=== PATIENT | female | born 1940 | race Caucasian/White ===

== ENCOUNTER 2023-05-18 11:00 | Inpatient (IN) | payer OTHER, MEDICARE ==
--- OUTSIDE RECORDS SUMMARY | 2023-05-18 11:04 | XMS REPORT | Continuity of Care Document ---
:1940 Author Organization [facility] t Address [address] [place] [address] [place] [id number] Care Team Providers Name Role Phone LINDSEYAbhishekSHERRILLBRIELLEMARIA CEdson Primary Care Physician Unavailable EMIL DUTTON Attending Clinician Unavailable SHANNAN BUI Attending Clinician Unavailable TYRONE PEACE Attending Clinician Unavailable Doctor Unassigned, [place] Attending Clinician Unavailable Yasir CARABALLO, Erick Negrete Attending Clinician Unavailable Mike Car DO Attending Clinician JOSE ALFREDO PREES Attending Clinician Ewa breanna Kendrick MD, Kwabena Guzman Attending Clinician [phone] Pasquale SERVIN, Mounika Phelps Attending Clinician [phone] [place] ODONNELL, Jose Alfredo [facility] Attending Clinician Pob, Adc Lab Main Attending Clinician Unavailable Mattie ODONNELL, Cheryl Attending Clinician CHERYL RICHARDSON Attending Clinician Unavailable Gurinder Rebolledo MD Attending Clinician GURINDER REBOLLEDO Attending Clinician Unavailable EMIL SCHUSTER Attending Clinician Unavailable Obi Attending Clinician Unavailable EMIL DUTTON Admitting Clinician Unavailable SHANNAN BUI Admitting Clinician Unavailable PASQUALE, MOUNIKA PHELPS Admitting Clinician Unavailable Pasquale SERVIN, Mounika Phelps Admitting Clinician [phone] Obi Admitting Clinician Unavailable Payers Payer Name Policy Type Policy Number Effective Date Expiration Date S steven MEDICARE B-[place]: [id number] 2003 [employer] 00:00:00 [employer] [id number] INSURANCE COMPANY - PLAN G (MEDICARE SUPPLEMENT) Problems Condition Condition Condition Status Onset Resolution Last Treating Co mments Source Name Details Category Date Date Treatment Clinician Date Atrial Atrial Disease Active Univers fibrillati fibrillati 6-11 it y of on, on, 00:00: [place] unspecifie unspecifie 00 Me dical d type d type Branch Chest Chest Disease Active Univers pain, pain, 6-10 ity of unspecifie [place]specifie 00:[place] d type d type 00 Medical Branch Allergies, Adverse Reactions, Alerts Allergy Allergy Status Severity Reaction(s) Onset Inactive Treating Comm ents Source Name Type Date Date Clinician Levoflox Propensi Active Other - See U nivers acin ty to comments 05-04 ity of adverse 00:00: [place] reaction 00 Medical s Branch LEVOFLOX DRUG Active Other-Cmnt Univ ers ACIN INGREDI 6 ity of 00:00: [place] 00 Medical Branch levoflox DA Active SV leg swelling HC A acin 4-27 Clear 00:00: [place] 00 [facility] levoflox DA Active [facility] acin 9 [place] 00:00: [facility]ope 00 dic [facility] Sulfa DA Active [place] [facility] (Sulfona 3-19 [place] mide 00:00: Orthope Antibiot 00 dic ics) Hospita [facility] iodine DA Active [place] [facility] 3-19 [place] 00:00: Orthope 00 dic Hospita l NO KNOWN Drug Active Univers ALLERGIE Class ity of S [facility] [place] [facility] Social History Social Habit Start Date Stop Date Quantity Comments Source Exposure to 2022-04-25 2022-05-05 Unable to assess Univers ity of SARS-CoV-2 00:00:00 02:23:00 [facility] (event) [place] Tobacco use and 2020-07-19 2020-07-19 Smokeless tobacco Un iversity of exposure 00:00:00 00:00:00 non-user [facility] [place] [facility] Sex Assigned At [birth year] Universit y of 00:00:00 00:00:00 [facility] [place] [facility] Smoking Status Start Date Stop Date Source Unknown if ever smoked [facility] Never smoked tobacco [facility] Medications Ordered Filled Start Stop Current Ordering Indication Dosage Frequency Signature Comments Components Source Medication Medication Date Date Medication? Clinician (SIG) Name Name clonazePAM Yes 1mg 1 mg, Univer s (KLONOPIN) 6-11 Oral, TID, ity of tablet 1 mg 19:00: First dose [place] 00 on [facility] 05/06/22 at Branch 1400, Until Discontinu ed, Routine apixaban Yes 2.5mg 2.5 mg, Unive rs (ELIQUIS) 6-11 Oral, BID, ity of tablet 2.5 18:15: First dose [place] mg 00 on [facility] 05/06/22 at Branch 1315, Until Discontinu ed, Routine
Indicatio ns: Non-Valvul ar Atrial Fibrillati on clonazePAM Yes 1mg Take 1 mg Un joselito 1 mg tablet 6-11 by mouth 3 it y of 17:17: (three) [place] 06 times Medical daily. Branch clonazePAM 2021-0 Yes 1mg Take 1 mg Un joselito 1 mg tablet 6-11 by mouth 3 it y of 17:17: (three) [place] 06 times Medical daily. Branch clonazePAM 2021-0 Yes 1mg Take 1 mg Un joselito 1 mg tablet 6-11 by mouth 3 it y of 17:17: (three) [place] 06 times Medical daily. Branch clonazePAM Yes 1mg Take 1 mg Un joselito 1 mg tablet 05-06 by mouth 3 it y of 17:17: (three) [place] 06 times Medical daily. Branch clonazePAM Yes 1mg Take 1 mg Un joselito 1 mg tablet 05-06 by mouth 3 it y of 17:17: (three) [place] 06 times Medical daily. [place] magnesium No 2g 2 g, IV Univ ers sulfate in 05-06 Piggyback, it y of water 2 12:00: 17:45 Administer [place] as gram/50 mL 00 :00 over 60 Medica l (4 %) Minutes, [place] infusion 2 ONCE, 1 g dose, On [facility] 05/06/22 at 0700, Routine KCL No 20meq 20 mEq, Univers (KLOR-CON 05-06 Oral, ity of M20) tablet 12:00: 16:45 ONCE, 1 [place] 20 mEq 00 :00 dose, On Medical Sat [place] 05/06/22 at 0700, Routine predniSONE No 20mg Take 20 mg Univers 20 mg 05-06 by mouth ity of tablet 10:49: 00:00 daily. [place] 53 :00 Medical [place] atorvastati Yes 80mg 80 mg, Univ ers n (LIPITOR) 05-06 Oral, QHS, it y of tablet 80 02:00: [place] dose [place] mg 00 [place] Sun [facility] 05/05/22 at [place] 2100, Until Discontinu ed, Routine apixaban 2021- No 1358 2.5mg Take 1 Unive rs 2.5 mg 05-06 tablet by ity of tablet 00:00: 04:59 mouth 2 [place] 00 :00 (two) Medical [facility] daily for 60 days. Indication s: atrial fibrillati on metoprolol 2021- No [id number] 25mg Take 1 Univers succinate 05-06 tablet by ity of XL 25 mg 24 00:00: 04:59 [place] hr tablet 00 :00 daily for Medic al 60 days. [place] apixaban 2021- No 1358 2.5mg Take 1 Unive rs 2.5 mg 6-11 08-11 tablet by ity of tablet 00:00: 04:59 mouth 2 [place] 00 :00 (two) Medical times [place] daily for 60 days. Indication s: atrial fibrillati on metoprolol 2021- No [id number] 25mg Take 1 Univers succinate 6- 08-11 tablet by ity of XL 25 mg 24 00:00: 04:59 [place] hr tablet 00 :00 daily for Medic al 60 days. Branch apixaban 2021- No 1358 2.5mg Take 1 Unive rs 2.5 mg 6- 08-11 tablet by ity of tablet 00:00: 04:59 mouth 2 [place] 00 :00 (two) Medical times [place] daily for 60 days. Indication s: atrial fibrillati on metoprolol No [id number] 25mg Take 1 Univers succinate 6- 08-11 tablet by ity of XL 25 mg 24 00:00: 04:59 mouth [place] hr tablet 00 :00 daily for Medic al 60 days. Branch apixaban 2021- No 1358 2.5mg Take 1 Unive rs 2.5 mg 6-10 03-11 tablet by ity of tablet 00:00: 04:59 mouth 2 [place] 00 :00 (two) Medical times [place] daily for 60 days. Indication s: atrial fibrillati on metoprolol No [id number] 25mg Take 1 Univers succinate 6- 08-11 tablet by ity of XL 25 mg 24 00:00: 04:59 mouth [place] hr tablet 00 :00 daily for Medic al 60 days. Branch apixaban 2021- No 1358 2.5mg Take 1 Unive rs 2.5 mg 6- 08-11 tablet by ity of tablet 00:00: 04:59 mouth 2 [place] 00 :00 (two) Medical times [place] daily for 60 days. Indication s: atrial fibrillati on metoprolol No [id number] 25mg Take 1 Univers succinate 6-11 08-11 tablet by ity of XL 25 mg 24 00:00: 04:59 mouth [place] hr tablet 00 :00 daily for Medic al 60 days. Branch predniSONE 2021- No [id number] 10mg Take 1 Univers 10 mg 05-06 tablet by ity of tablet 00:00: 04:59 mouth [place] 00 :00 daily for Medical 1 day. Branch HEPARIN 2021- No 60U/kg 2,724 Univer s SODIUM 6 06-10 Units (60 ity of (PORCINE) 18:30: 21:20 Units/kg [place] as 1,000 00 :00 ?45.4 kg), Medical UNIT/ML IV Push, Branch BOLUS ACS ONCE, 1 ORDER SET dose, On Sun05/05/22 at 1330, RUSSELL heparin 2021- No 12U/kg/ 12 Univer s 25,000 05-05 06-11 h Units/kg/h ity of Units/250 18:22: 18:06 r ?45.4 kg [place] mL 05 :34 (5.448 Medical (Premixed mL/hr, Branch Bag) in rounded to 0.45 % NS 5.45 mL/hr), IV Infusion, TITRATE, Parameters in Admin. Instr., Starting on Sun05/05/22 at 1322
CA UTION - If LMWH given in ER, AVOID bolus and start next dose/drip 12 hrs after ER dosage.&nb sp; M ust program rate using programmab le infusion pump.&nbsp ; Payton ck with the ordering provider first prior to any administra tion should the patient be on existing/a dditional anticoagul ant therapy. Rang e, Dosing and Testing: &nbs p;FOR [facility], [facility], AND [facility] ONLY &nbs p; - aPTT < 35: & nbsp;Bolus 5000 units, increase rate 300 units/hr&n bsp; - aPTT 35-44:&nbs p; Jai tanmay 3000 units, increase rate 200 units/hr&n bsp; - aPTT 45-54:&nbs p; In crease rate 100 units/hr&n bsp; - aPTT 55-85:&nbs p; NO CHANGE&nbs p; - aPTT 86-95:&nbs p; De crease rate 100 units/hr&n bsp; - aPTT 96-120:&nb sp; H old 30 minutes, decrease rate 150 units/hr&n bsp; - aPTT > 120: Hold 60 minutes, decrease rate 200 units/hr&n bsp; Check aPTT 6 hours after initiation , then Q6H after every change, aPTT Q12H once therapeuti c levels are reached.&n bsp; &nbs p; __ &n bsp;FOR [facility] ONLY - aPTT < 40: & nbsp;Bolus 5000 units, increase rate 300 units/hr&n bsp; - aPTT 40-49:&nbs p; Jai tanmay 3000 units, increase rate 200 units/hr&n bsp; - aPTT 50-59:&nbs p;&nbs p;Increase rate 100 units/hr&n bsp; - aPTT 60-85:&nbs p; NO CHANGE&nbs p; - aPTT 86-95:&nbs p; De crease rate 100 units/hr&n bsp; - aPTT 96-120:&nb sp; H old 30 minutes, decrease rate 150 units/hr&n bsp; - aPTT > 120: Hold 60 minutes, decrease rate 200 units/hr&n bsp; Check aPTT 6 hours after initiation , then Q6H after every change, aPTT Q12H once therapeuti c levels are reached.&n bsp; DO NOT ADJUST INITIAL BOLUS OR INITIAL INFUSION RATE.
regadenoson 2021- No [id number] .4mg 0.4 mg, Univers (LEXISCAN) 05-05 Slow IV ity o f injection 17:15: 17:00 Push, [place] 0.4 mg 00 :00 ONCE, 1 Medical dose, On Branch Sun05/05/22 at 1215, Routine
vulcan crewmember approving Restricted medication : KARI MENESES tc 2021- No [id number] 14.7mCi 14.7 Unive rs 99m-tetrofo 05-05 millicurie i ty of smin 17:00: 18:00 , [place] (MYOVIEW) 00 :00 Intravenou Medi michell injection s, ONCE, 1 Bran ch 14.7 dose, [facility] Sun05/05/22 at 1200, Routine predniSONE Yes 10mg 10 mg, Unive rs (DELTASONE) 05-05 Oral, ity of tablet 10 14:00: DAILY, [place] mg 00 First dose Medical on Sun Branch 05/05/22 at 0900, Until Discontinu ed, Routine aspirin Yes 81mg 81 mg, Univers chewable 10 Oral, ity of tablet 81 14:00: DAILY, [place] mg 00 First dose Medical on Sun Branch 05/05/22 at 0900, Until Discontinu ed, Routine levalbutero Yes .31mg 0.31 mg, U nivers l (XOPENEX) 05-05 Inhalation it y of nebulizer 13:00: , TID, [place] solution 00 First dose Medic al 0.31 mg on Sun Branch 05/05/22 at 0800, Until Discontinu ed, Routine heparin 2021- No 5000U 5,000 Univers (porcine) 05-05 Units, ity of injection 13:00: 18:23 Subcutaneo [place] 5,000 Units 00 :11 us, Q12H, Med ical First dose Branch on Sun05/05/22 at 0800, Until Discontinu ed, Routine KCL 2021- No 40meq 40 mEq, Univers (KLOR-CON 05-05 Oral, 5X ity o f M20) tablet 11:00: 18:59 DAY, 2 [place] as 40 mEq 00 :00 doses, Medical First dose Branch on Sun05/05/22 at 0600, Last dose on Sun05/05/22 at 1000, Routine acetaminoph Yes 650mg 650 mg, Un joselito en 05-05 Oral, ity of (TYLENOL) 08:23: Q6HPRN, [place] tablet 650 33 Starting Medic al mg on Sun Branch 05/05/22 at 0323, Until Discontinu ed, Routine, Pain (scale 1-3) LORazepam 2021- No .5mg 0.5 mg, Univ ers (ATIVAN) 05-05 Slow IV ity of injection 06:30: 05:24 Push, [place] 0.5 mg 00 :00 ONCE, 1 Medical dose, On Branch Sun05/05/22 at 0130, STAT acetaminoph No 1000mg 1,000 mg, Univers en 05-05 Oral, ONCE ity of (TYLENOL) 03:45: 02:46 NOW, 1 [place] tablet 00 :00 dose, On Medical 1,000 mg [facility] 05/04/22 Branc h at 2245, Routine aspirin No 325mg 325 mg, Unive rs tablet 325 05-05 Oral, ity of mg 02:00: 01:00 ONCE, 1 [place] 00 :00 dose, On Medical Ellen 05/04/22 Branch at 2100, STAT diltiazem 2021- No 15mg 15 mg, IV Un joselito (CARDIZEM 05-05 Push, ity of IV) 02:00: 00:53 ONCE, 1 [place] injection 00 :00 dose, On Medica l 15 mg [facility] 05/04/22 Branch at 2100, STAT
Fa culty member approving Restricted medication : KWABENA LEMUS Vital Signs Vital Name Observation Time Observation Value Comments Source Systolic blood 2022-05-06 13:43:00 162 mm[Hg] Univer sity of pressure [facility] [place] [facility] Diastolic blood 2022-05-06 13:43:00 93 mm[Hg] Unive rsity of pressure [facility] Branch Heart rate 2022-05-06 13:43:00 89 /min [facility] Body temperature 2022-05-06 13:43:00 36.56 Twyla [facility] Oxygen saturation in 2022-05-06 13:43:00 95 /min [facility] Arterial blood by [facility] Pulse oximetry Branch Respiratory rate 2022-05-06 13:10:00 16 /min [facility] Body height 2022-05-05 07:26:00 154.9 cm [facility] Body weight 2022-05-05 07:26:00 45.36 kg [facility] BMI 2022-05-05 07:26:00 18.89 kg/m2 [facility] Systolic blood 2020-07-19 20:54:00 153 mm[Hg] Univer sity [facility] Diastolic blood 2020-07-19 20:54:00 84 mm[Hg] Unive ity [facility] Body height 2020-07-19 20:54:00 154 cm [facility] Body weight 2020-07-19 20:54:00 46.811 kg [facility] BMI 2020-07-19 20:54:00 19.74 kg/m2 [facility] Heart rate 2020-07-19 20:51:00 91 /min [facility] Procedures Procedure Date / Time Performing Clinician Source Performed AUTHORIZATION FOR 2022-06-20 05:01:00 Doctor Unassigned, No Univ [facility] RELEASE OF PHI Name Medical Branch MAGNESIUM 2022-05-06 09:33:00 Courtney Esparza [facility] BASIC METABOLIC PANEL 2022-05-06 09:33:00 Courtney Esparza [facility] (NA, K, CL, CO2, Medical Branch GLUCOSE, BUN, CREATININE, CA) ACTIVATED PARTIAL 2022-05-06 05:00:[address] [facility] TROPONIN I 2022-05-05 20:34:00 Niranjan Mulligan [facility] ACTIVATED PARTIAL 2022-05-05 20:34:[address] [facility] TRANSTHORACIC ECHO (TTE) 2022-05-05 19:54:00 Anthony Schmidt [facility] COMPLETE [facility] NM MYOCARDIUM PERFUSION 2022-05-05 18:00:00 Niranjan Mulligan [facility] STRESS ONLY [facility] Branch MAGNESIUM 2022-05-05 09:13:00 Roxana [facility] TROPONIN I 2022-05-05 09:13:00 Niranjan Mulligan [facility] BASIC METABOLIC PANEL 2022-05-05 09:13:00 Anthony Schmidt [facility] (NA, K, CL, CO2, Medical Branch GLUCOSE, BUN, CREATININE, CA) LIPID PANEL 2022-05-05 09:13:00 Anthony Schmidt [facility] ([id number])(TOTAL [facility] CHOLESTEROL, TRIGLYCERIDES, HDL) CBC WITH DIFF 2022-05-05 09:13:00 Roxana [facility] GLYCOSYLATED HEMOGLOBIN 2022-05-05 09:13:00 [facility] PROTHROMBIN TIME / INR 2022-05-05 09:13:00 Roxana [facility] ACTIVATED PARTIAL 2022-05-05 09:13:00 [facility]W 2022-05-05 01:45:00 Kwabena Kendrick [facility] CBC WITH DIFF 2022-05-05 00:52:00 [facility] 2022-05-05 00:51:00 Kwabnea Kendrick [facility] COMP. METABOLIC PANEL 2022-05-05 00:51:00 Kwabena Kendrick [facility] ([id number]) [facility] N-TERMINAL PRO-BNP 2022-05-05 00:51:00 Kwabena Kendrick [facility] HB ECG ROUTINE & RHYTHM 2022-05-05 00:46:59 Kwabena Kendrick Un iversity of [facility] PHYSICIAN ORDERS 2021-11-16 06:01:00 Doctor Unassigned, No [facility] CBC WITH DIFF 2021-05-20 14:42:00 Cory Rodriguez [facility] [place] [facility] PHYSICIAN ORDERS 2021-05-20 05:01:00 Doctor Unassigned, No [facility]IGN[facility] OF BENEFITS 2020-07-19 20:31:34 Doctor Unassigned, No [facility] Encounters Start End Encounter Admission Attending Care Care Encounter Source Date/Time Date/Time Type Type Clinicians Facility Department ID 2023-02-01 2023-02-01 Outpatient MARIJA, SE PUL [id number] MH 14:32:00 23:59:00 [facility] 2022-10-04 2022-10-04 Outpatient MARIJA, MHSE PUL [id number] MH 13:45:00 23:59:[facility] 2022-09-08 2022-09-14 Inpatient U SHANNAN BUI MHSE MED [id number] MH 17:38:00 16:17:[address] [facility] 2022-09-02 2022-09-02 Emergency E KOBI, BL MHBL [id number] MHBL 11:28:00 17:37:00 TYRONE 2022-06-20 2022-06-20 Orders Doctor LISBETH [id number] Univers 00:00:00 00:00:00 Only Unassigned, SARTHAK 350.1.13.10 ity of [place] [facility] 4.2.7.2.686 Phillip as [phone] [facility] 009 Branch 2022-05-15 2022-05-15 Transition TATI Cooley [id number] Univers 00:00:00 00:00:00 of Care Erick MUÑOZ 350.1.13.10 [place]y of [place] [id number] [facility] 403 Branch 2022-05-10 2022-05-10 RefKENNY Tellez [id number] Univers 00:00:00 00:00:00 Mike PRIMARY 350.1.13.10 it y of C[place] 4[place]2.7.2.686 [place] [id number] Pa dical 390 Branch 2022-05-08 2022-05-08 Transition TATI Cooley [id number] Univers 00:00:00 00:00:00 of Care Erick RAINEYY 350.1.13.10 [place] [phone] [facility] 403 Branch 2022-05-04 2022-05-06 Inpatient X GUANACO, [facility] [id number] Univers 19:48:00 16:00:00 MOSTAFA ity of [facility] [place] [facility] 2022-05-04 2022-05-06 [facility] Kwabena Kendrick 1 .2.840.114 [id number] Univers 19:48:00 16:00:00 Encounter PasqualeMounika 350.1.1 3.10 ity of [place], Jose Alfredo [facility] 4.2.7.2.686 [place] [id number] [facility] 091 Branch 2021-11-16 2021-11-16 Commodity Director Pearl, Mariusz Lab Main [facility] 1.2.8 40.114 [id number] Univers 10:15:00 10:30:00 Visit Cheryl Richardson 350.1.13.10 ity of [place] 4[place]2.7.2.686 [place] [phone] Pa dical NAL 353 Branch BUILDING 2021-11-16 2021-11-16 Outpatient R MATTIE [facility] [id number] Univers 10:15:00 10:15:00 CHERYL itbrenton of [facility] [place] [facility] 2021-11-16 2021-11-16 Orders Doctor BOB 1.2.840.114 [id number] Univers 00:00:00 00:00:00 Only Unassigned, SARTHAK 350.1.13.10 ity of [place] [facility] 4.2.7.2.686 Phillip as [phone] [facility] 009 Branch 2021-05-20 2021-05-20 [facility] [id number] Univers 09:45:00 09:45:00 CHERYL sher [facility] 2021-05-20 2021-05-20 Commodity Director Mariusz Kang Lab Main [facility] 1.2.8 40.114 [id number] Univers 09:27:21 09:42:21 Visit Cheryl Richardson [place] 350.1.13.10 ity of [place] 4.2.7.2.[place] Professio [phone] Pa dical nal 353 [facility] 2021-05-20 2021-05-20 Orders Doctor LISBETH 1.2.840.114 [id number] Univers 00:00:00 00:00:00 Only Unassigned, SARTHAK 350.1.13.10 ity of [place] [facility] 4.2.7.2.686 Phillip as [phone] [address] 2020-07-19 2020-07-19 Office [facility] [id number] Univers 15:34:08 16:20:11 Visit [facility] 350.1.13.10 it y of Surgical 4.2.7.2.686 Phillip as Specialti [phone] Pa dical [facility] 2020-07-19 2020-07-19 [facility] [id number] Univers 15:15:00 15:15:00 [facility] 2020-07-19 2020-07-19 Orders Doctor LISBETH 1.2.840.114 [id number] Univers 00:00:00 00:00:00 Only Unassigned, SARTHAK 350.1.13.10 ity of [place] [facility] 4.2.7.2.686 Phillip as [phone] [address] 2020-01-26 2020-01-26 Emergency E LANDEN, CRISSYSE MHSE [id number] 11:42:00 11:42:[address] [facility] 2020-01-26 2020-01-26 Outpatient TIFFANY DUTTON PUL [id number] MH 09:51:00 09:51:[address] [facility] 2017-01-29 2017-01-29 Outpatient C_Musa [facility] [id number] [place] 04:11:00 04:11:00 0609 Medical Group Results Test Description Test Time Test Comments Results Result Comments Source BASIC METABOLIC PANEL (NA, K, CL, CO2, GLUCOSE, BUN, 2022-04 10:53:23 CREATININE, CA) Test Item Value Reference Range Interpretation Comme nts NA (test code = 2703038919) 138 mmol/L 135-145 K (test code = 9678533820) 3.9 mmol/L 3.5-5.0 S light hemolysis CL (test code = 9190806451) 107 mmol/L 98-108 CO2 TOTAL (test code = 26 mmol/L 23-31 0664953700) AGAP (test code = 2-16 6983157227) BUN (test code = 15 mg/dL 7-23 Slight hemo lysis 5985631353) GLUCOSE (test code = 86 mg/dL 70-110 4319535524) CREATININE (test code = 0.44 mg/dL 0.50-1.04 L 2162285566) CALCIUM (test code = 8.6 mg/dL 8.6-10.6 6387903639) eGFR (test code = mL/min/1.73m2 8649397223) SHERON (test code = SHERON) Association of Glomerular Filtration Rate (GFR) and Staging of Kidney Disease* + + +--- +| GFR (mL/min/1.73 m2) ?| With Kidney Damage ?| ?Without Kidney Damage+ -----+ --+ ---+| ?>90 ?| ?Stage one ?| ? Normal ?+ + +-- +| ?60-89 ?| ?Stage two ?| ? Decreased GFR ? + + +--- +| ?30-59 ?| ?Stage three ?| ? Stage three ? + + +--- +| ?15-29 ?| ?Stage four ? | ? Stage four ?+ + +-- +| ?<15 (or dialysis) ? ?| ?Stage five ? | ? Stage five ?+ + +-- + *Each stage assumes the associated GFR level has been in effect for at least three months. ?Stages 1 to 5, with or without kidney disease, indicate chronic kidney disease. Notes: Determination of stages one and two (with eGFR >59mL/min/1.73 m2) requires estimation of kidney damage for at least three months as defined by structural or functional abnormalities of the kidney, manifested by either:Pathological abnormalities or Markers of kidney damage (including abnormalities in the composition of the blood or urine or abnormalities in imaging tests). Lab Interpretation (test Abnormal code = 77118-2) [place] [facility] 10:53:23 Test Item Value Reference Range Interpretation Comments MAGNESIUM (test code = 5880980427) 1.8 mg/dL 1.7-2.4 Lab Interpretation (test code = Normal 28352-5) [place] [facility] (for use with Heparin Infusion)2022-05-06 06:09:23 Test Item Value Reference Range Interpretation Comments APTT Patient (test code See_Comment H [Au tomated message] = 3173-2) The system [employer] generated this result transmitted ref erence range: 26 - 36 Seconds. The reference range was not used to int erpret this result as normal/abnormal . Lab Interpretation (test Abnormal code = 64866-5) [place] [facility] Dallas[facility]ansthor[facility] echo (TTE)2022-05-05 23:46:22 Test Item Value Reference Range Interpretation Comments Height (test code = in 0644645186) Weight (test code = lbs 7700151017) Systolic BP (test code = mmHg 5088707860) Diastolic BP (test code mmHg = 3639417407) LVOT stroke volume (test 45.80 cm3 code = 2678729804) EF (HM) (test code = 57.00 % 6170651778) EF(Teich) (test code = 48.60 % 7145028424) LVIDD (test code = 3.20 cm 9641269712) LVIDS (test code = 2.41 cm 4970563478) IVS (test code = 1.30 cm 4152493559) LVPWD (test code = 1.39 cm 4522704406) LVOT diameter (test code 1.81 cm = 9136019118) FS (test code = 24 % 5818600570) MV Peak E Mack (test code 76.7 cm/s = 7916162646) MV Peak A Mack (test code 95.5 cm/s = 5393824242) E/A ratio (test code = ratio [id number]) E wave decelartion time 0.17 s (test code = 0577596676) MV E/e' septal (test 5.4 cm/s code = 8044528393) LA Volume Index (BP) 34.4 mL/m2 (test code = 7670816086) LA volume (BP) (test 48.5 mL code = 9498530219) LVOT peak mack (test code 81.4 cm/s = 7930886258) LVOT mn grad (test code mmHg = 6136762011) Left Ventricular Cardiac 3.4 L/min Output (test code = 0920414) ED Current (HM) (test 60.00 % code = 1255053250) ED Default (HM) (test 60.00 % code = 2806387795) SV (HM) (test code = 47.00 mL 8920093198) BSA (test code = 1.41 m2 6513543115) LA size (test code = 4.2 cm 5197549637) LAV(MOD-sp2) (test code 68.10 mL = 3060400134) LAV(MOD-sp4) (test code 34.80 mL = 4794689839) Tapse (test code = 2.15 cm 6654883299) AV LVOT peak gradient mmHg (test code = 0667428793) LVOT peak VTI (test code 17.9 cm = 5922309755) Aortic HR (test code = BPM 2073697105) LV V1 mean (test code = 54.50 cm/s 3326357224) MV Prop V (test code = 43.60 cm/s 2638029314) TR Peak Mack (test code = 230.1 cm/s 2004081229) Triscuspid Valve mmHg Regurgitation Peak Gradient (test code = 8397580399) Ao root annulus (test 3.3 cm code = 4451077770) Ao root diam (test code 3.30 cm = 7209030306) Aortic root (test code = 3.3 cm 7210191002) PW (test code = 1.39 cm 0.6-1.9 5705889531) EF - 2D (test code = 48.60 % 05280266) Interventricular Septum 1.30 cm Diastolic Thickness by 2D (test code = 2567512) Aortic valve mean 58.9 cm/s velocity (test code = 8128271552) Ao peak mack (test code = 85.5 cm/s 8539677300) Ao VTI (test code = 18.7 cm 0949858113) AV area by cont VTI 2.5 cm2 (test code = 5809590932) AV area peak mack (test 2.4 cm2 code = 9593651581) Ao max PG (test code = 2.90 mm[Hg] 7176365862) AV peak gradient (test mmHg code = 0054859995) AV valve area (test code 2.46 cm2 = 5965990050) AV mean gradient (test mmHg code = 1053276186) Radiology Study observation (narrative) (test code = 79121-0) SHERON (test code = SHERON) ?Left?Ventricle: Left ventricle is normal in size and function. There is mild concentric hypertrophy with RWT 0.79, LV mass 142 g, LV mass index 101 g/m2. Normal systolic function with a visually estimated EF of 55 - 60%. There is pseudonormal diastolic dysfunction. ?Tricuspid?Valve: Mild to moderate transvalvular regurgitation. Right ventricular systolic pressure is 20-25 mmHg. ?Right?Ventricle: Right ventricle is normal in size and function. Normal wall thickness. ?IVC/SVC: IVC diameter is less than or equal to 21 mm and decreases less than 50% during inspiration; therefore the estimated right atrial pressure is intermediate (~8 mmHg). ?IVC normal in size and respiratory variation. ?Aortic?Valve: Severely thickened cusps. Severely calcified cusps. Complete interrogation of aortic valve was not performed. With the limited interrogation, the valve appears to open and stenosis does not appear to be severe. ?Mitral?Valve: Moderately thickened leaflets. Mildly calcified leaflets. Moderate mitral annular calcification. No significant stenosis. Rachid Hendricks [facility] [id number] 21:37:21 Test Item Value Reference Interpretation Comments Range TROPONIN I (test 0.142 ng/mL See_Comment H [Automated code = 5995647429) message] The system which generated this result transmitted reference range : <=0.034. The reference range was not used to interpret this result as normal/abnormal . SHERON (test code = Reference (Normal) SHERON) Range (defined by the 99th percentile reference limit): <= 0.034 ng/mL Note: Cardiac troponin begins to rise 3-4 hours after the onset of ischemia. Repeat in 4-6 hours if the sample was drawn within 3-4 hours of the onset of the symptom and found normal. Diagnosis of myocardial injury is made with acute changes in cTn concentrations with at least one serial sample above the 99th percentile upper reference limit (URL), taken together with the patient's clinical presentation. Biotin has been reported to cause a negative bias, interpret results relative to patient's use of biotin. Lab Interpretation Abnormal (test code = 86158-1) [facility] 20:56:29 Test Item Value Reference Range Interpretation Comments APTT Patient (test code = See_Comment [ Automated message] 3173-2) The system [employer] generated this result transmitted ref erence range: 26 - 36 Seconds. The re ference range was not u sed to interpret this result as normal/abnor mal. Lab Interpretation (test Normal code = 42818-0) [facility] DallasTROP[facility] [id number] 17:01:12 Test Item Value Reference Interpretation Comments Range TROPONIN I (test 0.334 ng/mL See_Comment H [Automated code = 6082275388) message] The system which generated this result transmitted reference range : <=0.034. The reference range was not used to interpret this result as normal/abnormal . SHERON (test code = Reference (Normal) SHERON) Range (defined by the 99th percentile reference limit): <= 0.034 ng/mL Note: Cardiac troponin begins to rise 3-4 hours after the onset of ischemia. Repeat in 4-6 hours if the sample was drawn within 3-4 hours of the onset of the symptom and found normal. Diagnosis of myocardial injury is made with acute changes in cTn concentrations with at least one serial sample above the 99th percentile upper reference limit (URL), taken together with the patient's clinical presentation. Biotin has been reported to cause a negative bias, interpret results relative to patient's use of biotin. Lab Interpretation Abnormal (test code = 52372-2) [facility]GLYCOSYLATED H[facility]OGLOBIN (A1C)2022-05-05 12:22:37 Test Item Value Reference Range Interpretation Comments HGB A1C (test code = 5.7 % 4.0-5.7 4548-4) SHERON (test code = SHERON) Reference RangesNormal: <5.7%Prediabetes: 5.7 - 6.4%Diabetes: > 6.5% Lab Interpretation (test Normal code = 43295-4) [facility] DallasLIPID PANEL (30421)(TOTAL CHOLESTEROL, TRIGLYCERIDES, HDL)2022-05-05 12:05:05 Test Item Value Reference Range Interpretation Comments CHOL (test code = 138 mg/dL 120-200 8130152950) HDL (test code = 60 mg/dL >50 4119007181) HDLC RATIO (test code = See_Comment [Au tomated message] 6787703437) The system [employer] generated this result transmit mary reference range : <=4.5. The refe rence range was not u sed to interpret th is result as normal/abnormal . TRIG (test code = 41 mg/dL 30-170 4753387608) LDL CHOL (test code = 70 mg/dL See_Comment [Auto mated message] 30971-1) The system [employer] generated this result transmit mary reference range : <=160. The refe rence range was not u sed to interpret th is result as normal/abnormal . VLDL (test code = 8 mg/dL 5-60 8627300343) Lab Interpretation (test Normal code = 45008-9) [facility] METABOLIC PANEL (NA, K, CL, CO2, GLUCOSE, BUN, CREATININE, CA)2022-05-05 10:13:58 Test Item Value Reference Range Interpretation Comments NA (test code = 141 mmol/L 135-145 7844004119) K (test code = 3.3 mmol/L 3.5-5.0 L 7215243980) CL (test code = 105 mmol/L 98-108 7632440794) CO2 TOTAL (test code = 33 mmol/L 23-31 H 1181181451) AGAP (test code = 2-16 3163364897) BUN (test code = 20 mg/dL 7-23 5305875771) GLUCOSE (test code = 86 mg/dL 70-110 4583073415) CREATININE (test code = 0.66 mg/dL 0.50-1.04 5199505917) CALCIUM (test code = 8.5 mg/dL 8.6-10.6 L 6532752955) eGFR (test code = mL/min/1.73m2 0403264390) SHERON (test code = SHERON) Association of Glomerular Filtration Rate (GFR) and Staging of Kidney Disease* + --+ --+ ------+| GFR (mL/min/1.73 m2) ?| With Kidney Damage ?| ?Without Kidney Damage+ --------+ --------+ +| ?>90 ?| ?Stage one ?| ? Normal ?+ ---+ ---+ -------+| ?60-89 ?| ?Stage two ?| ? Decreased GFR ? + --+ --+ ------+| ?30-59 ?| ?Stage three ?| ? Stage three ? + --+ --+ ------+| ?15-29 ?| ?Stage four ? | ? Stage four ?+ ---+ ---+ -------+| ?<15 (or dialysis) ? ?| ?Stage five ? | ? Stage five ?+ ---+ ---+ -------+ *Each stage assumes the associated GFR level has been in effect for at least three months. ?Stages 1 to 5, with or without kidney disease, indicate chronic kidney disease. Notes: Determination of stages one and two (with eGFR >59mL/min/1.73 m2) requires estimation of kidney damage for at least three months as defined by structural or functional abnormalities of the kidney, manifested by either:Pathological abnormalities or Markers of kidney damage (including abnormalities in the composition of the blood or urine or abnormalities in imaging tests). Lab Interpretation Abnormal (test code = 16960-9) [facility] DallasMagnesium [id number] 10:13:58 Test Item Value Reference Range Interpretation Comments MAGNESIUM (test code = 6949784577) 2.1 mg/dL 1.7-2.4 Lab Interpretation (test code = Normal 37420-6) [facility] DallasProthrombin Time / [id number] 09:37:34 Test Item Value Reference Range Interpretation Comments PROTIME PATIENT (test See_Comment [Auto mated message] code = 5964-2) The system wh ich generated this result transmitted ref erence range: 10.1 - 1 2.6 Seconds. The re ference range was not u sed to interpret this result as normal/abnor mal. INR (test code = 6301-6) Nor mal INR <1.1; Warfarin Therap eutic range 2.0 to 3. 0 or 2.5 to 3.5, dep ending upon the indica tions. Lab Interpretation (test Normal code = 57629-1) [facility]aPTT2022-[facility]-10 09:37:34 Test Item Value Reference Range Interpretation Comments APTT Patient (test code = See_Comment [ Automated message] 3173-2) The system whic h generated this result transmitted ref erence range: 26 - 36 Seconds. The re ference range was not u sed to interpret this result as normal/abnor mal. Lab Interpretation (test Normal code = 25133-0) [facility] WITH [id number] 09:24:32 Test Item Value Reference Range Interpretation Comments WBC (test code = See_Comment [Automated 0090-2) message] The sy stem which generated this result transmitted reference range : 4.30 - 11.10 10*3/?L. The reference range was not used to interpret this result as normal/abnormal . RBC (test code = See_Comment [Automated 049-8) message] The sy stem which generated this result transmitted reference range : 3.93 - 5.25 10*6/?L. The reference range was not used to interpret this result as normal/abnormal . HGB (test code = 11.6 g/dL 11.6-15.0 718-7) HCT (test code = 35.6 % 35.7-45.2 L 4544-3) MCV (test code = 84.8 fL 80.6-95.5 787-2) MCH (test code = 27.6 pg 25.9-32.8 785-6) MCHC (test code = 32.6 g/dL 31.6-35.1 786-4) RDW-SD (test code = 52.8 fL 39.0-49.9 H 70441-6) RDW-CV (test code = 17.2 % 12.0-15.5 H 788-0) PLT (test code = See_Comment [Automated 777-3) message] The sy stem which generated this result transmitted reference range : 166 - 358 10*3/ ?L. The reference r aaron was not used to interpret this result as normal/abnormal . MPV (test code = 10.1 fL 9.5-12.9 62811-3) NRBC/100 WBC (test See_Comment [Automat ed code = 7692001874) message] The system which generated this result transmitted reference range : 0.0 - 10.0 /100 WBCs. The refer ence range was not u sed to interpret th is result as normal/abnormal . NRBC x10^3 (test code <0.01 See_Comment [Auto mated = 5549800369) message] The s ystem which generated this result transmitted reference range : 10*3/?L. The reference range was not used to interpret this result as normal/abnormal . GRAN MAT (NEUT) % 66.6 % (test code = 770-8) IMM GRAN % (test code 0.20 % = 4934677787) LYMPH % (test code = 21.4 % 736-9) MONO % (test code = 10.3 % 5905-5) EOS % (test code = 1.1 % 713-8) BASO % (test code = 0.4 % 706-2) GRAN MAT x10^3(ANC) 5.71 10*3/uL 1.88-7.09 (test code = 3135377435) IMM GRAN x10^3 (test <0.03 0.00-0.06 code = 6587904248) LYMPH x10^3 (test code 1.83 10*3/uL 1.32-3.29 = 731-0) MONO x10^3 (test code 0.88 10*3/uL 0.33-0.92 = 742-7) EOS x10^3 (test code = 0.09 10*3/uL 0.03-0.39 711-2) BASO x10^3 (test code 0.03 10*3/uL 0.01-0.07 = 704-7) Lab Interpretation Abnormal (test code = 37278-3) [facility] [id number] 01:34:30 Test Item Value Reference Interpretation Comments Range TROPONIN I (test 0.005 ng/mL See_Comment [Automated code = 4523025059) message] The system which generated this result transmitted reference range : <=0.034. The reference range was not used to interpret this result as normal/abnormal . SHERON (test code = Reference (Normal) SHERON) Range (defined by the 99th percentile reference limit): <= 0.034 ng/mL Note: Cardiac troponin begins to rise 3-4 hours after the onset of ischemia. Repeat in 4-6 hours if the sample was drawn within 3-4 hours of the onset of the symptom and found normal. Diagnosis of myocardial injury is made with acute changes in cTn concentrations with at least one serial sample above the 99th percentile upper reference limit (URL), taken together with the patient's clinical presentation. Biotin has been reported to cause a negative bias, interpret results relative to patient's use of biotin. Lab Interpretation Normal (test code = 61207-9) [facility] DallasN-TERMINAL [id number] 01:31:28 Test Item Value Reference Range Interpretation Comments NT-proBNP (test code 496 pg/mL See_Comment H [Autom ated = 8919853811) message] The system which generated this result transmitted reference range : <=450. The reference range was not used to interpret this result as normal/abnormal . SHERON (test code = SHERON) Biotin has been reported to cause a negative bias, interpret results relative to patient's use of biotin. Lab Interpretation Abnormal (test code = 17343-5) [facility] DallasCOMP. METABOLIC PANEL (21374)2022-05-05 01:22:49 Test Item Value Reference Range Interpretation Comments NA (test code = 137 mmol/L 135-145 9297076277) K (test code = 4.2 mmol/L 3.5-5.0 3758062725) CL (test code = 101 mmol/L 98-108 0059698555) CO2 TOTAL (test code = 28 mmol/L 23-31 3977317234) AGAP (test code = 2-16 8409216090) BUN (test code = 26 mg/dL 7-23 H 3386633982) GLUCOSE (test code = 187 mg/dL 70-110 H 4650577730) CREATININE (test code = 0.61 mg/dL 0.50-1.04 7572080034) TOTAL BILI (test code = 0.5 mg/dL 0.1-1.4 2237190923) CALCIUM (test code = 8.9 mg/dL 8.6-10.6 2324844415) T PROTEIN (test code = 6.8 g/dL 6.3-8.2 3608071114) ALBUMIN (test code = 3.9 g/dL 3.5-5.0 6527390534) ALK PHOS (test code = 46 U/L 34-122 1800617807) ALTv (test code = 23 U/L 5-35 1742-6) AST(SGOT) (test code = 38 U/L 13-40 7080544632) eGFR (test code = mL/min/1.73m2 4306134313) SHERON (test code = SHERON) Association of Glomerular Filtration Rate (GFR) and Staging of Kidney Disease* + --+ --+ ------+| GFR (mL/min/1.73 m2) ?| With Kidney Damage ?| ?Without Kidney Damage+ --------+ --------+ +| ?>90 ?| ?Stage one ?| ? Normal ?+ ---+ ---+ -------+| ?60-89 ?| ?Stage two ?| ? Decreased GFR ? + --+ --+ ------+| ?30-59 ?| ?Stage three ?| ? Stage three ? + --+ --+ ------+| ?15-29 ?| ?Stage four ? | ? Stage four ?+ ---+ ---+ -------+| ?<15 (or dialysis) ? ?| ?Stage five ? | ? Stage five ?+ ---+ ---+ -------+ *Each stage assumes the associated GFR level has been in effect for at least three months. ?Stages 1 to 5, with or without kidney disease, indicate chronic kidney disease. Notes: Determination of stages one and two (with eGFR >59mL/min/1.73 m2) requires estimation of kidney damage for at least three months as defined by structural or functional abnormalities of the kidney, manifested by either:Pathological abnormalities or Markers of kidney damage (including abnormalities in the composition of the blood or urine or abnormalities in imaging tests). Lab Interpretation Abnormal (test code = 33424-5) [facility] WITH [id number] 01:10:25 Test Item Value Reference Range Interpretation Comments WBC (test code = See_Comment [Automated 6690-2) message] The sy stem which generated this result transmitted reference range : 4.30 - 11.10 10*3/?L. The reference range was not used to interpret this result as normal/abnormal . RBC (test code = See_Comment [Automated 789-8) message] The sy stem which generated this result transmitted reference range : 3.93 - 5.25 10*6/?L. The reference range was not used to interpret this result as normal/abnormal . HGB (test code = 12.7 g/dL 11.6-15.0 718-7) HCT (test code = 39.4 % 35.7-45.2 4544-3) MCV (test code = 83.7 fL 80.6-95.5 787-2) MCH (test code = 27.0 pg 25.9-32.8 785-6) MCHC (test code = 32.2 g/dL 31.6-35.1 786-4) RDW-SD (test code = 51.8 fL 39.0-49.9 H 72076-9) RDW-CV (test code = 17.0 % 12.0-15.5 H 788-0) PLT (test code = See_Comment [Automated 777-3) message] The sy stem which generated this result transmitted reference range : 166 - 358 10*3/ ?L. The reference r aaron was not used to interpret this result as normal/abnormal . MPV (test code = 10.4 fL 9.5-12.9 60227-3) NRBC/100 WBC (test See_Comment [Automat ed code = 2510101680) message] The system which generated this result transmitted reference range : 0.0 - 10.0 /100 WBCs. The refer ence range was not u sed to interpret th is result as normal/abnormal . NRBC x10^3 (test code <0.01 See_Comment [Auto mated = 5976779006) message] The s ystem which generated this result transmitted reference range : 10*3/?L. The reference range was not used to interpret this result as normal/abnormal . GRAN MAT (NEUT) % 76.8 % (test code = 770-8) IMM GRAN % (test code 0.40 % = 7401626781) LYMPH % (test code = 14.5 % 736-9) MONO % (test code = 7.8 % 5905-5) EOS % (test code = 0.1 % 713-8) BASO % (test code = 0.4 % 706-2) GRAN MAT x10^3(ANC) 5.87 10*3/uL 1.88-7.09 (test code = 8851296472) IMM GRAN x10^3 (test 0.03 10*3/uL 0.00-0.06 code = 3539328136) LYMPH x10^3 (test code 1.11 10*3/uL 1.32-3.29 L = 731-0) MONO x10^3 (test code 0.60 10*3/uL 0.33-0.92 = 742-7) EOS x10^3 (test code = <0.03 0.03-0.39 L 711-2) BASO x10^3 (test code 0.03 10*3/uL 0.01-0.07 = 704-7) Lab Interpretation Abnormal (test code = 96027-7) [facility] WITH [id number] 14:51:56 Test Item Value Reference Range Interpretation Comments WBC (test code = See_Comment [Automated 1090-2) message] The sy stem which generated this result transmitted reference range : 4.30 - 11.10 10*3/?L. The reference range was not used to interpret this result as normal/abnormal . RBC (test code = See_Comment [Automated 687-8) message] The sy stem which generated this result transmitted reference range : 3.93 - 5.25 10*6/?L. The reference range was not used to interpret this result as normal/abnormal . HGB (test code = 12.4 g/dL 11.6-15.0 718-7) HCT (test code = 39.2 % 35.7-45.2 4544-3) MCV (test code = 86.7 fL 80.6-95.5 787-2) MCH (test code = 27.4 pg 25.9-32.8 785-6) MCHC (test code = 31.6 g/dL 31.6-35.1 786-4) RDW-SD (test code = 49.2 fL 39.0-49.9 83931-8) RDW-CV (test code = 15.7 % 12.0-15.5 H 788-0) PLT (test code = See_Comment [Automated 777-3) message] The sy stem which generated this result transmitted reference range : 166 - 358 10*3/ ?L. The reference r aaron was not used to interpret this result as normal/abnormal . MPV (test code = 9.6 fL 9.5-12.9 83033-7) NRBC/100 WBC (test See_Comment [Automat ed code = 6722356004) message] The system which generated this result transmitted reference range : 0.0 - 10.0 /100 WBCs. The refer ence range was not u sed to interpret th is result as normal/abnormal . NRBC x10^3 (test code <0.01 See_Comment [Auto mated = 6994071671) message] The s ystem which generated this result transmitted reference range : 10*3/?L. The reference range was not used to interpret this result as normal/abnormal . GRAN MAT (NEUT) % 71.9 % (test code = 770-8) IMM GRAN % (test code 0.50 % = 8927214324) LYMPH % (test code = 17.0 % 736-9) MONO % (test code = 8.0 % 5905-5) EOS % (test code = 1.7 % 713-8) BASO % (test code = 0.9 % 706-2) GRAN MAT x10^3(ANC) 4.14 10*3/uL 1.88-7.09 (test code = 3705899263) IMM GRAN x10^3 (test 0.03 10*3/uL 0.00-0.06 code = 6640007134) LYMPH x10^3 (test code 0.98 10*3/uL 1.32-3.29 L = 731-0) MONO x10^3 (test code 0.46 10*3/uL 0.33-0.92 = 742-7) EOS x10^3 (test code = 0.10 10*3/uL 0.03-0.39 711-2) BASO x10^3 (test code 0.05 10*3/uL 0.01-0.07 = 704-7) Lab Interpretation Abnormal (test code = 98544-6) [facility]"
[2023-05-18] MEDS ORDERED: METOPROLOL TARTRATE 5 MG/5 ML INJ IV ONE ×2 (11:26→12:21)
[2023-05-18 11:29] LABS: Hematocrit 39.3 % (36.0-45.0); Lymphocytes % 15.2 % (15.3-44.8); MCV 79.6 fL (80-100); MPV 7.9 fL (7.6-11.3); RBC Red Blood Cell Count 4.94 M/uL (3.86-4.86)
--- NOTE | 2023-05-18 11:54 | RAD REPORT ---
EXAM DESCRIPTION: Irist Single View05/18/2023 11:38 am CLINICAL HISTORY: CHEST PAIN COMPARISON: Chest Single View dated 03/31/2023; Abdomen 1 View (KUB) dated 11/22/2022; Chest Pa And La t (2 Views) dated 09/21/2022; CHEST PA AND LAT 2 VIEW dated 12/29/2007 TECHNIQUE: Portable AP view of the chest. FINDINGS: Developing central and bibasilar fluffy airspace opacities. Suspected small left pleural e ffusion. Central interstitial prominence. No pneumothorax or effusion. The cardiomediastinal contours are unremarkable. IMPRESSION: Centrally predominant findings as above with a small left pleural effusion, suggesting p ulmonary edema versus developing pneumonia.
[2023-05-18 11:57] LABS: Bilirubin Direct 0.2 mg/dL (0-0.2); Bilirubin Indirect, Calculated 0.4 mg/dL (0.2-0.8); Bilirubin Total 0.6 mg/dL (0.2-1.0); Magnesium 2.1 mg/dL (1.6-2.4); Thyroid Stimulating Hormone 2.08 uIU/mL (0.358-3.740); Troponin High Sensitivity 14.7 pg/mL (<58.9)
--- NOTE | 2023-05-18 12:33 | EDPHYS ---
Physician Documentation [facility] Name: Mikal Adams Age: 82 yrs Sex: Female : 1940 Arrival Date: 05/18/2023 Time: 11:00 Bed 8 Private MD: Tobi Jasso V ED Physician Osmin Hernandez HPI: 05/18 11:37 This 82 yrs old Female presents to ER via Wheelchair with complaints of Chest Pain. rt 11:37 Patient with history of atrial fibrillation presents to the ED with a fast heart rate rt for about 1 week now. The patient has had shortness of breath, chest pressure associated with it, denies overt pain. Of note, patient did have a chemical stress test yesterday which was unable to be completed due to the fast heart rate and states that the heart rate is been faster since then. She did take her metoprolol this morning. She denies other acute complaints at this time. Symptoms are moderate in severity, no other aggravating or alleviating factors.. Historical: - Allergies: 11:07 Sulfa (Sulfonamide Antibiotics); cm10 11:07 Levaquin; cm10 11:07 Eliquis; cm10 - PMHx: 11:07 AAA; Atrial fibrillation; Hypertensive disorder; cm10 - Immunization history:: Adult Immunizations up to date. - Social history:: Smoking status: Patient denies any tobacco usage or history of. - Family history:: not pertinent. ROS: 11:37 Constitutional: Negative for fever, chills, and weight loss, Abdomen/GI: Negative for rt abdominal pain, nausea, vomiting, diarrhea, and constipation, MS/Extremity: Negative for injury and deformity, Skin: Negative for injury, rash, and discoloration, Neuro: Negative for headache, weakness, numbness, tingling, and seizure, Psych: Negative for depression, anxiety, suicide ideation, homicidal ideation, and hallucinations. 11:37 Cardiovascular: Positive for chest pain, palpitations. 11:37 Respiratory: Positive for shortness of breath, Negative for cough. Exam: 11:37 Constitutional: This is a well developed, well nourished patient who is awake, alert, rt and in no acute distress. Head/Face: Normocephalic, atraumatic. Chest/axilla: Normal chest wall appearance and motion. Nontender with no deformity. No lesions are appreciated. Cardiovascular: Regular rate and rhythm with a normal S1 and S2. No gallops, murmurs, or rubs. Normal PMI, no JVD. No pulse deficits. Respiratory: Lungs have equal breath sounds bilaterally, clear to auscultation and percussion. No rales, rhonchi or wheezes noted. No increased work of breathing, no retractions or nasal flaring. Abdomen/GI: Soft, non-tender, with normal bowel sounds. No distension or tympany. No guarding or rebound. No evidence of tenderness throughout. Skin: Warm, dry with normal turgor. Normal color with no rashes, no lesions, and no evidence of cellulitis. MS/ Extremity: Pulses equal, no cyanosis. Neurovascular intact. Full, normal range of motion. Neuro: Awake and alert, GCS 15, oriented to person, place, time, and situation. Cranial nerves II-XII grossly intact. Motor strength 5/5 in all extremities. Sensory grossly intact. Cerebellar exam normal. Normal gait. Psych: Awake, alert, with orientation to person, place and time. Behavior, mood, and affect are within normal limits. 11:37 ECG was reviewed by the Attending Physician. Vital Signs: 11:05 BP 133 / 95; Pulse 122; Resp 16; Temp 98.4; Pulse Ox 95% on R/A; Weight 49.9 kg; Height cm10 5 ft. 1 in. ; Pain 0/10; 11:28 Pulse 130; Resp 30; ll1 11:53 Pulse 103; ll1 12:06 BP 133 / 103; Pulse 113; ll1 12:40 Pulse 111; Resp 26; Pulse Ox 96% ; ll1 12:54 BP 133 / 108; Pulse 108; Resp 27; ll1 13:13 Pulse 103; Resp 22; Pulse Ox 99% on R/A; ll1 14:52 BP 144 / 105; Pulse 109; Resp 24; Pulse Ox 97% on 3 lpm NC; os 11:05 Body Mass Index 20.78 (49.90 kg, 154.94 cm) cm10 11:05 Pain Scale: Adult cm10 MDM: 11:09 Patient medically screened. rt 16:59 Differential diagnosis: A-fib with RVR, electrolyte disturbance, thyrotoxicosis. Data rt reviewed: vital signs, nurses notes, lab test result(s), EKG, radiologic studies. Consideration of Admission/Observation Patient was admitted/placed on observation. Management of patient was discussed with the following: Learning Disabilities Specialist: Discussed with cardiology on-call, recommends sotalol be started and the patient be admitted to the hospital. Primary Care Provider: Agrees to meet patient, request clonidine be ordered as needed for hypertension. I considered the following discharge prescriptions or medication management in the emergency department Medications were administered in the Emergency Department. See MAR. Independent interpretation of the following test(s) in the Emergency Department X-Ray: My interpretation is Edema seen on my interpretation of the x-ray images. Test considered but Not performed: CT: Low suspicion for PE, CT angiogram not indicated. Care significantly affected by the following chronic conditions: Atrial fibrillation. Counseling: I had a detailed discussion with the patient and/or guardian regarding: the historical points, exam findings, and any diagnostic results supporting the discharge/admit diagnosis, lab results, radiology results, the need for further work-up and treatment in the hospital. Response to treatment: the patient's symptoms have markedly improved after treatment. 05/18 11:15 Order name: Basic Metabolic Panel; Complete Time: 12:00 1 05/18 11:15 Order name: CBC with Diff; Complete Time: 11:56 [facility] 05/18 11:15 Order name: Troponin HS; Complete Time: 12:00 [facility] 05/18 11:17 Order name: LFT's; Complete Time: 12:00 rt 05/18 11:17 Order name: Magnesium; Complete Time: 12:00 rt 05/18 11:17 Order name: NT PRO-BNP; Complete Time: 12:00 rt 05/18 11:17 Order name: TSH; Complete Time: 12:00 rt 05/18 16:37 Order name: Troponin High Sensitivity; Complete Time: 16:40 EDMA 05/18 11:15 Order name: XRAY Chest (1 view); Complete Time: 11:56 1 05/18 15:56 Order name: CT; Complete Time: 15:57 EDMA 05/18 11:15 Order name: EKG; Complete Time: 11:16 [facility] 05/18 13:38 Order name: CONS Physician Consult EDMA 05/18 11:15 Order name: Cardiac monitoring; Complete Time: 11:16 [facility] 05/18 11:15 Order name: EKG - Nurse/Tech; Complete Time: 11:16 05/18 11:15 Order name: IV Saline Lock; Complete Time: 11:15 05/18 11:15 Order name: Labs collected and sent; Complete Time: 11:15 05/18 11:15 Order name: O2 Per Protocol; Complete Time: 11:15 05/18 11:15 Order name: O2 Sat Monitoring; Complete Time: 11:15 ll EC:37 Rate is 123 beats/min. Rhythm is irregularly irregular, A fib with No ectopy. QRS rt interval is normal. QT interval is normal. No Q waves. T waves are Normal. No ST changes noted. Interpreted by me. Administered Medications: 11:28 Drug: Metoprolol IVP 5 mg Route: IVP; Site: right antecubital; ll1 12:07 Drug: Metoprolol IVP 5 mg Route: IVP; Site: right antecubital; ll1 12:40 Drug: Metoprolol IVP 5 mg Route: IVP; Site: right antecubital; ll1 12:55 Follow up: Response: No adverse reaction ll1 13:02 Drug: Levalbuterol Inhalation 0.63 mg Route: Inhalation; ll1 13:13 Follow up: Response: No adverse reaction ll1 13:13 Drug: Sotalol PO 80 mg Route: PO; ll1 14:56 Follow up: Response: No adverse reaction os 14:56 Drug: Levalbuterol Inhalation 0.63 mg Route: Inhalation; os Disposition: 16:59 Critical Care:. rt Disposition Summary: 05/18/23 12:32 Hospitalization Ordered Hospitalization Status: Observation rt Provider: Tobi Jasso rt Condition: Stable rt Problem: new rt Symptoms: have improved rt Bed/Room Type: Standard rt Location: Telemetry/MedSurg (observation)(05/18/23 16:04) kathy Room Assignment: 210(05/18/23 16:04) trini Diagnosis - Atrial fibrillation with rapid ventricular rate rt Forms: - Medication Reconciliation Form rt - SBAR form rt Critical care time excluding procedures: 16:59 Critical care time: Bedside Care: 30 minutes, Consultation: 10 minutes. Total time: 40 rt minutes Signatures: Dispatcher [employer] EDHalima Hinton RN RN jl7 Hossein Torrez, RN RN trini1 Brock Hernández, RN RN ll1 Osmin Hernandez MD MD rt Sophie Olivo, RN Denise Bartholomew RN RN cm10 Corrections: (The following items were deleted from the chart) 14:56 12:32 Telemetry/MedSurg (observation) rt jl7 14:56 12:32 rt jl7 16:04 14:56 [facility] ER HOLD jl7 ja1 16:04 14:56 ERHOLD- jl7 ja1
--- NOTE | 2023-05-18 12:33 | ER ---
Nurse's Notes [facility] Name: Mikal Adams Age: 82 yrs Sex: Female : 1940 Arrival Date: 05/18/2023 Time: 11:00 Bed 8 Private MD: Tobi Jasso V Diagnosis: Atrial fibrillation with rapid ventricular rate Presentation: 05/18 11:05 Chief complaint: Patient states: fast heart rate onset yesterday. Patient states that cm10 she had a stress test done yesterday and her heart rate has been fast since yesterday. Pt states that she took "some medicine from my homeopathic doctor for my blood pressure and for my heart". Pt denies any chest pain but reports shortness of breath. Coronavirus screen: Vaccine status: Patient reports being unvaccinated. Client denies travel out of the [place] in the last 14 days. At this time, the client does not indicate any symptoms associated with coronavirus-19. Ebola Screen: No symptoms or risks identified at this time. Initial Sepsis Screen: Does the patient meet any 2 criteria? No. Patient's initial sepsis screen is negative. Does the patient have a suspected source of infection? No. Patient's initial sepsis screen is negative. Risk Assessment: Do you want to hurt yourself or someone else? Patient reports no desire to harm self or others. Onset of symptoms was May 17, 2023. 11:05 Method Of Arrival: Wheelchair cm10 11:05 Acuity: PEEWEE 2 cm10 Historical: - Allergies: 11:07 Sulfa (Sulfonamide Antibiotics); cm10 11:07 Levaquin; cm10 11:07 Eliquis; cm10 - PMHx: 11:07 AAA; Atrial fibrillation; Hypertensive disorder; cm10 - Immunization history:: Adult Immunizations up to date. - Social history:: Smoking status: Patient denies any tobacco usage or history of. - Family history:: not pertinent. Screenin:15 [facility] ED Fall Risk Assessment (Adult) Score/Fall Risk Level 0 - 2 = Low Risk ll1 Oriented to surroundings, Maintained a safe environment, Educated pt \\T\\ family on fall prevention, incl call for assistance when getting out of bed, Hourly rounding (assess needs \\T\\ fall precautionary measures) done. Abuse screen: Denies threats or abuse. Nutritional screening: No deficits noted. Tuberculosis screening: No symptoms or risk factors identified. Assessment: 11:14 General: Appears uncomfortable, Behavior is calm, cooperative, appropriate for age. ll1 Pain: Complains of pain in chest Pain does not radiate. Pain began 2-3 days ago. Cardiovascular: Reports fatigue, palpitations, shortness of breath. 12:03 Reassessment: No changes from previously documented assessment. Patient and/or family ll1 updated on plan of care and expected duration. Pain level reassessed. Patient is alert, oriented x 3, equal unlabored respirations, skin warm/dry/pink. 12:40 Reassessment: No changes from previously documented assessment. Patient and/or family ll1 updated on plan of care and expected duration. Pain level reassessed. Patient is alert, oriented x 3, equal unlabored respirations, skin warm/dry/pink. 13:14 Reassessment: No changes from previously documented assessment. Patient and/or family ll1 updated on plan of care and expected duration. Pain level reassessed. Patient is alert, oriented x 3, equal unlabored respirations, skin warm/dry/pink. 14:31 Reassessment: No changes from previously documented assessment. Patient and/or family ll1 updated on plan of care and expected duration. Pain level reassessed. 14:56 Reassessment: No changes from previously documented assessment. SOB after walking to os restroom. Gait steady. Dr. Hernandez informed. Moved to exam room #8 via stretcher. Vital Signs: 11:05 BP 133 / 95; Pulse 122; Resp 16; Temp 98.4; Pulse Ox 95% on R/A; Weight 49.9 kg; Height cm10 5 ft. 1 in. ; Pain 0/10; 11:28 Pulse 130; Resp 30; ll1 11:53 Pulse 103; ll1 12:06 BP 133 / 103; Pulse 113; ll1 12:40 Pulse 111; Resp 26; Pulse Ox 96% ; ll1 12:54 BP 133 / 108; Pulse 108; Resp 27; ll1 13:13 Pulse 103; Resp 22; Pulse Ox 99% on R/A; ll1 14:52 BP 144 / 105; Pulse 109; Resp 24; Pulse Ox 97% on 3 lpm NC; os 11:05 Body Mass Index 20.78 (49.90 kg, 154.94 cm) cm10 11:05 Pain Scale: Adult cm10 ED Course: 11:02 Patient arrived in ED. am2 11:02 Tobi Jasso MD is Private Physician. am2 11:05 Osmin Hernandez MD is Attending Physician. rt 11:07 Triage completed. cm10 11:08 Arm band placed on Patient placed in an exam room, on a stretcher. cm10 11:14 Brock Hernández RN is Primary Nurse. ll1 11:14 Inserted saline lock: 22 gauge in right antecubital area, using aseptic technique. ll1 Blood collected. 11:40 XRAY Chest (1 view) In Process Unspecified. EDMS 12:31 Tobi Jasso MD is Hospitalizing Provider. rt Administered Medications: 11:28 Drug: Metoprolol IVP 5 mg Route: IVP; Site: right antecubital; ll1 12:07 Drug: Metoprolol IVP 5 mg Route: IVP; Site: right antecubital; ll1 12:40 Drug: Metoprolol IVP 5 mg Route: IVP; Site: right antecubital; ll1 12:55 Follow up: Response: No adverse reaction ll1 13:02 Drug: Levalbuterol Inhalation 0.63 mg Route: Inhalation; ll1 13:13 Follow up: Response: No adverse reaction ll1 13:13 Drug: Sotalol PO 80 mg Route: PO; ll1 14:56 Follow up: Response: No adverse reaction os 14:56 Drug: Levalbuterol Inhalation 0.63 mg Route: Inhalation; os Medication: 11:15 VIS not applicable for this client. ll1 Outcome: 12:32 Decision to Hospitalize by Provider. rt 18:01 Patient left the ED. nj1 Signatures: Dispatcher [employer] EDMS Faviola Lucio am2 Brock Hernández, RN RN ll1 Osmin Hernandez MD MD rt Jessica Cleary RN RN nj1 Sophie Olivo RN RN os Denise Dover RN RN cm10
[2023-05-18] MEDS ORDERED: LEVALBUTEROL 1.25 MG/3 ML NEB ONE (13:07)
[2023-05-18] MEDS ORDERED: SOTALOL HCL 80 MG TAB ONE (13:18)
[2023-05-18] MEDS ORDERED: LEVALBUTEROL 0.63 MG/3 ML NEB ONE ×2 (15:02→17:38)
[2023-05-18] MEDS ORDERED: cloNIDine HCL 0.1 MG TAB PO PRN (15:47)
--- NOTE | 2023-05-18 15:55 | RAD REPORT ---
EXAM DESCRIPTION: CT - Chest For Pe Angio - 05/18/2023 3:45 pm CLINICAL HISTORY: Chest pain. Afib with RVR COMPARISON: No comparisons TECHNIQUE: CT angiogram of the pulmonary arteries was performed with MIP. All CT scans are performed using dose optimization technique as appropriate and may include automated exposure control or mA/KV adjustment according to patient size. FINDINGS: No evidence of pulmonary thromboembolism. The ascending aorta is dilated to 4.9 cm compatible with aneurysm. Intraluminal contrast is not prese nt within the thoracic aorta due to phase of scanning. Linear opacities are present in both lung bases which may be atelectasis or pneumonia. Mild linear at electasis also seen posterior left upper lobe. Small left and small to moderate right pleural effusion. No concerning bony finding. IMPRESSION: No evidence of pulmonary thromboembolism. Ascending thoracic aortic aneurysm measuring 4.9 cm. Small to moderate pleural effusion with atelectasis in both lung bases.
[2023-05-18] MEDS ORDERED: ALBUTEROL 2.5 MG/3 ML NEB SOL NEB PRN (19:40)
[2023-05-18] MEDS ORDERED: METHYLPREDNISOLONE 40 MG INJ IV SCH (20:00)
[2023-05-18] MEDS ORDERED: PNEUMOCOCCAL VACCINE 0.5 ML IMVAC ONE (20:00)
--- NOTE | 2023-05-18 22:48 | P.HP ---
Certification for Inpatient Patient admitted to: Inpatient With expected LOS: >2 Midnights Practitioner: I am a practitioner with admitting privileges, knowledge of patient current condition, hospital course, and medical plan of care. Services: Services provided to patient in accordance with Admission requirements found in Title 42 Section 412.3 of the Code of Federal Regulations Patient History Date of Service: 05/18/23 Reason for admission: SHORT OF BREATH History of Present Illness: SHORT OF BREATH FOR A WEEK. DENIES CHEST PAIN. Allergies apixaban [From Eliquis] Adverse Reaction (Verified 05/18/23 15:12) Itching levofloxacin [From Levaquin] Adverse Reaction (Verified 05/18/23 15:12) Itching Sulfa (Sulfonamide Antibiotics) Adverse Reaction (Verified 05/18/23 15:12) Hives Home medications list reviewed: Yes Home Medications: Levalbuterol Tartrate [Xopenex Hfa] 45 mcg IN DAILY 05/18/23 Metoprolol Succinate [Toprol Xl] 50 mg PO DAILY 05/18/23 clonazePAM [Clonazepam] 1 mg PO BID 05/18/23 predniSONE [Deltasone] 10 mg PO DAILY 05/18/23 - Past Medical/Surgical History Has patient received pneumonia vaccine in the past: No -: AAA -: atrial fibrilation -: hypertension -: polyps removed from nares -: tubal ligation -: oral CA "cut out" - Social History Smoking Status: Never smoker Alcohol use: No Caffeine use: Yes Place of Residence: Home Review of Systems 10-point ROS is otherwise unremarkable General: Weakness Physical Examination - Vital Signs Temperature: 96.9 F Blood Pressure: 154/108 Pulse: 109 Respirations: 20 Pulse Ox (%): 98 - Physical Exam General: Oriented x3, Cachectic, Moderate distress HEENT: Atraumatic, PERRLA, Mucous membr. moist/pink, EOMI, Sclerae nonicteric Neck: Supple, 2+ carotid pulse no bruit, No LAD, Without JVD or thyroid abnormality Respiratory: Clear to auscultation bilaterally, Normal air movement Cardiovascular: Abnormal S1 S2 Gastrointestinal: Normal bowel sounds, No tenderness Musculoskeletal: No tenderness Integumentary: No rashes Neurological: Normal gait, Normal speech, Normal strength at 5/5 x4 extr, Normal tone, Normal affect Lymphatics: No axilla or inguinal lymphadenopathy - Studies Laboratory Data (last 24 hrs) 05/18/23 11:18: WBC 6.80, Hgb 12.4, Hct 39.3, Plt Count 297 05/18/23 11:18: Sodium 138, Potassium 4.0, BUN 17, Creatinine 0.66, Glucose 122 H, Magnesium 2.1, Total Bilirubin 0.6, AST 55 H, ALT 154 H, Alkaline Phosphatase 129 H Assessment and Plan - Problems (Diagnosis) (1) Rapid atrial fibrillation Current Visit: Yes Status: Acute Plan: CHANGE TO SOTALOL SHE DID NOT TOLERATE ELIQUIS WILL TRY XARELTO. SHE NEEDS TO PREVENT PE OR OTHER EMBOLIC EVENTS. SHE IS AWARE. (2) Acute congestive heart failure with left ventricular diastolic dysfunction Current Visit: Yes Status: Acute Plan: LASIX KCL LOSARTAN ECHO WITH DOPPLER. - Advance Directives Does patient have a Living Will: No Does patient have a Durable POA for Healthcare: No
[2023-05-18] MEDS: FUROSEMIDE 20 MG/ 2ML VIAL IV SCH (23:43)
[2023-05-18] MEDS: SOTALOL HCL 80 MG TAB PO SCH (23:43)
[2023-05-19] MEDS: LEVALBUTEROL 0.63 MG/3 ML NEB NEB SCH ×4 (02:05→20:04)
[2023-05-19] MEDS: SOTALOL HCL 80 MG TAB PO SCH ×2 (05:52→18:08)
[2023-05-19] MEDS: LOSARTAN POTASSIUM 50 MG TABLET PO SCH (08:04)
[2023-05-19] MEDS: POTASSIUM CL SA 10 MEQ TAB PO SCH (08:04)
[2023-05-19] MEDS: clonazePAM 1 MG TAB PO SCH ×2 (08:04→20:50)
[2023-05-19] MEDS: FUROSEMIDE 20 MG/ 2ML VIAL IV SCH ×2 (08:05→16:48)
[2023-05-19] MEDS ORDERED: METOPROLOL XL 50 MG TAB PO SCH (09:00)
[2023-05-19] MEDS ORDERED: FUROSEMIDE 20 MG/ 2ML VIAL IV SCH (09:00)
[2023-05-19 09:23] LABS: Hematocrit 37.7 % (36.0-45.0); Lymphocytes % 18.7 % (15.3-44.8); MCV 79.6 fL (80-100); MPV 8.5 fL (7.6-11.3); RBC Red Blood Cell Count 4.74 M/uL (3.86-4.86)
[2023-05-19 09:42] LABS: Albumin 2.8 g/dL (3.4-5.0); Bilirubin Total 0.6 mg/dL (0.2-1.0); Potassium 3.5 mEq/L (3.5-5.1); Protein, Total 6.2 g/dL (6.4-8.2)
--- NOTE | 2023-05-19 10:30 | P.PN ---
Subjective Date of Service: 05/19/23 Chief Complaint: SHORT OF BREATH Subjective: Improving SHE IS A LOT BETTER. SHE DENIES ANY PAIN. NO SE OF ANY MEDS YET. SHE COULD NOT TOLERATE ELIQUIS BEFORE. TODAY SHE WILL TRY XARELTO. Review of Systems 10-point ROS is otherwise unremarkable Physical Examination - Vital Signs Temperature: 97.8 F Blood Pressure: 131/89 Pulse: 106 Respirations: 18 Pulse Ox (%): 97 - Physical Exam General: Oriented x3, Cachectic, Mild distress HEENT: Atraumatic, PERRLA, EOMI Neck: Supple, JVD not distended Respiratory: Clear to auscultation bilaterally, Normal air movement Cardiovascular: Irregular heart rate/rhythm, Abnormal S1 S2 Gastrointestinal: Normal bowel sounds, No tenderness Musculoskeletal: No tenderness Integumentary: No rashes Neurological: Normal speech, Normal tone, Normal affect Lymphatics: No axilla or inguinal lymphadenopathy - Studies Laboratory Data (last 24 hrs) 05/18/23 11:18: WBC 6.80, Hgb 12.4, Hct 39.3, Plt Count 297 05/18/23 11:18: Sodium 138, Potassium 4.0, BUN 17, Creatinine 0.66, Glucose 122 H, Magnesium 2.1, Total Bilirubin 0.6, AST 55 H, ALT 154 H, Alkaline Phosphatase 129 H Medications List Reviewed: Yes Assessment And Plan - Current Problems (Diagnosis) (1) Rapid atrial fibrillation Current Visit: Yes Status: Acute Plan: CHANGE TO SOTALOL SHE DID NOT TOLERATE ELIQUIS WILL TRY XARELTO. SHE NEEDS TO PREVENT PE OR OTHER EMBOLIC EVENTS. SHE IS AWARE. SOTALOL DAY 2. SHE NEEDS TO BE HERE FOR 48 HOURS AFTER STARTING IT LAST NIGHT. NO SE YET. TRY XARELTO TODAY. (2) Acute congestive heart failure with left ventricular diastolic dysfunction Current Visit: Yes Status: Acute Plan: LASIX KCL LOSARTAN ECHO WITH DOPPLER. LOT BETTER CLNICALLY. CONT MEDS. IT IS UNCLEAR IF SHE HAS COPD SHE DID LIKE XOPENEX SHE SMOKED VERY LITTLE WHEN SHE WAS YOUNG.
[2023-05-19 18:39] LABS: Specific Gravity 1.011 (1.005-1.030); Urine Bacteria None Seen /HPF (<20); Urine Bilirubin NEGATIVE (Negative); Urine Blood Negative (Negative); Urine Clarity Clear (Clear); Urine Color Light-Yellow (Yellow); Urine Glucose NEGATIVE (Negative); Urine Protein NEGATIVE (Negative); Urine RBC None Seen /HPF (None Seen); Urine Urobilinogen Normal (Normal)
[2023-05-20] MEDS: LEVALBUTEROL 0.63 MG/3 ML NEB NEB SCH ×4 (01:05→19:50)
[2023-05-20] MEDS: SOTALOL HCL 80 MG TAB PO SCH ×2 (05:28→17:12)
[2023-05-20] MEDS: FUROSEMIDE 20 MG/ 2ML VIAL IV SCH ×2 (09:00→17:12)
[2023-05-20] MEDS: clonazePAM 1 MG TAB PO SCH ×2 (10:27→20:34)
[2023-05-20] MEDS: RIVAROXABAN 10 MG TABLET PO SCH (10:27)
[2023-05-20] MEDS: LOSARTAN POTASSIUM 50 MG TABLET PO SCH (10:27)
[2023-05-20] MEDS: POTASSIUM CL SA 10 MEQ TAB PO SCH (10:28)
--- NOTE | 2023-05-20 13:46 | P.PN ---
Subjective Date of Service: 05/20/23 Chief Complaint: SHORT OF BREATH Subjective: No new changes SHE IS A LOT BETTER. SHE DENIES ANY PAIN. NO SE OF ANY MEDS YET. SHE COULD NOT TOLERATE ELIQUIS BEFORE. TODAY SHE WILL TRY XARELTO. STILL COMPLAINS OF DYSPNEA. DENIES PAIN WILL NEED NEBS AND MEDS. WILL NEED ONEMORE DAY HERE FOR IT. Review of Systems 10-point ROS is otherwise unremarkable General: Weakness Physical Examination - Vital Signs Temperature: 97.1 F Blood Pressure: 120/86 Pulse: 91 Respirations: 16 Pulse Ox (%): 96 - Physical Exam General: Oriented x3, Cachectic, Mild distress, Moderate distress HEENT: Atraumatic, PERRLA, EOMI Neck: Supple, JVD not distended Respiratory: Clear to auscultation bilaterally, Normal air movement Cardiovascular: Regular rate/rhythm, Normal S1 S2 Gastrointestinal: Normal bowel sounds, No tenderness Musculoskeletal: No tenderness Integumentary: No rashes Neurological: Normal speech, Normal tone, Normal affect Lymphatics: No axilla or inguinal lymphadenopathy - Studies Medications List Reviewed: Yes Assessment And Plan - Current Problems (Diagnosis) (1) Rapid atrial fibrillation Current Visit: Yes Status: Acute Plan: CHANGE TO SOTALOL SHE DID NOT TOLERATE ELIQUIS WILL TRY XARELTO. SHE NEEDS TO PREVENT PE OR OTHER EMBOLIC EVENTS. SHE IS AWARE. SOTALOL DAY 2. SHE NEEDS TO BE HERE FOR 48 HOURS AFTER STARTING IT LAST NIGHT. NO SE YET. TRY XARELTO TODAY. (2) Acute congestive heart failure with left ventricular diastolic dysfunction Current Visit: Yes Status: Acute Plan: LASIX KCL LOSARTAN ECHO WITH DOPPLER. LOT BETTER CLNICALLY. CONT MEDS. IT IS UNCLEAR IF SHE HAS COPD SHE DID LIKE XOPENEX SHE SMOKED VERY LITTLE WHEN SHE WAS YOUNG. (3) COPD (chronic obstructive pulmonary disease) Current Visit: Yes Status: Chronic Plan: NON SMOKER DID WELL ON XOPENEX. IN AM SW WILL NEED TO WORK ON NEBULIZER AND MEDS. TRIAL OF STEROIDS.
--- NOTE | 2023-05-20 14:26 | EKG ---
Test Date: 2023-05-18 Test Time: 11:05:51 Assistant Director Of Residence Life: CECI MEASUREMENT RESULTS: Intervals: Rate: 123 VA: QRSD: 84 QT: 322 QTc: 460 [place]: P: VA: QRS: 16 T: 25 INTERPRETIVE STATEMENTS: Atrial fibrillation with rapid ventricular response Abnormal ECG Compared to ECG 03/31/2023 10:28:47 Sinus rhythm no longer present Sinus arrhythmia no longer present Ventricular premature complex(es) no longer present ST (T wave) deviation no longer present Electronically Signed On 05-20-23 14:23:58 CDT by Tobin Frazier
--- NOTE | 2023-05-20 15:13 | RAD REPORT ---
EXAM DESCRIPTION: CT - Abdomen W Contrast CLINICAL HISTORY: cholestasis Abdominal pain COMPARISON: Chest For Pe Angio dated 05/18/[address] scans are performed using dose optimization technique as appropriate and may includ e automated exposure control or mA/KV adjustment according to patient size. FINDINGS: Moderate bilateral pleural effusions with atelectasis in both lung bases. 4.4 cm ascendin g aortic aneurysm. Heterogenous appearance of the liver parenchyma. No intra or extrahepatic biliary tree dilatation. Th e spleen, pancreas, adrenal glands and kidneys are within normal limits. No free fluid, bowel obstruction or free air. Moderate stool is present throughout the colon. No significant adenopathy in the abdomen. No significant bony finding. IMPRESSION: Heterogenous appearance of the liver parenchyma. No solid liver mass or intra/extrahepat ic biliary dilatation.
[2023-05-20] MEDS: METHYLPREDNISOLONE 40 MG INJ IV SCH ×2 (17:12→23:37)
--- NOTE | 2023-05-20 19:51 | CON ---
Date of Consultation: 05/20/2023 Reason For Consultation: Atrial fibrillation. History Of Present Illness: This is an 82-year-old female with past medical history of atrial fibril lation, hypertension, AAA, presented to the emergency room with palpitation and shortness of breath o n exertion and lower extremity edema. Denies having any chest pain. No nausea, vomiting, diarrhea. No abdominal pain. She was found to be in acute on chronic heart failure exacerbation as well as at rial fibrillation with rapid ventricular response. Started on sotalol by Dr. Jasso and Екатерина. Past Medical History: As outlined above in HPI. Medications: Refer to reconciliation sheet for detailed list. Allergies: LEVOFLOXACIN, SULFA, AND APIXABAN. Family History: No premature coronary artery disease or cancer. Social History: Does not smoke or drink. Does not use any drugs. Review of Systems: All systems reviewed and they were negative except what mentioned in HPI. Physical Examination: Vital Signs: Reviewed. Head and Neck: Pupils are equal, reactive to light. Intact eye movements. No JVD. No cervical lym phadenopathy. Neck is supple. Thyroid is not enlarged. Lungs: Clear to auscultation bilaterally. No rhonchi, wheezing, or crackles. No accessory muscle u se. Heart: Irregularly irregular. No extra sounds. Abdomen: Soft, nontender. Bowel sounds positive. No organomegaly. No masses or hernia. No rigidi ty or rebound. Extremities: No edema, clubbing, or cyanosis. Intact pulses. Skin: No rash. Neurologic: Alert, awake, oriented x3. No acute focal deficits appreciated. Investigations: Troponins x3 are negative. NT-proBNP is 2649. BUN is 19, creatinine 0.55, hemoglob in is 11.7. 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 Assessment And Recommendations: 1.Atrial fibrillation with rapid ventricular response. Agree with sotalol at 80 mg twice a day. Mo nitor the EKG after the third dose to evaluate QTc interval. If it is normal, then continue the curr ent dose and agree with Xarelto. 2.Acute on chronic diastolic heart failure exacerbation. Agree with Lasix and potassium supplements . Re-evaluate BUN, creatinine, and electrolytes tomorrow. 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 Plan for very close monitoring over the next [address] scan. If it does increase in size, then we will consult CT Surgery for repair . /KARUNA Voice ID: [id number] Report ID: [id number]
[2023-05-21] MEDS: LEVALBUTEROL 0.63 MG/3 ML NEB NEB SCH ×2 (01:20→08:00)
[2023-05-21] MEDS: SOTALOL HCL 80 MG TAB PO SCH (06:02)
[2023-05-21] MEDS: METHYLPREDNISOLONE 40 MG INJ IV SCH (06:02)
[2023-05-21 06:07] VITALS: BMI 19.0
[2023-05-21] MEDS: clonazePAM 1 MG TAB PO SCH (08:21)
[2023-05-21] MEDS: POTASSIUM CL SA 10 MEQ TAB PO SCH (08:21)
[2023-05-21] MEDS: LOSARTAN POTASSIUM 50 MG TABLET PO SCH (08:22)
[2023-05-21] MEDS: RIVAROXABAN 10 MG TABLET PO SCH (08:22)
[2023-05-21 08:23] VITALS: BP 132/90; TEMP 97
[2023-05-21] MEDS: FUROSEMIDE 20 MG/ 2ML VIAL IV SCH (08:24)
[2023-05-21 09:58] VITALS: O2SAT 96
--- NOTE | 2023-05-21 20:43 | P.DS ---
Admission Date: 05/20/23 Discharge Date: 05/21/23 Disposition: ROUTINE DISCHARGE Reason for Admission: SHORT OF BREATH - Problems (1) Rapid atrial fibrillation Status: Acute (2) Acute congestive heart failure with left ventricular diastolic dysfunction Status: Acute (3) COPD (chronic obstructive pulmonary disease) Status: Chronic Brief History of Present Illness: SHORT OF BREATH FOR A WEEK. DENIES CHEST PAIN. Hospital Course: MS. PEREZ COMES WITH DYSPNEA AND A FIB. SHE IMPROVES SOME ON NEBS, SOTALOL, LOW DOSE LASIX AND IS STABLE TO GO HOME. SHE CAN'T TOLERATE ALBUTEROL. I ORDERED XOPENEX . SHE ALSO GOES TO [facility] MD Vital Signs/Physical Exam: Temp Pulse Resp BP Pulse Ox 97.0 F 101 H 16 132/90 96 05/21/23 08:00 05/21/23 08:00 05/21/23 08:00 05/21/23 08:00 05/21/23 08:00 Laboratory Data at Discharge: WBC 5.50 thou/uL (4.3-10.9) 05/19/23 08:09 Hgb 11.7 g/dL (12.0-15.0) L 05/19/23 08:09 Hct 37.7 % (36.0-45.0) 05/19/23 08:09 Plt Count 269 thou/uL (152-406) 05/19/23 08:09 Sodium 140 mEq/L (136-145) 05/19/23 08:09 Potassium 3.5 mEq/L (3.5-5.1) 05/19/23 08:09 BUN 19 mg/dL (7-18) H 05/19/23 08:09 Creatinine 0.55 mg/dL (0.55-1.02) 05/19/23 08:09 Glucose 107 mg/dL (74-106) H 05/19/23 08:09 Magnesium 2.1 mg/dL (1.6-2.4) 05/18/23 11:18 Total Bilirubin 0.6 mg/dL (0.2-1.0) 05/19/23 08:09 AST 103 U/L (15-37) H 05/19/23 08:09 ALT 202 U/L (13-56) H 05/19/23 08:09 Alkaline Phosphatase 160 U/L (45-117) H D 05/19/23 08:09 Home Medications: Levalbuterol Tartrate [Xopenex Hfa] 45 mcg IN DAILY 05/18/23 Metoprolol Succinate [Toprol Xl] 50 mg PO DAILY 05/18/23 clonazePAM [Clonazepam] 1 mg PO BID 05/18/23 predniSONE [Deltasone] 10 mg PO DAILY 05/18/23 Physician Discharge Instructions: PROBLEM: Atrial Fibrillation Congestive Heart Failure GOAL: Clear understanding of disease process INSTRUCTIONS: Stop taking metoprolol at home New Rx for following medications have been sent to [facility] in Sotalol 80mg by mouth twice daily Xarelto 15mg by mouth once daily Losartan 25mg by mouth once daily Furosemide 20mg by mouth once daily Potassium Chloride 10meq by mouth once daily Xoepenex nebulizer treatments as needed Diet: Heart Healthy, Low Sodium Activity: As Tolerated DME DME: Date Ordered: Name of Company: [employer] Services Needed: Name of Company: Date or Referral: IMMUNIZATION Influenza Vaccine Indicated: Influenza Vaccine Given: Date Given: Pneumonia Vaccine Indicated: Yes Pneumonia Vaccine Given: Date Given: Followup: Tobi Jasso MD [Primary Care Provider] - 1 Week
== END 2023-05-21 11:00 | disposition home or self-care (01) | DRG 291 ==
LOC: ER 11:00 → ERHOLD 13:36 → 2ND 17:52 → OBSVTOIN 05-20 13:41
PROVIDERS: ADMIT Internal Medicine; ATTEND Internal Medicine
DX: I11.0 Hypertensive heart disease with heart failure (principal); I50.31 Acute diastolic (congestive) heart failure; R64 Cachexia; Z68.1 Body mass index [BMI] 19.9 or less, adult; I48.91 Unspecified atrial fibrillation; J44.9 Chronic obstructive pulmonary disease, unspecified; I71.20 Thoracic aortic aneurysm, without rupture, unspecified; Z88.2 Allergy status to sulfonamides; Z88.3 Allergy status to other anti-infective agents; Z88.8 Allergy status to other drugs, medicaments and biological substances
CPT/HCPCS: 36415; 71045; 71275; 74160; 80048; 80053; 80076; 81001; 83735; 83880; 84443; 84484; 85025; 93005; 94640; 94760; 96374; 99285; G0378; J1940; J2920; J7613; J7614; Q9967

== ENCOUNTER 2023-07-06 13:52 | Emergency (ER) | payer OTHER, MEDICARE ==
--- OUTSIDE RECORDS SUMMARY | 2023-07-06 14:00 | XMS REPORT | Continuity of Care Document ---
:1940 Author Organization [facility] t Address [address] [place] [address] [place] [id number] Care Team Providers Name Role Phone MARIA TERESA CORTEZ Primary Care Physician Unavailable Tobin Frazier Attending Clinician Unavailable Emil Dutton Attending Clinician EMIL DUTTON Attending Clinician Unavailable Shannan Bui Attending Clinician SHANNAN BUI Attending Clinician Unavailable Tyrone Peace Attending Clinician TYRONE PEACE Attending Clinician Unavailable Doctor Unassigned, [place] Attending Clinician Unavailable Erick Cooley RN Attending Clinician Unavailable Mike Car DO Attending Clinician JOSE ALFREDO BLANC Attending Clinician Ewa breanna Kendrick MD, Kwabena Guzman Attending Clinician [phone] [place] SERVIN, Mounika Arguello Attending Clinician [phone] [place] ODONNELL, Jose Alfredo Nash Attending Clinician Pob, [facility] Main Attending Clinician Unavailable Cheryl Phelps MD Attending Clinician CHERYL PHELPS Attending Clinician Unavailable Gurinder Rebolledo MD Attending Clinician GURINDER REBOLLEDO Attending Clinician Unavailable Lisbeth Colby Attending Clinician EMIL SCHUSTER Attending Clinician Unavailable Soledad Warren Attending Clinician Cyrus Mccain Attending Clinician Lory Patel Attending Clinician [phone] Maria Teresa Cortez Attending Clinician Barry Gates Attending Clinician Lynnette Padilla Attending Clinician Doris Reis Attending Clinician CIvett Attending Clinician Unavailable Mabel Santiago Attending Clinician Tobin Frazier Admitting Clinician Unavailable Tobi Jasso V Admitting Clinician Unavailable Emil Dutton Admitting Clinician EMIL DUTTON Admitting Clinician Unavailable Shannan Bui Admitting Clinician SHANNAN BUI Admitting Clinician Unavailable MOUNIKA GIORDANO Admitting Clinician Unavailable [place] SERVIN, Mounika Arguello Admitting Clinician [phone] Obi Admitting Clinician Unavailable Payers Payer Name Policy Type Policy Number Effective Date Expiration Date Jazmyne harris MEDICARE B-[place]: [id number] 2003 [employer] 00:00:00 [facility] [id number] INSURANCE COMPANY - PLAN G (MEDICARE SUPPLEMENT) Problems Condition Condition Condition Status Onset Resolution Last Treating Co mments Source Name Details Category Date Date Treatment Clinician Date R91.1=LUZ ELENA R91.1=MAMADOU Diagnosis Active 2023-02-01 Memoria TARY ITARY 1 14:41:00 l PULMONARY PULMONARY 00:00: Jacque amy NODULE NODULE 00 Active 11/26/2022 [facility] R06.02 R06.02 Diagnosis Active 2021-112022-10-04 M emoria Active 12-04 15:09:00 l 10/04/2022 00:00: Chepe torres 00 [facility] BILATERAL BILATERAL Diagnosis Active 2021-112022-09-25 Memoria PNEUMONIA PNEUMONIA 0-14 21:44:00 l Active 00:00: Karel 09/08/2022 00 [facility] PNUEMONIA PNUEMONIA Diagnosis Active 2021-112022-09-08 Memoria Active 014 11:17:00 l 09/08/2022 00:00: Chepe torres 00 [facility] ANKLE ANKLE Diagnosis Active 2021-112022-12-29 [facility] vaibhava SWELLING SWELLING 0-08 09:08:00 l Active 00:00: Karel 09/02/[address] [place] [address] Karel Atrial Atrial Disease Active Univers fibrillati fibrillati 6-11 it y of on, on, 00:00: [place] unspecifie unspecifie 00 Me dical d type d type Branch Chest Chest Disease Active Univers pain, pain, 6-10 ity of unspecif[place] type d type 00 Medical [place] SOB SOB Diagnosis Active 2020-01-26 Mem oria Active 01-25 12:37:00 l 01/26/2020 00:00: Chepe torres 00 [facility] DX: DX: Diagnosis Active 2020-02-16 Mem oria R06.02=DOMINIC R06.02=DOMINIC 2 07:57:00 l RTNESS OF RTNESS OF 00:00: Jacque amy BREATH BREATH 00 Active 01/22/2020 [facility] CHEST PAIN CHEST Diagnosis Active 2018-112019-08-28 Memoria /SOB PAIN /SOB 0-03 19:43:00 l Active 00:00: Akrel 08/28/[address] [place] [address] Karel J45.909 - J45.909 - Diagnosis Active 2018-06-27 Memoria UNSPECIFIE UNSPECIFIE 05-22 16:16:00 l D ASTHMA, D ASTHMA, 00:01: Jacque reyes UNCOMPLICA UNCOMPLICA 00 Active 05/22/2018 [facility] SHORTNESS Diagnosis Active 2018-06-03 Memoria OF BREATH, SHORTNESS 05-21 09:16:00 l CHEST PAIN OF BREATH, 00:00: He rmann CHEST PAIN 00 Active 05/21/2018 [facility] DIFFICULTY DIFFICULT Diagnosis Active 2018-05-21 Memoria BREATHING Y 05-21 16:06:00 l BREATHING 00:00: Karel Active 00 05/21/[address] [facility] [address] HOUSE - DR. HOUSE Diagnosis Active 2018-02-13 Memoria CHEST PAIN - CHEST 02-13 18:15:00 l PAIN 00:00: Karel Active 00 02/13/2018 [facility] UNK UNK Diagnosis Active 2016-03-30 Mem oria Active 03-29 09:03:00 l 03/29/2016 00:00: Chepe torres [address] I71.2 I71.2 Diagnosis Active 2014-112015-11-06 Mem oria THORACIC THORACIC 01-03 08:13:00 l AORTIC AORTIC 00:00: [place] ANEURYSM, ANEURYSM, 00 WITHOUT WITHOUT Active 11/02/2015 [facility] 275.2 - 275.2 - Diagnosis Active 2015-07-11 Memoria DIS DIS 06-10 15:51:00 l MAGNESIUM MAGNESIUM 00:01: Jacque Richter Active 00 06/10/2015 [facility] 441.2 441.2 Diagnosis Active 2015-07-20 Mem oria ANEURYSM ANEURYSM 06-10 15:26:00 l OF OF 00:00: Karel ASCENDING ASCENDING 00 AORTA / AORTA / 275 275 Active 5 [facility] Cervicalgi Cervicalg Problem 2019-07-09 Memoria a ia 11:19:44 l 07/09/2019 Chepe torres [facility] Pain in Pain in Problem 2019-07-09 Me moria right right 11:19:44 l ankle ankle Karel 07/09/2019 [facility] 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:19:44 l myelopathy myelopathy He rmann or or radiculopa radiculopa thy, thy, cervical cervical region region 07/09/2019 [facility] Unspecifie Unspecifi Problem 2018-05-23 Memoria d asthma, ed asthma, 15:38:17 l uncomplica uncomplica He jhon hernandez 05/23/2018 [facility] Personal Personal Problem 2018-05-23 Memoria history of history of 15:38:17 l transient transient Herm amy ischemic ischemic attack attack (TIA), and (TIA), and cerebral cerebral infarction infarction without without residual residual deficits deficits 05/23/2018 [facility] Personal Personal Problem 2018-05-23 Memoria history of history of 15:38:17 l nicotine nicotine Chepe n dependence dependence 8 [facility] Pneumonia Diagnosis 2022-09-16 Memoria (disorder) Pneumonia 23:35:54 l (disorder) Chepe n Diagnosis 09/16/2022 [facility] Asthma Asthma Problem Resolve 2022-09-04 Mem oria (disorder) (disorder) d 22:57:50 l Resolved [place] Problem 09/04/2022 [facility] 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 (disorder) infarction He rmann (disorder) Resolved Problem 09/04/2022 [facility] Malignant Malignant Problem Resolve 2022-09-04 Memoria neoplasm neoplasm d 22:57:50 l of skin of skin [place] (disorder) (disorder) Resolved Problem 09/04/2022 [facility] Depression Depressio Problem Resolve 2022-09-04 Memoria - motion n - motion d 22:57:50 l (qualifier (qualifier He rmann value) value) Resolved Problem 09/04/2022 [facility], [facility] Dyspnea Dyspnea Problem Resolve 2022-09-04 M emoria (finding) (finding) d 22:57:50 l Resolved [place] Problem 09/04/2022 [facility], [facility] SHORTNESS SHORTNESS Diagnosis Active 2022-10-04 Memoria OF BREATH OF BREATH 15:09:00 l Active Chepe torres [facility] INCISIONAL INCISIONA Diagnosis Active 2023-02-01 Memoria HERNIA L HERNIA 14:41:00 l WITHOUT WITHOUT [place] OBSTRUCTIO OBSTRUCTIO N OR N OR Active [facility] PNEUMONIA, PNEUMONIA Diagnosis Active 2022-09-25 Memoria UNSPECIFIE , 21:44:00 l D ORGANISM UNSPECIFIE He jhon Epstein ORGANISM Active [facility] SINGLE SINGLE Diagnosis Active 2022-09-08 Me moria LIVEBORN LIVEBORN 17:40:00 l INFANT, , Karel DELIVERED DELIVERED BY TERRY BY TERRY Active [facility] THORACIC THORACIC Diagnosis Active 2015-11-06 Memoria AORTIC AORTIC 08:13:00 l ANEURYSM, ANEURYSM, Herm amy WITHOUT WITHOUT RUPTUR RUPTUR Active [facility] ABNORMAL ABNORMAL Diagnosis Active 2016-03-30 Memoria RESULT OF RESULT OF 09:03:00 l CARDIOVASC CARDIOVASC He jhon ALEXANDER FUNCTI FUNCTI Active [facility] I71.9 / I71.9 / Diagnosis Active 2016-04-11 Memoria R53.83 R53.83 11:37:00 l Active [facility] CHEST CHEST Diagnosis Active 2018-06-03 Mem oria PAIN, PAIN, 09:16:00 l UNSPECIFIE UNSPECIFIE He jhon D D Active [facility] History of Past Illness Condition Condition Condition Status Onset Resolution Last Treating Co mments Source Name Details Category Date Date Treatment Clinician Date Other Other Problem 2021-112022-09-04 2022-09-04 M emoria specified specified 0-08 22:57:50 22:57:50 l soft soft 22:04: [place] tissue tissue 00 disorders disorders 09/02/2022 09/04/2022 [facility] Weakness Weakness Problem 2019-2020-01-28 2020-01-28 Memoria 01/26/2020 3- 23:09:35 23:09:35 l 01/28/2020 18:00: Chepe torres [address] Chest Chest Problem 2018-2019-08-30 2019-08-30 M emoria pain, pain, 0-03 22:17:22 22:17:22 l unspecifie unspecifie 17:00: Bert epstein d 00 08/28/2019 08/30/2019 [facility] Sprain of Sprain Problem 2018-112019-08-30 2019-08-30 Memoria unspecifie of 0-03 22:17:22 22:17:22 l d ligament unspecifie 17:00: He jhon of d ligament 00 unspecifie of d ankle, unspecifie initial d ankle, encounter initial encounter 08/28/2019 08/30/2019 [facility] Pain in Problem 2018-2019-07-09 2019-07-09 Memoria right right 12-24 11:19:44 11:19:44 l shoulder shoulder 05:30: Chepe n 12/24/2018 26 07/09/2019 [facility] [place] Diarrhea, Diarrhea, Problem 2017-2018-05-23 2018-05-23 Memoria unspecifie unspecifie 02-14 15:38:17 15:38:17 l d d 05:00: Karel 02/14/2018 00 05/23/2018 [facility] Allergies, Adverse Reactions, Alerts Allergy Allergy Status Severity Reaction(s) Onset Inactive Treating Comm ents Source Name Type Date Date Clinician LEVOFLOX DRUG Active Other-Cmnt Univ ers ACIN INGREDI 05-04 ity of 00:00: [place] 00 Medical Branch Levoflox Propensi Active Other - See U nivers acin ty to comments 05-04 ity of adverse 00:00: [place] reaction 00 Medical s Branch levoflox DA Active SV leg swelling HC A acin 4-27 Clear 00:00: Rtaore 00 [facility] levoflox DA Active SV [facility] acin 9 [place] 00:00: Orthope 00 dic [facility]osp[facility] levoflox DA Active SV MUSCLE [facility] acin TWITCHING 917 Clear 00:00: Traore 00 [facility] Sulfa DA Active MD [facility] (Sulfona 3-19 [place] mide 00:00: Orthope Antibiot 00 dic ics) Hospita l iodine DA Active MD [facility] 3-19 [place] 00:00: Orthope 00 dic Hospita l Sulfa DA Active MD NAUSEA [facility] (Sulfona 3-19 Clear mide 00:00: [place] Antibiot 00 [facility]) [facility] iodine DA Active MD tremors [facility] 3-19 Clear 00:00: Traore 00 [facility] NO KNOWN Drug Active Univers ALLERGIE Class ity of S [facility] Augmenti Augmenti Active Memori a n n l [place] Dust Dust Active Memoria l Karel iodine iodine Active Memoria l [place] Levaquin Levaquin Active Memori a l Karel sulfa sulfa Active Memoria drugs drugs l Karel albutero albutero Active Memori a l l l [place] Social History Social Habit Start Date Stop Date Quantity Comments Source Exposure to 2022-04-25 2022-05-05 Unable to assess Univers ity of SARS-CoV-2 00:00:00 02:23:00 [facility] (event) [place] Tobacco use and 2020-07-19 2020-07-19 Smokeless tobacco Un iversity of exposure 00:00:00 00:00:00 non-user [facility] Sex Ass[birth year] Universit y of 00:00:00 00:00:00 [facility] Smoking Status Start Date Stop Date Source Unknown if ever smoked [facility] Tobacco smoking status 2022-09-02 22:31:22 2022-09-02 22:31:22 M emorial Karel Never smoked tobacco [facility] Medications Ordered Filled Start Stop Current Ordering Indication Dosage Frequency Signature Comments Components Source Medication Medication Date Date Medication? Clinician (SIG) Name Name predniSONE 2021-11 Yes See Memoria 10 mg oral 0-20 Special l tablet 17:46: Instructio Tiarra nn 00 ns, PO, Daily, 4 day regimen: Day 1 - 40 mg (4 tabs) , Day 2 - 30 mg (3 tabs) , Day 3 - 20 mg (2 tabs) , Day 4 - 10 mg (1 tab), # 10 tab, 0 Refill(s), Pharmacy: [id number], 152.4, cm, 09/09/22 18:10:00 CDT, Heigh... tramadol 50 2021-11 Yes 50 mg = 1 M emoria mg oral 0-20 tab, PO, l tablet 17:46: Q6H, PRN Karel 00 Pain, X 5 day, # 15 tab, 0 Refill(s), Pharmacy: [id number], 152.4, cm, 09/09/22 18:10:00 CDT, Height, 44.093, kg, 09/09/22 18:10:00 CDT, Weight Xopenex HFA 2021-11 Yes 45 Memori a 45 mcg/inh 0-20 microgram l inhalation 17:45: = 1 puff, He rmann aerosol 00 INHALATION with , Q6H, PRN adapter Cough, wheezing, shortness of breath, # 1 ea, 0 Refill(s), Pharmacy: [id number], 152.4, cm, 09/09/22 18:10:00 CDT, Height, 44.093, kg, 09/09/22 18:10:00 CDT, Weight Vitamin D3 2021-11 Yes 25 Memoria 0-15 microgram, l 01:20: PO, Daily, [place] 00 0 Refill(s) CoQ10 2021-11 Yes 400 mg, Memoria 0-15 PO, Daily, l 01:19: 0 [place] 00 Refill(s) buPROPion 2021-11 Yes 150 mg = 1 Me moria 150 mg/24 0-15 tab, PO, l hours (XL) 01:12: Q24H, 0 Herm amy oral 00 Refill(s) tablet, extended release amoxicillin 2021-11 Yes 1 tab, PO, Memoria -clavulanat 0-15 Daily, # l e 875 01:08: 20 tab, 0 [place] mg-125 mg 00 Refill(s) oral tablet azithromyci 2021-11 No Notes: Shaquille raymond n 0-08 Take 1 l 22:06: hour [place] 00 before or 2 hours after meals. (Same As: Zithromax) azithromyci 2021-11 Yes See Memori a n 250 mg 0-08 Instructio l oral tablet 22:04: ns, Take 2 [place] 00 tablets by mouth the first day then 1 tablet by mouth daily on days 2-5., X 5 day, # 6 tab, 0 Refill(s), Pharmacy: [facility] #[id number], 157.48, cm, 09/02/22 12:09:00 CDT, Height, 45.455, kg, 09/02/22 12:09:00 CDT, Weight Lasix 2021-11 No Notes: Memoria 0-08 (Same as: l 22:03: Lasix) MEDICATION WASTE Product Size: 40 mg Product Wasted: ___ mg Saline 2021-11 No Notes: Memoria Flush 0.9% 0-08 Same as: l 17:10: BD Posiflush Sterile clonazePAM 0 Yes 1mg 1 mg, Univer s (KLONOPIN) 6-11 Oral, TID, ity of tablet 1 mg 19:00: First dose [place] 00 on [facility] 05/06/22 at Branch 1400, Until Discontinu ed, Routine apixaban 2021- Yes 2.5mg 2.5 mg, Unive rs (ELIQUIS) 6 Oral, BID, ity of tablet 2.5 18:15: First dose [place] mg 00 on [facility] 05/06/22 at Branch 1315, Until Discontinu ed, Routine
Indicatio ns: Non-Valvul ar Atrial Fibrillati on clonazePAM 2021-0 Yes 1mg Take 1 mg Un joselito 1 mg tablet 6-11 by mouth 3 it y of 17:17: (three) [place] [address] times Medical daily. Branch clonazePAM 2021-0 Yes 1mg Take 1 mg Un joselito 1 mg tablet 6-11 by mouth 3 it y of 17:17: (three) [place] [address] times Medical daily. Branch clonazePAM 2021-0 Yes 1mg Take 1 mg Un joselito 1 mg tablet 6-11 by mouth 3 it y of 17:17: (three) [place] [address] times Medical daily. Branch clonazePAM 2021-0 Yes 1mg Take 1 mg Un joselito 1 mg tablet 6-11 by mouth 3 it y of 17:17: (three) [place] [address] times Medical daily. Branch clonazePAM 2021-0 Yes 1mg Take 1 mg Un joselito 1 mg tablet 6-11 by mouth 3 it y of 17:17: (three) [place] [address] times Medical daily. Branch magnesium 2021-0 2021- No 2g 2 g, IV Univ ers sulfate in 05-06 Piggyback, it y of water 2 12:00: 17:45 Administer Phillip as gram/50 mL 00 :00 over 60 Medica l (4 %) Minutes, Branch infusion 2 ONCE, 1 g dose, On [facility] 05/06/22 at 0700, Routine KCL No 20meq 20 mEq, Univers (KLOR-CON 05-06 Oral, ity of M20) tablet 12:00: 16:45 ONCE, 1 [place] 20 mEq 00 :00 dose, On Medical Sat Branch 05/06/22 at 0700, Routine predniSONE 2021- No 20mg Take 20 mg Univers 20 mg 05-06 by mouth ity of tablet 10:49: 00:00 daily. [place] 53 :00 Medical Branch atorvastati Yes 80mg 80 mg, Univ ers n (LIPITOR) 05-06 Oral, QHS, it y of tablet 80 02:00: First dose [place] mg 00 on [facility] Medical 05/05/22 at Branch 2100, Until Discontinu ed, Routine apixaban 2021- No 1358 2.5mg Take 1 Unive rs 2.5 mg 05-06 tablet by ity of tablet 00:00: 04:59 mouth 2 [place] 00 :00 (two) Medical times [place] daily for 60 days. Indication s: atrial fibrillati on metoprolol 2021- No [id number] 25mg Take 1 Univers succinate 05-06 tablet by ity of XL 25 mg 24 00:00: 04:59 mouth [place] hr tablet 00 :00 daily for Medic al 60 days. Branch apixaban 2021- No 1358 2.5mg Take 1 Unive rs 2.5 mg 05-06 tablet by ity of tablet 00:00: 04:59 mouth 2 [place] 00 :00 (two) Medical times [place] daily for 60 days. Indication s: atrial fibrillati on metoprolol 2021- No [id number] 25mg Take 1 Univers succinate 05-06 tablet by ity of XL 25 mg 24 00:00: 04:59 mouth [place] hr tablet 00 :00 daily for Medic al 60 days. Branch apixaban 2021- No 1358 2.5mg Take 1 Unive rs 2.5 mg 05-06 tablet by ity of tablet 00:00: 04:59 mouth 2 [place] 00 :00 (two) Medical times [place] daily for 60 days. Indication s: atrial fibrillati on metoprolol 2021- No [id number] 25mg Take 1 Univers succinate 6- 08-11 tablet by ity of XL 25 mg 24 00:00: 04:59 mouth [place] hr tablet 00 :00 daily for Medic al 60 days. Branch apixaban 2021- No 1358 2.5mg Take 1 Unive rs 2.5 mg 6- 08-11 tablet by ity of tablet 00:00: 04:59 mouth 2 [place] 00 :00 (two) Medical times [place] daily for 60 days. Indication s: atrial fibrillati on metoprolol 2021- No [id number] 25mg Take 1 Univers succinate 6- 08-11 tablet by ity of XL 25 mg 24 00:00: 04:59 mouth [place] hr tablet 00 :00 daily for Medic al 60 days. Branch apixaban 2021- No 1358 2.5mg Take 1 Unive rs 2.5 mg 6-10 03-11 tablet by ity of tablet 00:00: 04:59 mouth 2 [place] 00 :00 (two) Medical times [place] daily for 60 days. Indication s: atrial fibrillati on metoprolol 2021- No [id number] 25mg Take 1 Univers succinate 6 08-11 tablet by ity of XL 25 mg 24 00:00: 04:59 mouth [place] hr tablet 00 :00 daily for Medic al 60 days. Branch predniSONE 2021- No [id number] 10mg Take 1 Univers 10 mg 6-10 01-13 tablet by ity of tablet 00:00: 04:59 mouth [place] 00 :00 daily for Medical 1 day. Branch HEPARIN 2021- No 60U/kg 2,724 Univer s SODIUM 6-10 06-10 Units (60 ity of (PORCINE) 18:30: 21:20 Units/kg [place] as 1,000 00 :00 ?45.4 kg), Medical UNIT/ML IV Push, Branch BOLUS ACS ONCE, 1 ORDER SET dose, On Sun05/05/22 at 1330, RUSSELL heparin 2021- No 12U/kg/ 12 Univer s 25,000 6-10 06-11 h Units/kg/h ity of Units/250 18:22: [...] Rang e, Dosing and Testing: &nbs p;FOR [place], AND [facility] ONLY &nbs p; - aPTT < 35: [...] OR INITIAL INFUSION RATE.
regadenoson 2021- No [id number] .4mg 0.4 mg, Univers (LEXISCAN) 05-05 Slow IV ity o f injection 17:15: 17:00 Push, [place] 0.4 mg 00 :00 ONCE, 1 Medical dose, On Sun05/05/22 at 1215, Routine
meat service team member approving Restricted medication : KARI MENESES 2021- No [id number] 14.7[facility]7 [facility] 05-05 millicurie i ty of smin 17:00: 18:00 , [place] (MYOVIEW) 00 :00 Intravenou Medi michell injection s, ONCE, 1 Bran ch 14.7 dose, On millicurie Sun05/05/22 at 1200, Routine predniSONE Yes 10mg 10 mg, Unive rs (DELTASONE) 6-10 Oral, ity of tablet 10 14:00: DAILY, [place] mg 00 First dose Medical on Sun05/05/22 at 0900, Until Discontinu ed, Routine aspirin Yes 81mg 81 mg, Univers chewable 10 Oral, ity of tablet 81 14:00: DAILY, [place] mg 00 First dose Medical on Sun05/05/22 at 0900, Until Discontinu ed, Routine levalbutero Yes .31mg 0.31 mg, U nivers l (XOPENEX) 05-05 Inhalation it y of nebulizer 13:00: , TID, [place] solution 00 First dose Medic al 0.31 mg on Sun05/05/22 at 0800, Until Discontinu ed, Routine heparin 2021- No 5000U 5,000 Univers (porcine) 05-05 06-10 Units, ity of injection 13:00: 18:23 Subcutaneo [place] 5,000 Units 00 :11 us, Q12H, Med ical First dose Branch on Sun05/05/22 at 0800, Until Discontinu ed, Routine KCL 2021- No 40meq 40 mEq, Univers (KLOR-CON 05-05 06-10 Oral, 5X ity o f M20) tablet 11:00: 18:59 DAY, 2 [place] as 40 mEq 00 :00 doses, Medical First dose Branch on Sun05/05/22 at 0600, Last dose on Sun05/05/22 at 1000, Routine acetaminoph Yes 650mg 650 mg, Un joselito en 610 Oral, ity of (TYLENOL) 08:23: Q6HPRN, [place] tablet 650 33 Starting Medic al mg on Sun05/05/22 at 0323, Until Discontinu ed, Routine, Pain (scale 1-3) LORazepam 2021- No .5mg 0.5 mg, Univ ers (ATIVAN) 05-05 06-10 Slow IV ity of injection 06:30: 05:24 Push, [place] 0.5 mg 00 :00 ONCE, 1 Medical dose, On Branch 05/05/22 at 0130, STAT acetaminoph 2021- No 1000mg 1,000 mg, Univers en 05-05 Oral, ONCE ity of (TYLENOL) 03:45: 02:46 NOW, 1 [place] tablet 00 :00 dose, On Medical 1,000 mg Ellen 05/04/22 Branc h at 2245, Routine aspirin No 325mg 325 mg, Unive rs tablet 325 05-05 Oral, ity of mg 02:00: 01:00 ONCE, 1 [place] 00 :00 dose, On Medical [place] 05/04/22 Branch at 2100, STAT diltiazem No 15mg 15 mg, IV Un joselito (CARDIZEM 05-05 Push, ity of IV) 02:00: 00:53 ONCE, 1 [place] injection 00 :00 dose, On Medica l 15 mg [facility] 05/04/22 Branch at 2100, STAT
Fa culty member approving Restricted medication : KWABENA LEMUS Solu-Medrol No Notes: Shaquille raymond 3- (Same l 19:39: as:Solu-ME DROL, A-Methapre d) Benadryl No Notes: Memoria 3-02 (Same as: l 19:39: Benadryl) Saline No Notes: Memoria Flush 0.9% - (Same as: l 18:09: BD Karel 00 Posiflush) Acetaminoph 2018-11 Yes 1 - 2 tab, Memoria en 300 MG / 0-03 PO, Q4H, l Codeine 23:33: PRN Pain, Tiarra nn Phosphate 00 X 3 day, # 30 MG Oral 20 tab, 0 Tablet Refill(s) [Tylenol with Codeine #3] Saline 2018-11 No Notes: Memoria Flush 0.9% 0-03 (Same as: l 21:31: BD Posiflush) Clonazepam Yes 0.5 mg = 1 M emoria 0.5 MG Oral 6-28 tab, PO, l Tablet 23:53: TID, PRN [place] 00 Anxiety, 0 Refill(s) levalbutero Yes 0.63 mg = M emoria l 0.63 mg/3 - 3 mL, NEB, l mL 23:53: PRN, PRN Karel inhalation 00 Respirator solution y Pathway, # 180 inhalation , 0 Refill(s) 200 ACTUAT Yes 45 Memoria Levalbutero -28 microgram l l 0.045 23:53: = 1 puff, Tiarra nn MG/ACTUAT 00 INHALATION Metered , Q6H, PRN Dose Cough, Inhaler wheezing, [Xopenex] shortness of breath, # 1 ea, 0 Refill(s) clonazePAM Yes 0.5 mg = 1 M emoria 100 6-28 tab, PO, l microgram/m 23:53: TID, PRN He rmann l cpmd oral 00 Anxiety, 0 suspension Refill(s) NS (Bolus) No 500 mL, Shaquille raymond IV 05-23 500 ml/hr, l 18:52: Infuse [place] 00 Over: 1 hr, Route: IV, 500, Drug form: INJ, ONCE, Priority: STAT, Dosing Weight 48.182 kg, Start date: 05/23/18 13:52:00 CDT, Stop date: 05/23/18 13:52:00 CDT Prednisone No Notes: Memor ia - Take with l 07:00: food. [place] 00 Diphenhydra No Notes: Shaquille raymond mine - (Same as: l 23:46: Benadryl) Karel Protonix No Notes: Memoria 6-27 Tablet l 18:05: should not be chewed or crushed. (Same as: Protonix) methylPREDN No Notes: Shaquille raymond ISolone - (Same l SODium 18:00: as:Solu-ME Tiarra nn SUCCinate 00 DROL, A-Methapre d) Aspirin No Notes: Memoria 6-27 Take with l 14:00: food. Karel multivitami No Notes: Shaquille raymond n (Same l 14:00: as:One Tab [place] 00 Daily, Tab-A-Wu + Beta Carotene) Give with food. Xopenex No Notes: SEE Shaquille raymond 05-22 RT l 13:35: DOCUMENTAT [place] 00 ION (Same as:Xopenex ) Non-Formul cary Klonopin No Notes: Memoria 05-22 (Same As: l 13:25: KlonoPIN) [place] Ipratropium No Notes: SEE Memoria [place] 0.2 05-21 RT l MG/ML 19:19: DOCUMENTAT [place] Inhalant 00 ION (Same Solution as:Atroven t) Xopenex No Notes: SEE Shaquille raymond 05-21 RT l 19:18: DOCUMENTAT Karel 00 ION (Same as:Xopenex ) Non-Formul cary Metronidazo No 500 mg = 1 Memoria le 500 MG 02-14 tab, PO, l Oral Tablet 06:01: Q8H, X 7 He rmann [Flagyl] 00 day, # 21 tab, 0 Refill(s) Flagyl No 500 mg, Memoria 02-14 Route: PO, l 05:51: ONCE, Karel 00 Dosing Weight 48.182, kg, Priority: STAT, Start date: 02/14/18 0:51:00 CDT, Stop date: 02/14/18 0:51:00 CDT, ABX Indication : Infectious Diarrhea Ondansetron No Notes: Shaquille raymond 02-14 (Same as: l 01:19: Zofran) Karel 00 MEDICATION WASTE Product Size: 4 mg Product Wasted: ___ mg Famotidine No Notes: Memor ia 02-14 (Same as: l 01:19: Pepcid) [place] 00 Can be dilute in 5-10cc NS IVP: Slow IV push over at least 2 minutes. Sodium No 1,000 mL, Memori a Chloride 02-14 1000 l 0.9% 01:19: ml/hr, Karel (Bolus) IV 00 Infuse Over: 1 hr, Route: IV, 1,000, Drug form: INJ, ONCE, Priority: STAT, Dosing Weight 48.182 kg, Start date: 02/13/18 20:19:00 CDT, Stop date: 02/13/18 20:19:00 CDT Saline No Notes: Memoria Flush 0.9% 3-21 (Same as: l 22:41: BD Posiflush) Albuterol No Notes: Memori a 0.833 MG/ML 5-05 (Same as: l / 18:33: Duoneb) Ipratropium 00 [place] 0.167 MG/ML Inhalant Solution [DuoNeb] Al No Notes: Memoria hydroxide/M 5-05 (aluminum l g 15:08: hydroxide- Karel hydroxide/s 00 magnesium imethicone hyd-simeth 200 mg-200 icone mg-20 mg/5 200-200-20 mL oral mg/5ml 30 suspension ml ud [facility]) Ondansetron No Notes: Shaquille raymond 5-05 (Same as: l 15:08: Zofran) Nitroglycer No Notes: Shaquille raymond in -05 (Same l 15:08: as:Nitroqu ick, Nitrostat) "Do Not Crush" Sublingual tablet normal No 1,000 mL, Memori a saline 0.9% 5-05 Rate: 100 l IV 1,000 mL 13:40: ml/hr, Infuse over: 10 hr, Route: IV, Dosing Weight 52.273 kg, Total Volume: 1,000, Start date: 03/30/16 8:40:00 CDT, Duration: 30 day, Stop date: 04/29/16 8:39:00 CDT aspirin Yes 81 mg, PO, Shaquille raymond 5-05 Daily, 0 l 13:29: Refill(s) magnesium Yes 800 mg =, Mem oria citrate 5-05 PO, TID, 0 l 13:29: Refill(s) multivitami Yes otc, PO, Me moria n 5-05 Daily, 0 l 13:29: Refill(s) Vitamin B12 Yes 5000 mcg, M emoria Methylcobal 5-05 SL, Daily, l cameron 13:29: 0 Refill(s) Aspirin Yes 81 mg, PO, Shaquille raymond 5-05 Daily, 0 l 13:29: Refill(s) Karel 00 magnesium Yes 800 mg =, Mem oria citrate 5-05 PO, TID, 0 l 13:29: Refill(s) Karel 00 200 ACTUAT 2015- Yes 1 puff, Shaquille raymond Levalbutero 5-05 INHALATION l l 0.045 13:29: , Q6H, PRN Herm amy MG/ACTUAT 00 Cough, Metered wheezing, Dose shortness Inhaler of breath, [Xopenex] # 15 gm, 2 Refill(s) clonazePAM Yes 1 mg = 1 Mem oria 1 mg oral 5-05 tab, PO, l tablet 13:29: TID, # 270 Tiarra nn 00 tab, 0 Refill(s) Famotidine No Notes: Memor ia 20 MG Oral 5-05 (Same as: l Tablet 13:22: Pepcid) Karel [Pepcid] 00 Vital Signs Vital Name Observation Time Observation Value Comments Source Systolic blood 2022-05-06 13:43:00 162 mm[Hg] [facility] Diastolic blood 2022-05-06 13:43:00 93 mm[Hg] [facility] Heart rate 2022-05-06 13:43:00 89 /min [facility] Body temperature 2022-05-06 13:43:00 36.56 Twyla [facility] Oxygen saturation in 2022-05-06 13:43:00 95 /min [facility] Arterial blood by [facility] Pulse oximetry Branch Respiratory rate 2022-05-06 13:10:00 16 /min [facility] Body height 2022-05-05 07:26:00 154.9 cm [facility] Body weight 2022-05-05 07:26:00 45.36 kg [facility] BMI 2022-05-05 07:26:00 18.89 kg/m2 [facility] Systolic blood 2020-07-19 20:54:00 153 mm[Hg] [facility] Diastolic blood 2020-07-19 20:54:00 84 mm[Hg] [facility] Body height 2020-07-19 20:54:00 154 cm [facility] Body weight 2020-07-19 20:54:00 46.811 kg [facility] BMI 2020-07-19 20:54:00 19.74 kg/m2 [facility] Heart rate 2020-07-19 20:51:00 91 /min [facility] Heart Rate 2022-09-14 20:04:00 [facility] Systolic (mm Hg) 2022-09-14 20:04:00 Shaquille rial [place] Diastolic (mm Hg) 2022-09-14 20:04:00 Mem orial [place] Temperature Oral (F) 2022-09-14 15:59:00 99.1 F [facility] [place] Height 2022-09-09 23:10:00 5 [ft_i] [facility] [place] Weight 2022-09-09 23:10:00 [facility] BMI Calculated 2022-09-09 23:10:00 Memori al [place] Respitory Rate 2022-09-02 21:46:00 Memori al [place] Systolic (mm Hg) 2022-09-02 21:46:00 Shaquille rial [place] Diastolic (mm Hg) 2022-09-02 21:46:00 Mem orial [place] Temperature Oral (F) 2022-09-02 21:46:00 97.9 F [facility] [place] Height 2022-09-02 17:09:00 157.48 cm [facility] BMI Calculated 2022-09-02 17:09:00 Memori al [place] Weight 2022-09-02 17:09:00 [facility] [place] Systolic (mm Hg) 2022-09-02 17:09:00 Shaquille rial [place] Diastolic (mm Hg) 2022-09-02 17:09:00 Mem orial [place] Heart Rate 2022-09-02 17:09:00 [facility] [place] Respitory Rate 2022-09-02 17:09:00 Memori al [place] Temperature Oral (F) 2022-09-02 17:09:00 97.8 F [facility] [place] Respitory Rate 2020-01-26 23:51:00 Memori al [place] Systolic (mm Hg) 2020-01-26 23:51:00 Shaquille rial [place] Diastolic (mm Hg) 2020-01-26 23:51:00 Mem orial [place] Temperature Oral (F) 2020-01-26 23:51:00 98.3 F [facility] Respitory Rate 2020-01-26 22:58:00 Memori al [place] Systolic (mm Hg) 2020-01-26 22:58:00 Shaquille rial [place] Diastolic (mm Hg) 2020-01-26 22:58:00 Mem orial [place] Temperature Oral (F) 2020-01-26 22:58:00 98.5 F [facility] [place] Respitory Rate 2020-01-26 21:30:00 Memori al [place] Systolic (mm Hg) 2020-01-26 21:30:00 Shaquille rial [place] Diastolic (mm Hg) 2020-01-26 21:30:00 Mem orial [place] Heart Rate 2020-01-26 17:45:00 [facility] [place] Temperature Oral (F) 2020-01-26 17:45:00 98.7 F [facility] [place] Weight 2020-01-26 17:45:00 [facility] [place] Temperature Oral (F) 2019-08-28 23:50:00 98.6 F [facility] [place] Heart Rate 2019-08-28 23:50:00 [facility] [place] Respitory Rate 2019-08-28 23:50:00 Memori al [place] Systolic (mm Hg) 2019-08-28 23:50:00 Shaquille rial [place] Diastolic (mm Hg) 2019-08-28 23:50:00 Mem orial [place] Systolic (mm Hg) 2019-08-28 21:30:00 Shaquille rial [place] Diastolic (mm Hg) 2019-08-28 21:30:00 Mem orial [place] Heart Rate 2019-08-28 21:30:00 [facility] [place] Respitory Rate 2019-08-28 21:30:00 Memori al [place] Temperature Oral (F) 2019-08-28 21:30:00 98.0 F [facility] [place] Height 2019-08-28 21:30:00 157.48 cm [facility] BMI Calculated 2019-08-28 21:30:00 Memori al [place] Weight 2019-08-28 21:30:00 [facility] [place] Systolic (mm Hg) 2018-05-24 01:00:00 Shaquille rial [place] Diastolic (mm Hg) 2018-05-24 01:00:00 Mem orial [place] Respitory Rate 2018-05-24 01:00:00 Memori al [place] Heart Rate 2018-05-24 01:00:00 [facility] [place] Temperature Oral (F) 2018-05-24 01:00:00 98 F [facility] [place] Heart Rate 2018-05-23 19:24:00 [facility] [place] Temperature Oral (F) 2018-05-23 19:24:00 98.0 F [facility] [place] Respitory Rate 2018-05-23 19:24:00 Memori al [place] Systolic (mm Hg) 2018-05-23 19:24:00 Shaquille rial [place] Diastolic (mm Hg) 2018-05-23 19:24:00 Mem orial [place] Heart Rate 2018-05-23 16:41:00 [facility] [place] Temperature Oral (F) 2018-05-23 16:41:00 98.1 F [facility] [place] Systolic (mm Hg) 2018-05-23 16:41:00 Shaquille rial [place] Diastolic (mm Hg) 2018-05-23 16:41:00 Mem orial [place] Respitory Rate 2018-05-23 16:41:00 Memori al [place] Weight 2018-05-21 22:21:00 [facility] [place] BMI Calculated 2018-05-21 22:21:00 Memori al [place] Height 2018-05-21 22:21:00 157.48 cm [facility] [place] BMI Calculated 2018-05-21 19:02:00 Memori al [place] Weight 2018-05-21 19:02:00 [facility] [place] Height 2018-05-21 19:02:00 157.48 cm [facility] BMI Calculated 2018-05-21 17:59:00 Memori al [place] Weight 2018-05-21 17:59:00 [facility] [place] Height 2018-05-21 17:59:00 157.48 cm [facility] [place] Temperature Oral (F) 2018-02-14 06:16:00 98.3 F [facility] [place] Systolic (mm Hg) 2018-02-14 06:16:00 Shaquille rial [place] Diastolic (mm Hg) 2018-02-14 06:16:00 Mem orial [place] Respitory Rate 2018-02-14 06:16:00 Memori al [place] Systolic (mm Hg) 2018-02-14 06:05:00 Shaquille rial [place] Diastolic (mm Hg) 2018-02-14 06:05:00 Mem orial [place] Respitory Rate 2018-02-14 06:05:00 Memori al [place] Respitory Rate 2018-02-14 05:30:00 Memori al [place] Systolic (mm Hg) 2018-02-14 04:30:00 Shaquille rial [place] Diastolic (mm Hg) 2018-02-14 04:30:00 Mem orial [place] Weight 2018-02-13 22:40:00 [facility] [place] Height 2018-02-13 22:40:00 157.48 cm [facility] [place] BMI Calculated 2018-02-13 22:40:00 Memori al [place] Temperature Oral (F) 2018-02-13 22:40:00 98.8 F [facility] Heart Rate 2018-02-13 22:40:00 [facility] [place] Respitory Rate 2016-03-30 13:45:00 Memori al [place] Systolic (mm Hg) 2016-03-30 13:45:00 Shaquille rial [place] Diastolic (mm Hg) 2016-03-30 13:45:00 Mem orial [place] BMI Calculated 2016-03-30 13:14:00 Memori al [place] Height 2016-03-30 13:14:00 160.02 cm [facility] [place] Weight 2016-03-30 13:14:00 [facility] [place] Procedures Procedure Date / Time Performing Clinician Source Performed [id number] 2023-06-12 00:00:00 [facility] [id number] 2023-06-12 00:00:00 [facility] AUTHORIZATION FOR 2022-06-20 05:01:00 Doctor Unassigned, No [facility] RELEASE OF PHI Name Medical Branch MAGNESIUM 2022-05-06 09:33:00 Courtney Esparza Ina o f [facility] Branch BASIC METABOLIC PANEL 2022-05-06 09:33:00 Courtney Esparza [facility] (NA, K, CL, CO2, Medical Branch GLUCOSE, BUN, CREATININE, CA) ACTIVATED PARTIAL 2022-05-06 05:00:00 [facility] 2022-05-05 20:34:00 Isaak [facility] ACTIVATED PARTIAL 2022-05-05 20:34:00 Isaak [facility] TRANSTHORACIC ECHO (TTE) 2022-05-05 19:54:00 Anthony Schmidt [facility] COMPLETE [facility] NM MYOCARDIUM PERFUSION 2022-05-05 18:00:00 Niranjan Mulligan [facility] STRESS ONLY [facility] Branch MAGNESIUM 2022-05-05 09:13:00 [facility] 2022-05-05 09:13:00 Isaak [facility] BASIC METABOLIC PANEL 2022-05-05 09:13:00 Anthony Schmidt [facility] (NA, K, CL, CO2, Medical Branch GLUCOSE, BUN, CREATININE, CA) LIPID PANEL 2022-05-05 09:13:00 Anthony Schmidt [facility] ([id number])(TOTAL [facility] Branch CHOLESTEROL, TRIGLYCERIDES, HDL) CBC WITH DIFF 2022-05-05 09:13:00 Roxana [facility] GLYCOSYLATED HEMOGLOBIN 2022-05-05 09:13:00 Anthony Schmidt [facility] (A1C) [facility] PROTHROMBIN TIME / INR 2022-05-05 09:13:00 Anthony Schmidt [facility] ACTIVATED PARTIAL 2022-05-05 09:13:00 Anthony Schmidt [facility] XR CHEST 2 VW 2022-05-05 01:45:00 Mireille [facility] CBC WITH DIFF 2022-05-05 00:52:00 Mireille [facility] TROPONIN I 2022-05-05 00:51:00 Mireille [facility] COMP. METABOLIC PANEL 2022-05-05 00:51:00 Mireille [facility] ([id number]) [facility] N-TERMINAL PRO-BNP 2022-05-05 00:51:00 Kwabena Kendrick [facility] HB ECG ROUTINE & RHYTHM 2022-05-05 00:46:59 [facility] 2021-11-16 06:01:00 Doctor Unassigned, No Unive [facility] CBC WITH DIFF 2021-05-20 14:42:00 Jennifer [facility] o f [facility] PHYSICIAN ORDERS 2021-05-20 05:01:00 Doctor Unassigned, No Unive [facility] ASSIGNMENT OF BENEFITS 2020-07-19 20:31:34 Doctor Unassigned, No [facility] Uterine suspension [facility] Jacque reyes without shortening of round ligaments or sacrouterine ligaments Lymph node operation [facility] Bert ferreira Polypectomy Rudy Vinson Encounters Start End Encounter Admission Attending Care Care Encounter Source Date/Time Date/Time Type Type Clinicians Facility Department ID 2023-07-25 2023-07-25 Outpatient ARGENIS [facility] [id number] Memoria 15:00:00 15:00:00 20 l Karel 2023-06-12 2023-06-12 Inpatient VANDANA Magallanes INTE [id number] [facility] 05:45:00 16:55:00 Tobin 19 [facility] 2023-06-08 2023-06-08 Outpatient NEHA MagallanesCL 3DAY [id number] [facility] 08:00:00 09:00:00 Tobin 03 [facility] 2023-02-01 2023-02-02 Outpatient ARGENIS [facility] [id number] Memoria 20:32:00 05:59:00 Karel 10 l [facility] 2023-02-01 2023-02-01 Outpatient TIFFANY Dutton [facility] [id number] 14:32:00 23:59:00 Emil 10 2023-02-01 2023-02-01 Outpatient TIFFANY DUTTON PUL [id number] MH 14:32[facility]00 [facility] 2022-10-04 2022-10-05 Outpatient [facility] [id number] Memoria 19:45:00 05:59:00 james Vinson 13 l [facility] 2022-10-04 2022-10-04 Outpatient Dutton, MHSE MHSE [id number] 13:45:00 23:59:00 Emil 13 2022-10-04 2022-10-04 Outpatient DUTTON, MHSE PUL [id number] MH 13:45:00 23:59:00 [facility] 2022-09-08 2022-09-14 Inpatient [facility] [id number] Memoria 22:38:00 21:17:00 r Karel 87 l [facility] 2022-09-08 2022-09-14 Outpatient Shannan Bui MHSE MHSE [id number] 17:38:00 16:17:00 Thalcherelle 87 u 2022-09-08 2022-09-14 Inpatient U SHANNAN BUI MHSE MED [id number] MH 17:38:00 16:17:00 [facility] 2022-09-02 2022-09-02 Emergency [facility] [id number] Memoria 16:28:08 22:37:00 r Karel 08 l [facility] 2022-09-02 2022-09-02 Outpatient PARIS Peace MHPL [id number] 11:28:08 17:37:00 Tyrone Watkins Ivan 2022-09-02 2022-09-02 Emergency E KOBI, BL MHBL [id number] MHBL 11:28:00 17:37:00 TYRONE 2022-06-20 2022-06-20 Orders Doctor LISBETH [id number] Univers 00:00:00 00:00:00 Only Unassigned, SARTHAK 350.1.13.10 ity of [place] [facility] 4.2.7.2.686 Phillip as [phone] [facility] 009 Branch 2022-05-15 2022-05-15 Transition TATI Cooley 1.2.840.114 [id number] Univers 00:00:00 00:00:00 of Care Erick RAINEYY 350.1.13.10 [place] [phone] [facility] 403 Branch 2022-05-10 2022-05-10 Refill Josep, [facility] 1.2.840.114 [id number] Univers 00:00:00 00:00:00 Mike PRIMARY 350.1.13.10 it [place] [phone] Me dical 390 Branch 2022-05-08 2022-05-08 Transition TATI Cooley 1.2.840.114 [id number] Univers 00:00:00 00:00:00 of Care Erick Negrete WANDA 350.1.13.10 [place] [id number] [facility] [address] [place] 2022-05-04 2022-05-06 Inpatient X GUANACO [facility] [id number] Univers 19:48:00 16:00:00 MOSTAFA ity [facility] 2022-05-04 2022-05-06 [facility] BillKwabena mcmanus 1 .2.840.114 [id number] Univers 19:48:00 16:00:00 Encounter Mounika Giordano 350.1.1 3.10 ity of Jose Alfredo Blanc [facility] 4.2.7.2.686 [place] [phone] [facility] 091 Branch 2021-11-16 2021-11-16 Mechanical Applications Engineer Pearl, Mariusz Lab Main [facility] 1.2.8 40.114 [id number] Univers 10:15:00 10:30:00 Visit Cheryl Phelps 350.1.13.10 [place] PROF[place] [phone] Wa dical NAL 353 Branch BUILDING 2021-11-16 2021-11-16 Outpatient R DYLAN [facility] [id number] Univers 10:15:00 10:15:00 CHERYL sher [facility] 2021-11-16 2021-11-16 Orders Doctor BOB 1.2.840.114 [id number] Univers 00:00:00 00:00:00 Only Unassigned, SARTHAK 350.1.13.10 ity of [place] [facility] 4.2.7.2.686 Phillip as [phone] [address] 2021-05-20 2021-05-20 Outpatient James DYLAN [facility] [id number] Univers 09:45:00 09:45:00 CHERYL chengbrenton [facility] 2021-05-20 2021-05-20 Mechanical Applications Engineer Pearl, Mariusz Lab Main [facility] 1.2.8 40.114 [id number] Univers 09:27:21 09:42:21 Visit Cheryl Phelps Axis 350.1.13.10 it[place] Profess[place] [phone] Wa dical nal 353 [facility] 2021-05-20 2021-05-20 Orders Doctor LISBETH 1Bola2.840.114 [id number] Univers 00:00:00 00:00:00 Only Unassigned, SARTHAK 350.1.13.10 ity of [place] [facility] 4.2.7.2.686 Phillip as [phone] [address] 2020-07-19 2020-07-19 Office [facility] 1.2.974.299 [id number] Univers 15:34:08 16:20:11 Visit Gurinder [facility] 350.1.13.10 it y of Surgical 4.2.7.2.686 Phillip as Specialti [phone] Wa dical es 198 [facility] 2020-07-19 2020-07-19 Outpatient [facility] [id number] Univers 15:15:00 15:15:00 GURINDER sher [facility] 2020-07-19 2020-07-19 Orders Doctor LISBETH 1.2.840.114 [id number] Univers 00:00:00 00:00:00 Only Unassigned, SARTHAK 350.1.13.10 ity of [place] [facility] 4.2.7.2.686 Phillip as [phone] [address] 2020-01-26 2020-01-27 Outpatient [facility] [id number] Memoria 15:51:00 05:59:00 james Vinson 06 l [facility] 2020-01-26 2020-01-26 Outpatient CRISSY DuttonSE MHSE [id number] 09:51:00 23:59:00 Emil 06 2020-01-26 2020-01-26 Emergency nullFlavo [facility] [id number] Memoria 17:42:31 23:53:00 r Karel 07 [facility] 2020-01-26 2020-01-26 Outpatient Lisbeth Colby MHSE MHSE [id number] 11:42:31 17:53:00 Q 07 2020-01-26 2020-01-26 Emergency E LANDEN, MHSE MHSE [id number] 11:42:00 11:42:00 [facility] 2020-01-26 2020-01-26 Outpatient MARIJA, MHSE PUL [id number] MH 09:51:00 09:51:[facility] 2019-11-08 2019-11-09 Outpt Diag nullFlavo [facility] [id number] Memoria 17:20:00 05:59:00 Services r Outpatient 12 [facility] 2019-11-08 2019-11-08 Outpatient Briana, MHOIP OIP [id number] 11:20:00 23:59:00 Soledad Tyrese Fide 2019-09-12 2019-09-13 Outpt Diag nullFlavo [facility] [id number] Memoria 20:59:00 04:59:00 Services r Outpatient 11 [facility] 2019-09-12 2019-09-12 Outpatient Kalyn, MHOIP OIP [id number] 15:59:00 23:59:00 Cyrus Rodriguez 11 2019-08-28 2019-08-28 Emergency nullFlavo [facility] [id number] Memoria 21:20:21 23:52:00 [facility] 05 [facility] 2019-08-28 2019-08-28 Outpatient PARIS Patel MHPL [id number] 16:20:21 18:52:00 Lory Zan Herbkurt 2019-07-16 2019-07-17 Outpt Diag nullFlavo [facility] [id number] Memoria 16:14:00 04:59:00 Services r Outpatient 10 [facility] 2019-07-16 2019-07-16 Outpatient Batchu, MHOIP MHOIP [id number] 11:14:00 23:59:00 Vishalakshm 10 i 2019-06-12 2019-06-13 Outpt Diag nullFlavo [facility] [id number] Memoria 20:35:00 04:59:00 Services r Outpatient 09 l [facility] 2019-06-12 2019-06-12 Outpatient Batchu, MHOIP OIP [id number] 15:35:00 23:59:00 Vishalakshm 09 2019-04-25 2019-04-26 Outpt Diag nullFlavo [facility] [id number] Memoria 15:33:00 04:59:00 Services r Outpatient 08 l [facility] 2019-04-25 2019-04-25 Outpatient Batchu, MHOIP MHOIP [id number] 10:33:00 23:59:00 Vishalakshm 08 2019-01-20 2019-01-21 Outpt Diag nullFlavo [facility] [id number] Memoria 18:01:00 05:59:00 Services r Outpatient 07 l [facility] 2019-01-20 2019-01-20 Outpatient Gates, MHOIP MHOIP [id number] 12:01:00 23:59:00 Vaibhave Y 2018-12-19 2018-12-20 Outpt Diag nullFlavo [facility] [id number] Memoria 20:29:00 05:59:00 Services r Outpatient 06 l [facility] 2018-12-19 2018-12-19 Outpatient Gates, MHOIP MHOIP [id number] 14:29:00 23:59:00 Vaibhave Y 2018-12-19 2018-12-19 Outpatient Gates, MHOIP MHOIP [id number] 14:29:00 23:59:00 Vaibhave Y 2018-05-21 2018-05-24 Observatio nullFlavo [facility] [id number] Memoria 17:55:00 01:15:00 [facility] 04 l [facility] 2018-05-21 2018-05-23 Outpatient CRISSY DuttonSE [facility] [id number] 12:55:00 20:15:00 Emil 04 2018-02-13 2018-02-14 Emergency nullFlavo [facility] [id number] Memoria 22:24:00 07:00:00 [place] 03 l [facility] 2018-02-13 2018-02-14 Outpatient Randy, MHSE MHSE [id number] 17:24:00 02:00:00 Lynnette Varner 03 2017-11-14 2017-11-15 Outpt Diag nullFlavo [facility] [id number] Memoria 21:08:00 05:59:00 Services r Outpatient 04 l [facility] 2017-11-14 2017-11-14 Outpatient Batchu, MHOIP OIP [id number] 15:08:00 23:59:00 [facility] 04 2017-04-02 2017-04-03 Outpt Diag nullFlavo [facility] [id number] Memoria 13:46:00 04:59:00 Services r Outpatient 03 l [facility] 2017-04-02 2017-04-02 Outpatient Cresencioko, 2.16.840. 2.16.840.1. 3 [id number] 08:46:00 23:59:00 Anatoli N [id number] 3.615.30 5.30 2017-02-12 2017-02-13 Outpt Diag nullFlavo [facility] [id number] Memoria 20:38:00 04:59:00 Services r Outpatient 02 [facility] 2017-02-12 2017-02-12 Outpatient Batchu, OIP RUSTP [id number] 15:38:00 23:59:00 Vishalaks 02 i 2017-01-29 2017-01-29 Outpatient C_Hall MMG MMG [id number] [place] 04:11:00 04:11:00 [facility] 2016-03-30 2016-03-30 Bedded [facility] [id number] Memoria 11:58:00 20:10:00 Outpatient r [place] 02 l [facility] 2016-03-30 2016-03-30 Outpatient Jack, MHSE SE [id number] 06:58:00 15:10:00 Mabel Rivera 2016-03-23 2016-03-24 Outpatient [facility] [id number] Memoria 19:47:00 04:59:00 r Karel 19 [facility] 2016-03-23 2016-03-23 Outpatient Jack, [facility] [id number] 14:47:00 23:59:00 Nisheeth 19 [facility] 2015-11-06 2015-11-07 Outpatient [facility] [id number] Memoria 14:08:00 05:59:00 james Vinson 01 l [facility] 2015-11-06 2015-11-06 Outpatient [place], [facility] [id number] 08:08:00 23:59:00 [facility] 01 i Results Test Description Test Time Test Comments Results Result Comments Source POC ARTERIAL BLOOD GAS 2023-06-12 10:21:00 Test Item Value Reference Range Interpretation Comme nts POC ARTERIAL BLOOD GAS PH (test code = POCPHA) 7.367 7.35-7. 45 N POC ARTERIAL BLOOD GAS PCO2 (test code = XQGRAA7W) 45.1 mmHg 35. 0-45 H POC TCO2 ARTERIAL (test code = POCTCO2) 27.3 POC ARTERIAL BLOOD GAS PO2 (test code = UUCAZ2I) 71.9 mmHg 80-10 0.0 L POC HCO3 ARTERIAL (test code = GZFMNU1H) 25.9 MMOL/L 22.0-26.0 N POC BASE EXCESS (test code = POCBEA) 0.3 MMOL/L -4.0-4.0 N POC O2 SATURATION (test code = POCO2S) 93.6 % 90-100 N BASIC METABOLIC [id number] 10:21:00 Test Item Value Reference Range Interpretation Comments SODIUM (test code = NA/ABG) 139 mmol/L 134-147 N POTASSIUM (test code = K/ABG) 3.8 mmol/L 3.4-5.0 N CHLORIDE (test code = CL/ABG) 106 mmol/L 100-108 N CREATININE ABG (test code = 0.5 mg/dL 0.6-1.0 L CREAABG) POC IONIZED CALCIUM (test code = 1.20 MMOL/L 1.12-1.32 N POCCA) POC GLUCOSE (test code = POCGLU) 141 MG/DL 70-110 H HEMOGLOBIN [id number] 10:21:00 Test Item Value Reference Range Interpretation Comments HEMOGLOBIN ABG (test code = 11.6 G/DL 11.0-15.0 N HGB/ABG) [id number] 10:21:00 Test Item Value Reference Range Interpretation Comments HEMATOCRIT (test code = HCT/ABG) 34 % 33.0-45.0 N POC LACTIC [id number] 10:21:00 Test Item Value Reference Range Interpretation Comments POC LACTIC ACID (test code = 0.5 mmol/l 0.9-1.7 L POCLAC) [id number] 08:30:00 Test Item Value Reference Range Interpretation Comments ACT-ISTAT (test code 239 SEC 74-137 H Perform ed by certified = ACTI) 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[facility] [place] [facility] - CT ANGIO [id number] 00:00:00 [facility] 1940 Sex: F Name: SIMONE PEREZ [facility] : 1940 Age/S: 82 / F [address] [place] [address] Bl Unit #: [id number] Loc: [place] [address] Phys: Tobin Frazier MD Acct: [id number] Dis Date: Status: ADM INPHONE #: [phone] Exam Date: 06/12/2023 1034 FAX #: [phone] Reason: VISUALIZE AORTIC ANEURYSM EXAMS: CPT CODE: [id number] CT ANGIO CHEST 31333 PROCEDURE INFORMATION: Exam: CTA Chest With Contrast CTA Abdomen With Contrast Exam date and time: 06/12/2023 10:26 AM Age: 82 years old Clinical indication: Condition or disease; Other: Visualize aortic aneurysm TECHNIQUE: Imaging protocol: Computed tomographic angiography of the chest with contrast. Exam focused on the arteries. Computed tomographic angiography of the abdomen with contrast. Exam focused on the arteries. 3D rendering (Not supervisedby radiologist): MIP and/or 3D reconstructed images were created by the technologist. Radiation optimization: All CT scans at this facility use at least one of these dose optimization techniques: automated exposure control; mA and/or kV adjustment per patient size (includes targeted exams where dose is matched to clinical indication); or iterative reconstruction. Contrast material: ISOUVE; Contrast volume: 100 ml; Contrast route: INTRAVENOUS (IV); REPORTING DATA: Count of CT and Cardiac NM exams in prior 12 months: This patient has received 0 known CTs and 0 known cardiac nuclear medicine studies in the 12 months prior to the current study. COMPARISON: DX XR CHEST 2 V 06/08/2023 11:53 AM FINDINGS:VASCULATURE: Pulmonary arteries: Normal. No pulmonary emboli. Aorta: Aortic root: 2.8 cm Aorta at si notubular junction: 2.8 cm Mid ascending aorta: 4.5 cm Mid transverse aortic arch: 2.8 cm Descendingthoracic aorta at pulmonary trunk level: 2.5 cm Distal descending thoracic aorta at diaphragmatic hiatus: 2.4 cm Abdominal aorta: 14 mm diameter Celiac trunk and mesenteric arteries: No occlusion or significant stenosis. Renal arteries: No occlusion or significant stenosis. CHEST: Lungs: Mild interstitial septal thickening. Perihilar bronchial wall thickening No consolidation. No masses. PAGE 1 Signed Report (CONTINUED) Name: SIMONE PEREZ [facility] : 1940 Age/S: 82 / F [address] [place] [address] Blvd Unit #: [id number] Loc: [place] [address] Phys: Tobin Frazier MD Acct: [id number] Dis Date: Status: ADM IN PHONE #: [phone] Exam Date: 06/12/2023 1034 FAX #: [phone] Reason: VISUALIZE AORTIC ANEURYSM EXAMS: CPT CODE: [id number] CT ANGIO CHEST 45020 (Continued) Pleural spaces:Unremarkable. No pneumothorax. No pleural effusion. Heart: Thickened aortic valve leaflets with calcification. Calcifications at the mitral valve annulus. There is opacification/flow within the left atrial appendage despite a occlusion device. Cardiomegaly. No pericardial effusion. ABDOMEN AND PELVIS:Liver: No mass. Gallbladder and bile ducts: Unremarkable. No calcified stones. No ductal dilation. Pancreas: Unremarkable. No mass. No ductal dilation. Spleen: Unremarkable. No splenomegaly. Adrenal glands: Unremarkable. No mass. Kidneys and ureters: Unremarkable. No solid mass. No hydronephrosis. Stomach and bowel: Moderate volume diffuse formed colonic fecal burden No obstruction. No mucosal thickening. Intraperitoneal space: Unremarkable. No free air. No significant fluid collection. Lymph nodes: Unremarkable. No enlarged lymph nodes. Bones/joints: Multilevel thoracolumbar degenerative disc disease. No acute fracture. Soft tissues: Unremarkable. IMPRESSION: 1. Aneurysmal mid ascending thoracic aorta, 4.5 cm diameter. No dissection. This may be secondary to aortic valve disease given leaflet thickening and calcification. 2. Mitral valve annulus calcification. 3. Continued flow/opacification within the left atrial appendage despite an occlusion device. 4. Cardiomegaly, mild interstitial septal thickening/edema. 5. Mild perihilar bronchial wall thickening suggesting chronic bronchitis. No acute pneumonia. 6. Moderate diffuse formed colonic fecal burden/constipation. Electronically Signedby Ozzy Cazares on 06/12/2023 at 1207 Reported and signed by: Cyrus Cazares M.D. PAGE 2 Signed Report (CONTINUED) Name: SIMONE PEREZ [facility] : 1940 Age/S: 82 / F [address] [place] [address] Unit #: [id number] Loc: [place] [address] Phys: Tobin Frazier MD Acct: [id number] Dis Date: Status: ADM IN PHONE #: [phone] Exam Date: 06/12/2023 1034 FAX #: [phone] Reason: VISUALIZE AORTIC ANEURYSM EXAMS: CPT CODE: [id number] CT ANGIO CHEST 11969 (Continued) CC: Tobin Frazier MD Technologist:RT Tana(R)(CT) CTDI: DLP: Trnscb Date/Time: 06/12/2023 (1207) Richa PAGE 3 Signed Report- CT ANGIO [id number] 00:00:00 [facility] PATRICIA TRAOREName: SIMONE PEREZ : 1940 Sex: F Name: SIMONE PEREZ [facility] [place] : 1940 Age/S: 82 / F [address] [place] [address] Blvd Unit #: [id number] Loc: [place] [address] Phys: Tobin Frazier MD Acct: [id number] Dis Date: Status: ADM INPHONE #: [phone] Exam Date: 06/12/2023 1034 FAX #: [phone] Reason: VISUALIZE AORTIC ANEURYSM EXAMS: CPT CODE: [id number] CT ANGIO ABDOMEN 44319 PROCEDURE INFORMATION: Exam: CTA Chest With Contrast CTA Abdomen With Contrast Exam date and time: 06/12/2023 10:26 AM Age: 82 years old Clinical indication: Condition or disease; Other: Visualize aortic aneurysm TECHNIQUE: Imaging protocol: Computedtomographic angiography of the chest with contrast. Exam focused on the arteries. Computed tomographic angiography of the abdomen with contrast. Exam focused on the arteries. 3D rendering (Not supervised by radiologist): MIP and/or 3D reconstructed images were created by the technologist. Radiation optimization: All CT scans at this facility use at least one of these dose optimization techniques: automated exposure control; mA and/or kV adjustment per patient size (includes targeted exams where doseis matched to clinical indication); or iterative reconstruction. Contrast material: ISOUVE; Contrastvolume: 100 ml; Contrast route: INTRAVENOUS (IV); REPORTING DATA: Count of CT and Cardiac NM exams in prior 12 months: This patient has received 0 known CTs and 0 known cardiac nuclear medicine studies in the 12 months prior to the current study. COMPARISON: DX XR CHEST 2 V 06/08/2023 11:53 AM FINDINGS: VASCULATURE: Pulmonary arteries: Normal. No pulmonary emboli. Aorta: Aortic root: 2.8 cm Aorta at s inotubular junction: 2.8 cm Mid ascending aorta: 4.5 cm Mid transverse aortic arch: 2.8 cm Descending thoracic aorta at pulmonary trunk level: 2.5 cm Distal descending thoracic aorta at diaphragmatic hiatus: 2.4 cm Abdominal aorta: 14 mm diameter Celiac trunk and mesenteric arteries: No occlusion or significant stenosis. Renal arteries: No occlusion or significant stenosis. CHEST: Lungs: Mild interstitial septal thickening. Perihilar bronchial wall thickening No consolidation. No masses. PAGE 1 Signed Report (CONTINUED) Name: SIMONE PEREZ [facility] : 1940 Age/S: 82 / F [address] [place] [address] Unit #: [id number] Loc: [place] [address] Phys: Tobin Frazier MD Acct: [id number] Dis Date: Status: ADM IN PHONE #: [phone] Exam Date: 06/12/2023 1034 FAX #: [phone] Reason: VISUALIZE AORTIC ANEURYSM EXAMS: CPT CODE: [id number] CT ANGIO ABDOMEN 46769 (Continued) Pleural spaces: Unremarkable. No pneumothorax. No pleural effusion. Heart: Thickened aortic valve leaflets with calcification. Calcifications at the mitral valve annulus. There is opacification/flow within the left atrial appendage despite a occlusion device. Cardiomegaly. No pericardial effusion. ABDOMEN AND PELVIS: Liver: No mass. Gallbladder and bile ducts: Unremarkable. No calcified stones. No ductal dilation. Pancreas: Unremarkable. No mass. No ductal dilation. Spleen: Unremarkable. No splenomegaly. Adrenal glands: Unremarkable. No mass. Kidneys and ureters: Unremarkable. No solid mass. No hydronephrosis. Stomach and bowel: Moderate volume diffuse formed colonic fecal burden No obstruction. No mucosal thickening. Intraperitoneal space: Unremarkable. No free air. No significant fluid collection. Lymph nodes: Unremarkable. No enlarged lymph nodes. Bones/joints: Multilevel thoracolumbar degenerative disc disease. No acute fracture. Soft tissues: Unremarkable. IMPRESSION: 1. 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 No dissection. This may be secondary to aortic valve disease given leaflet thickening and calcification. 2. Mitral valve annulus calcification. 3. Continued flow/opacification within the left atrial appendage despite an occlusion device. 4. Cardiomegaly, mild interstitial septal thickening/edema. 5. Mild perihilar bronchial wall thickening suggesting chronic bronchitis. No acute pneumonia. 6. Moderate diffuse formed colonic fecal burden/constipation. at 1207 Reported and signed by: Cyrus Cazares M.D. PAGE 2 Signed Report (CONTINUED) Name: SIMONE PEREZ [facility] : 1940 Age/S: 82 / F [address] [place] [address] Blvd Unit #: [id number] Loc: [place] [address] Phys: Tobin Frazier MD Acct:[id number] Dis Date: Status: ADM IN PHONE #: [phone] Exam Date: 06/12/2023 1034 FAX #: [phone] Reason: VISUALIZE AORTIC ANEURYSM EXAMS: CPT CODE: [id number] CT ANGIO ABDOMEN 92267 (Continued) CC: Tobin Frazier MD Technologist:RT Tana(R)(CT) CTDI: DLP: Trnscb Date/Time: 06/12/2023(1207) tJOANA Orig Print D/T: S: 06/12/2023 (120) PAGE 3 Signed [id number] 13:14:00 Test Item Value Reference Range Interpretation Comments PREALBUMIN (test code = PREALB) 20.3 mg/dL 16.0-40.0 N BASIC METABOLIC [id number] 13:14:00 Test Item Value Reference Range Interpretation Comments SODIUM (test code = 136 mEq/L 134-147 N NA) POTASSIUM (test code 3.8 mEq/L 3.4-5.0 N = K) CHLORIDE (test code 101 mEq/L 100-108 N = CL) CARBON DIOXIDE (test 31 mEq/l 21-33 N code = CO2) ANION GAP (test code 7 0-20 N = GAP) GLUCOSE (test code = 103 mg/dL 70-110 N GLU) BLOOD UREA NITROGEN 12 mg/dL 7-18 N (test code = BUN) GLOMERULAR 85.2 70-80 H The Glomerular FILTRATION RATE Filtration R ate is a (test code = GFR) calculated parameterbased on serum Creatinine, pat ient age and sex. GFR va luesless than 60 mL/min/ 1.73 square meters a re indicative ofCh ronic Kidney Disease. Values less than 15 mL/min/1.73squa re meters indicate Kidney failure. The calculation forGFR is based on the CKD-EPI (2020) calculat ion. This formulais race indifferent and is the recommended for jennifer for GFRby the Natio nal Kidney Foundati on for Adults.The GFR will not calculate if th e sex is unknown or if thepatient's ag e is <18 years. CREATININE (test 0.7 mg/dL 0.6-1.3 N code = CREAT) CALCIUM (test code = 9.0 mg/dL 8.0-10.5 N CA) PROTHROMBIN [id number] 12:50:00 Test Item Value Reference Range Interpretation Comments PROTHROMBIN TIME 21.8 SECONDS 9.3-12.9 H PATIENT (test code = PTP) INTERNATIONAL NORMAL 2.0 0.8-1.2 H [employer] INR BY RATIO (test code = INDICATIO N Indication INR) INR1. Prophylax is of venous thrombos is 2.0 - 3.0 (orthoped ic surgery), Proph ylaxis of venous throm bosis (other than hig h-risk surgery), Treat ment of Deep Vein Thrombosis/Pulm onary Embolism, Preve ntion of systemic emb olism - Tissue heart va lves, Acute Myocardia l Infarction (to prevent systemic emboli sm), Valvular heart disease, Atrial Fibrillation, Bileaflet mecha nical valve in aortic position.2. Mec hanical prosthetic valv es (high risk), 2. 5 - 3.5 Presence of Lup us Anticoagulant o r Antiphospholipi d Antibodies, Pre vention of systemic emb olism - Acute Myocardia l Infarction (to prevent recurrent infar ct). CBC W/AUTO [id number] 12:43:00 Test Item Value Reference Range Interpretation Comments WHITE BLOOD CELL (test code = 7.2 x10 3/uL 4.5-11.0 N WBC) RED BLOOD CELL (test code = 5.24 x10 6/uL 3.54-5.02 H RBC) HEMOGLOBIN (test code = HGB) 13.4 g/dL 11.0-15.0 N HEMATOCRIT (test code = HCT) 42.5 % 33.0-45.0 N MEAN CELL VOLUME (test code = 81.1 fL 81.0-99.0 N MCV) MEAN CELL HGB (test code = MCH) 25.6 pg 27.0-33.0 L MEAN CELL HGB CONCETRATION 31.5 g/dL 33.0-37.0 L (test code = MCHC) RED CELL DISTRIBUTION WIDTH CV 18.4 % 11.5-14.5 H (test code = RDW) RED CELL DISTRIBUTION WIDTH SD 52.9 fL 37.0-54.0 N (test code = RDW-SD) PLATELET COUNT (test code = 252 x10 3/uL 150-400 N PLT) MEAN PLATELET VOLUME (test code 10.2 fL 7.0-9.0 H = MPV) NEUTROPHIL % (test code = NT%) 71.5 % 56.0-77.0 N IMMATURE GRANULOCYTE % (test 0.4 % 0.0-2.0 N code = IG%) LYMPHOCYTE % (test code = LY%) 19.3 % 14.0-32.0 N MONOCYTE % (test code = MO%) 6.0 % 4.8-9.0 N EOSINOPHIL % (test code = EO%) 1.8 % 0.3-3.7 N BASOPHIL % (test code = BA%) 1.0 % 0.0-2.0 N NUCLEATED RBC % (test code = 0.0 % 0-0 N NRBC%) NEUTROPHIL # (test code = NT#) 5.17 x10 3/uL 2.0-7.6 N IMMATURE GRANULOCYTE # (test 0.03 x10 3/uL 0.00-0.03 N code = IG#) LYMPHOCYTE # (test code = LY#) 1.39 x10 3/uL 1.0-3.8 N MONOCYTE # (test code = MO#) 0.43 x10 3/uL 0.1-0.8 N EOSINOPHIL # (test code = EO#) 0.13 x10 3/uL 0.0-0.2 N BASOPHIL # (test code = BA#) 0.07 x10 3/uL 0.0-0.2 N NUCLEATED RBC # (test code = 0.00 x10 3/uL 0.0-0.1 N NRBC#) MANUAL DIFF REQUIRED (test code NO = MDIFF) - XR CHEST 2 [id number] 00:00:00 [facility] 1940 Sex: F FAX: Tobin Greer MD [phone] Ina: St: PRE Name: SIMONE PEREZ [facility] : 1940 Age/S: 82/F [address] [place] [address] Unit #: [id number] Loc: [place] [address] Phys: Tobin Frazier MD Acct: [id number] Dis Date: Status: PRE IN PHONE #: [phone] Exam Date: 06/08/2023 1155 FAX #: [phone] Reason: PRE OP EXAMS: CPT CODE: [id number] XR CHEST 2 V 26824 PROCEDURE INFORMATION: Exam: XR Chest Exam date and time: 06/08/2023 11:53 AM Age: 82 years old Clinical indication: Pre-operative exam;Cardiovascular screening and respiratory screening exam; Additional info: Pre op TECHNIQUE: Imaging protocol: Radiologic exam of the chest. Views: 2 views. PA and Lateral COMPARISON: DX XR CHEST 2 V 03/24/2018 6:09 AM FINDINGS: Lungs: No consolidation. Pleural spaces: No pleural effusion. Heart/Mediastinum: The heart and vascular markings are stable. Bones/joints: No gross acute findings. Scoliosis. IMPRESSION: No acute cardiopulmonary findings at 1425 Reported and signed by: Yobani Parada D.O. CC: Tobin Frazier MD Technologist: RT Cheo(R) Trnscrd Date/Time/By: 06/08/2023 (1949) : By: [id number] Orig Print D/T: S: 06/08/2023 (6894) PAGE 1 Signed [id number] 21:12:04 Test Item Value Reference Range Interpretation Comments RADRPT (test code Radiation Dose CTDIVOL = 0 = RADRPT) (mGy): DLP = 116.22 (mGy-cm)PROCEDURE INFORMATION: Exam: CT Chest Without Contrast; Diagnostic Exam date and time: 02/01/2023 3:41 PM Age: 82 years old Clinical indication: /r91.1 TECHNIQUE: Imaging protocol: Diagnostic computed tomography of the chest without contrast. Radiation optimization: All CT scans at this facility use at least one of these dose optimization techniques: automated exposure control; mA and/or kV adjustment per patient size (includes targeted exams where dose is matched to clinical indication); or iterative reconstruction. REPORTING DATA: Count of CT and Cardiac NM exams in prior 12 months: This patient has received 2 known CTs and 0 known cardiac nuclear medicine studies in the 12 months prior to the current study. COMPARISON: CHEST ABDOMEN PELVIS W CONTRAST CT 09/08/2022 11:37 PM, CT lung biopsy 09/13/2022 RADIATION DOSE METRICS: Total DLP (mGy-cm): 116.22 FINDINGS: Lungs: Virtual resolution of multiple confluent bilateral pulmonary infiltrates noted previously, with residual linear scarring in each lobe. No mass or endobronchial obstructing lesion. No bronchiectasis. Pleural spaces: No pleural effusion. Heart: Cardiomegaly, moderate coronary artery calcifications. No pericardial effusion. Lymph nodes: No gross adenopathy. Vasculature: Ectatic aorta with aneurysmal dilatation of the ascending aorta, diameter approximately 4.4 cm, unchanged. Intraperitoneal space: Unenhanced upper abdominal images grossly unremarkable. Bones/joints: Kyphosis, dextroscoliosis, moderate spondylosis and multilevel degenerative disc disease. Soft tissues: Unremarkable. IMPRESSION: 1. Virtual complete resolution of extensive confluent bilateral pulmonary infiltrates noted previously, with residual linear scarring. 2. Aneurysmal dilatation ascending aorta, diameter approximately 4.4 cm, unchanged. 3. Cardiomegaly, moderate coronary artery calcifications. 4. Dextroscoliosis with extensive spondylosis and multilevel degenerative disc disease. Cyrus Nichols MD On 02/02/2023 15:10:59; [id number] [facility] [id number] 13:28:22 Test Item Value Reference Range Interpretation Comments RADRPT (test code PROCEDURE INFORMATION: = RADRPT) Exam: XR Chest Exam date and time: 10/04/2022 2:06 PM Age: 81 years old Clinical indication: Shortness of breath; Additional info: /r06.02 TECHNIQUE: Imaging protocol: Radiologic exam of the chest. Views: 2 views. PA and Lateral COMPARISON: CHEST 1VIEW DX 09/13/2022 7:00 PM FINDINGS: Tubes, catheters and devices: Surgical clips overlie the right axilla region. Lungs: Pulmonary emphysema identified within the lungs. Linear density identified within the bilateral perihilar lungs. Linear densities extend into the upper lobes, worse on the right side. Bilateral interstitial and alveolar opacities demonstrate improvement since August 2022. Pleural spaces: Pleural and lung parenchymal scarring identified within right upper chest. No other pleural effusion or pneumothorax identified. Heart/Mediastinum: Cardiac silhouette appears hpoa-ex-vinldrjueg enlarged. Vasculature: Aiex-na-syvvqxoj atherosclerotic calcification demonstrated within the aorta. Tortuous and ectatic aorta is demonstrated. Bones/joints: Dextroscoliosis of the thoracic spine is demonstrated. Diffusely decreased bone density. Generalized bony degenerative changes. IMPRESSION: 1. Xorq-ju-mlunflcljb enlarged cardiac silhouette. 2. Pulmonary emphysema. 3. Linear bilateral perihilar and upper lobe pulmonary atelectasis, scarring. Right greater than left. 4. Improvement of bilateral pneumonia versus pulmonary edema since prior study. 5. Chronic findings. Cheryl Hewitt MD On 10/05/2022 07:27:02; [id number] [facility] [id number] 10:28:00 Test Item Value Reference Range Interpretation Comments Glucose Lvl (test code = Glucose Lvl) 94 70-99 [facility] HospitalNipgublHOSQTYAOU5293-30-11 10:28:00 Test Item Value Reference Range Interpretation Comments BUN (test code = BUN) 11 7-22 [facility] HospitalVhnirliHYCQPLVKA9060-56-15 10:28:00 Test Item Value Reference Range Interpretation Comments Creatinine Lvl (test code = Creatinine 0.48 0.50-1.40 Lvl) [facility] HospitalAigtlhkGPIXMFWHW6546-54-36 10:28:00 Test Item Value Reference Range Interpretation Comments Sodium Lvl (test code = Sodium Lvl) 138 135-145 [facility] HospitalNkjagreXWVFCOEIX4171-94-41 10:28:00 Test Item Value Reference Range Interpretation Comments Potassium Lvl (test code = Potassium 3.9 3.5-5.1 Lvl) [facility] HospitalZvisqhzXHNDWTWVD1197-76-68 10:28:00 Test Item Value Reference Range Interpretation Comments Chloride Lvl (test code = Chloride Lvl) 104 95-109 [facility] HospitalQfxnywrQMOFWLYIT2533-33-47 10:28:00 Test Item Value Reference Range Interpretation Comments CO2 (test code = CO2) 29 24-32 [facility] HospitalRoyljpvTDYNLUXUK6592-61-60 10:28:00 Test Item Value Reference Range Interpretation Comments Calcium Lvl (test code = Calcium Lvl) 8.8 8.5-10.5 [facility] HospitalTurxivxOQRZDHQVB2045-74-72 10:28:00 Test Item Value Reference Range Interpretation Comments AGAP (test code = AGAP) 8.9 10.0-20.0 [facility] HospitalSljoqmzTCESBECIQ2285-79-59 10:28:00 Test Item Value Reference Range Interpretation Comments eGFR (test code = eGFR) 94 [facility] CampusEherzygWCBRIFYWMJ6985-91-23 10:28:00 Test Item Value Reference Range Interpretation Comments WBC (test code = WBC) 9.5 3.7-10.4 [facility] CampusOxqiuqpJDVMWPUQZG3328-63-46 10:28:00 Test Item Value Reference Range Interpretation Comments RBC (test code = RBC) 4.30 4.20-5.40 [facility] CampusHydgsctLBQIPRHQRH4055-91-68 10:28:00 Test Item Value Reference Range Interpretation Comments Hgb (test code = Hgb) 11.1 12.0-16.0 [facility] CampusRtyvsamEOZFUACUCX5999-20-56 10:28:00 Test Item Value Reference Range Interpretation Comments Hct (test code = Hct) 35.0 36.0-48.0 [facility] CampusLlhkpckUNEFPTFLZR5008-18-39 10:28:00 Test Item Value Reference Range Interpretation Comments MCV (test code = MCV) 81.4 80.0-98.0 [facility] CampusQvqiogsJLHEGSHWRC0570-42-15 10:28:00 Test Item Value Reference Range Interpretation Comments MCH (test code = MCH) 25.9 pg 27.0-31.0 [facility] CampusArjdkhlBTBQQMETCY1822-66-65 10:28:00 Test Item Value Reference Range Interpretation Comments MCHC (test code = MCHC) 31.8 32.0-36.0 [facility] CampusFschrwcWEWCUOASFC7761-05-62 10:28:00 Test Item Value Reference Range Interpretation Comments RDW (test code = RDW) 17.3 11.5-14.5 [place] [id number] 10:28:00 Test Item Value Reference Range Interpretation Comments Platelet (test code = Platelet) 462 133-450 [facility] CampusFakbixsBFZLTIRBUS0356-59-78 10:28:00 Test Item Value Reference Range Interpretation Comments MPV (test code = MPV) 6.6 7.4-10.4 [facility] CampusOddpyzmIIDFLAKMMQ5270-44-07 10:28:00 Test Item Value Reference Range Interpretation Comments Segs (test code = Segs) 72.9 45.0-75.0 [facility] CampusSzqspsbXYZAVWAGRK8081-28-66 10:28:00 Test Item Value Reference Range Interpretation Comments Lymphocytes (test code = Lymphocytes) 15.6 20.0-40.0 [facility] CampusMoaoyosHNOLSNQPTJ9936-19-69 10:28:00 Test Item Value Reference Range Interpretation Comments Monocytes (test code = Monocytes) 9.8 2.0-12.0 [place] [id number] 10:28:00 Test Item Value Reference Range Interpretation Comments Eosinophils (test code = 0.8 See_Comment [A utomated message] The Eosinophils) system which ge nerated this result tra nsmitted reference range : <=4.0. The reference r aaron was not used to int erpret this result as normal/abnormal . [facility] CampusEmckzxjVYOZRHYSLX7041-95-73 10:28:00 Test Item Value Reference Range Interpretation Comments Basophils (test code = 0.9 See_Comment [Aut omated message] The Basophils) system which ge nerated this result tra nsmitted reference range : <=1.0. The reference r aaron was not used to int erpret this result as normal/abnormal . [facility] CampusGafzdazEVXIKSPEOZ7783-12-77 10:28:00 Test Item Value Reference Range Interpretation Comments Neutrophils # (test code = Neutrophils 6.9 1.5-8.1 #) [facility] CampusWkorcagWSUVHCEKWV7465-10-86 10:28:00 Test Item Value Reference Range Interpretation Comments Lymphocytes # (test code = Lymphocytes 1.5 1.0-5.5 #) [facility] CampusTafsrunCVBMORGWND1588-82-15 10:28:00 Test Item Value Reference Range Interpretation Comments Monocytes # (test code 0.9 See_Comment [Aut omated message] The = Monocytes #) system which generated this result tra nsmitted reference range : <=0.8. The reference r aaron was not used to int erpret this result as normal/abnormal . [facility] CampusOmtoxlpOAEFOVWTND1049-22-97 10:28:00 Test Item Value Reference Range Interpretation Comments Eosinophils # (test code 0.1 See_Comment [A utomated message] The = Eosinophils #) system whic h generated this result tra nsmitted reference range : <=0.5. The reference r aaron was not used to int erpret this result as normal/abnormal . [facility] CampusQkhoyhjIZRCCMLFMO1931-01-59 10:28:00 Test Item Value Reference Range Interpretation Comments Basophils # (test code 0.1 See_Comment [Aut omated message] The = Basophils #) system which generated this result tra nsmitted reference range : <=0.2. The reference r aaron was not used to int erpret this result as normal/abnormal . [facility] CenterSxlsrgdLFLFET5228-41-98 00:55:15 Test Item Value Reference Range Interpretation Comments RADRPT (test code = PROCEDURE INFORMATION: RADRPT) Exam: XR Chest Exam date and time: 09/13/2022 7:00 PM Age: 81 years old Clinical indication: Shortness of breath; Additional info: Shortness of breath/sob, chest heaviness TECHNIQUE: Imaging protocol: Radiologic exam of the chest. Views: 1 view. COMPARISON: CHEST 1VIEW DX 09/13/2022 2:20 PM FINDINGS: Lungs: Lungs are adequately expanded. There is mild to moderate streaky increased density in the right upper lung zone, mildly diminished now as compared to prior mild hazy increased density is present in the left upper lobe, unchanged. Pleural spaces: Unremarkable. No pleural effusion. No pneumothorax. Heart/Mediastinum: There is moderate enlargement of the cardiac silhouette with tortuosity and calcification of the thoracic aorta. Bones/joints: Gefd-fq-gwnwcmxf S-shaped thoracolumbar scoliosis.. Soft tissues: Surgical clips are present in the right axilla. IMPRESSION: There are streaky increased densities in the upper lung zones, greater on the right than the left, with mild improvement in the right lung zone now as compared prior. Findings are otherwise stable. 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 Percutaneous biopsy of a right lower lobe lung mass using CT guidance2. Moderate SedationCLINICAL INDICATION: 81-year-old female with multiple bilateral lung masses/consolidationsCOMPARISON : CT chest on 09/08/2022ONSENT: The procedure, risks, benefits, and alternatives were discussed with the patient and written informed consent was obtained. A "timeout" performed per protocol prior to the procedure.TECHNIQUE:CT imaging performed at this location utilizes radiation dose optimization techniques which include one or more of the following: Automated exposure control, adjustment of the mA and/or kV according to patient size, use of iterative reconstruction technique.forwarder operator: Dr. Mcmahonoperative diagnosis: Right lower lobe lung massPostoperative diagnosis: sameTotal radiation dose: 448.05 mGycmEstimated blood loss: Less than 10 ccModerate sedation: I supervised moderate sedation during this procedure. Patient was continuously monitored by a nurse using automated blood pressure, electrocardiogram, and pulse oximetry. The moderate sedation record is permanently stored in the hospital information system. The personal supervised moderate sedation time was 16 minutes. Medications administered: Versed 2 mg IV and Fentanyl 100 mcg IV.The patient was placed in a prone position on the CT table. Preprocedure CT was used to demarcate the right lower lobe mass/consolidation. The posterior right chest wall of the patient was prepped and draped using sterile technique. The overlying skin was anesthetized with 1% lidocaine. Using CT guidance, a 17-gauge introducer needle was advanced into the right lower lobe mass/consolidation. Subsequently, 4 core biopsies (18-gauge x 2cm) were obtained of this mass using a coaxial technique. Samples were sent for both histopathology and microbial analysis. The needles were removed at the end of the procedure and sterile dressings applied.Postprocedure imaging demonstrated no immediate complication. The patient was stable throughout the procedure.IMPRESSION:Successful percutaneous biopsy of a right lower lobe lung mass using CT guidance.Kayla Jones MD On 09/13/2022 16:42:59; [id number] [facility] [id number] 20:36:29 Test Item Value Reference Range Interpretation Comments RADRPT (test code PROCEDURE INFORMATION: = RADRPT) Exam: XR Chest Exam date and time: 09/13/2022 2:20 PM Age: 81 years old Clinical indication: /mass, post lung biopsy procedure TECHNIQUE: Imaging protocol: Radiologic exam of the chest. Views: 1 view. COMPARISON: 1. CHEST ABDOMEN PELVIS W CONTRAST CT 09/08/2022 11:37 PM 2. CHEST 1VIEW DX 09/02/2022 12:25 PM FINDINGS: Lungs: Stable bilateral consolidative opacities more severe on the right. Pleural spaces: No pneumothorax or pleural effusion. Heart/Mediastinum: Stable enlarged of the cardiac silhouette. Bones/joints: Dextroscoliosis of the thoracic spine. Soft tissues: Right axillary surgical clips. IMPRESSION: 1. No pneumothorax. 2. Stable bilateral consolidative opacities.Nicole Castanon MD On 09/13/2022 15:35:56; [id number] [facility]annAFB [id number] 15:45:00 Test Item Value Reference Range Interpretation Comments AFB Stain (test code = No Acid Fast Bacilli AFB Stain) Seen On Smear [facility] CenterCulture: AFB w/[id number] 15:45:00 Test Item Value Reference Range Interpretation Comments Culture: AFB w/Smear (test Culture in Process code = Culture: AFB w/Smear) [facility]annGram Stain [id number] 15:45:00 Test Item Value Reference Range Interpretation Comments Gram Stain Report Few Wbc'S; No Organisms (test code = Gram Seen Stain Report) [facility] PasoannCulture: Aspirate/Body Fluid/[id number] 15:45:00 Test Item Value Reference Range Interpretation Comments Culture: Aspirate/Body No Growth At 3 Days Fluid/Tissue (test code = Culture: Aspirate/Body Fluid/Tissue) [facility]annFungal [id number] 15:45:00 Test Item Value Reference Range Interpretation Comments Fungal Smear (test No Yeast Or Fungal code = Fungal Smear) Elements Seen [facility]annCulture: Fungal w/Mcwah4579-86-08 15:45:00 Test Item Value Reference Range Interpretation Comments Culture: Fungal w/Smear Culture In Progress (test code = Culture: Fungal w/Smear) [facility] [id number] 22:06:00 Test Item Value Reference Range Interpretation Comments PT (test code = PT) 14.5 s 12.0-14.7 [facility] PasoNbhkexkEHKZQCZWGI5383-49-43 22:06:00 Test Item Value Reference Range Interpretation Comments INR (test code = INR) 1.14 1 0.85-1.17 [facility]annFungal [id number] 01:05:00 Test Item Value Reference Range Interpretation Comments Fungal Smear (test No Yeast Or Fungal code = Fungal Smear) Elements Seen [facility]annlthen[facility]: Fungal w/Iqett1338-92-34 01:05:00 Test Item Value Reference Range Interpretation Comments Culture: Fungal w/Smear Culture In Progress (test code = Culture: Fungal w/Smear) [facility]annGram Stain [id number] 01:05:00 Test Item Value Reference Range Interpretation Comments Gram Stain Report Gram Stain Performed By: (test code = Gram [facility] Stain Report) [facility]annCulture: Respiratory w/Gram [id number] 01:05:00 Test Item Value Reference Range Interpretation Comments Culture: Respiratory Few Yeast Normal w/Gram Stain (test code Respiratory Katie = Culture: Respiratory Isolated w/Gram Stain) [facility]annGram [id number] 01:05:00 Test Item Value Reference Range Interpretation Comments Gram Stain (test Good Quality Specimen code = Gram Stain) Gram Positive Cocci Less Than 25 Squamous Epithelial Cells/Lpf [facility]2022-10-16 08:58:00 Test Item Value Reference Range Interpretation Comments Source Respiratory Nasophrngl Swb Panel PCR (test code = *NA*(09/10/22 3:58 AM) Source Respiratory Panel PCR) [facility]2022-10-16 08:58:00 Test Item Value Reference Range Interpretation Comments Influenza A PCR (test Negative *NA*(09/10/22 code = Influenza A PCR) 3:58 AM) [facility]2022-10-16 08:58:00 Test Item Value Reference Range Interpretation Comments Influenza B PCR (test Negative *NA*(09/10/22 code = Influenza B PCR) 3:58 AM) [address]10-16 08:58:00 Test Item Value Reference Range Interpretation Comments RSV PCR (test code = Negative *NA*(09/10/22 RSV PCR) 3:58 AM) [facility]2022-10-16 08:23:00 Test Item Value Reference Range Interpretation Comments Glucose POC (test code = Glucose POC) 114 70-99 [facility]2022-10-16 08:23:00 Test Item Value Reference Range Interpretation Comments Gluc POC Comment 1 (test code Notified RN/MD = Gluc POC Comment 1) [place] [id number] 05:09:25 Test Item Value Reference Range Interpretation Comments RADRPT (test code Radiation Dose CTDIVOL = 0 = RADRPT) (mGy): DLP = 150.01 (mGy-cm)PROCEDURE INFORMATION: Exam: CT Chest With Contrast; Diagnostic Exam date and time: 09/08/2022 11:34 PM Age: 81 years old Clinical indication: Patient HX: /shortness of breath, right lung mass, concern for metastatic disease. ; Additional info: /shortness of breath, right lung mass, concern for metastatic disease. TECHNIQUE: Imaging protocol: Diagnostic computed tomography of the chest with contrast. Radiation optimization: All CT scans at this facility use at least one of these dose optimization techniques: automated exposure control; mA and/or kV adjustment per patient size (includes targeted exams where dose is matched to clinical indication); or iterative reconstruction. Contrast material: OMNI; Contrast volume: 75 ml; Contrast route: INTRAVENOUS (IV); COMPARISON: CHEST WO CONTRAST CT 09/02/2022 3:48 PM RADIATION DOSE METRICS: Total DLP (mGy-cm): 150.01 FINDINGS: Lungs: Confluent, multifocal opacities preferentially involving the superior segment right lower lobe and apical region of the right upper lobe. Pleural spaces: Unremarkable. No pneumothorax. No pleural effusion. Heart: Unremarkable. No cardiomegaly. No pericardial effusion. Lymph nodes: No pathologic lymphadenopathy in the chest by CT size criteria. Vasculature: Ectatic ascending thoracic aorta measuring 4.4 x 4.3 cm. No aortic dissection. Bones/joints: Bones are osteopenic. No discrete lytic or blastic osseous lesions within the limitations of the extent of osteopenia. Soft tissues: Unremarkable. [place] OCEDURE INFORMATION: Exam: CT Abdomen And Pelvis With Contrast Exam date and time: 09/08/2022 11:34 PM Age: 81 years old Clinical indication: Patient HX: /shortness of breath, right lung mass, concern for metastatic disease. ; Additional info: /shortness of breath, right lung mass, concern for metastatic disease. TECHNIQUE: Imaging protocol: Computed tomography of the abdomen and pelvis with contrast. Radiation optimization: All CT scans at this facility use at least one of these dose optimization techniques: automated exposure control; mA and/or kV adjustment per patient size (includes targeted exams where dose is matched to clinical indication); or iterative reconstruction. Contrast material: OMNI; Contrast volume: 75 ml; Contrast route: INTRAVENOUS (IV); COMPARISON: ABDOMEN/PELVIS WO IV CONTRAST CT 02/13/2018 10:55 PM RADIATION DOSE METRICS: Total DLP (mGy-cm): 150.01 FINDINGS: Liver: Normal. No mass. Gallbladder and bile ducts: Normal. No calcified stones. No ductal dilation. Pancreas: Normal. No ductal dilation. Spleen: Normal. No splenomegaly. Adrenal glands: Normal. No mass. Kidneys and ureters: Normal. No hydronephrosis. Stomach and bowel: Large volume stool burden throughout the colon suggesting constipation. Appendix: Appendix not clearly visualized. Intraperitoneal space: Unremarkable. No free air. No significant fluid collection. Vasculature: Mild aortoiliac calcific atherosclerotic disease without aneurysmal dilatation. Lymph nodes: Unremarkable. No enlarged lymph nodes. Urinary bladder: No wall thickening. Reproductive: Unremarkable as visualized. Bones/joints: Bones are osteopenic. No discrete lytic or blastic osseous lesions within the limitations of the extent of osteopenia. Multilevel lumbar spine degenerative change. Soft tissues: No acute findings. IM PRESSION: CT Chest With Contrast; Diagnostic 1. Multifocal confluent opacities of the bilateral lungs appear relatively unchanged and are again favored represent pneumonia. Malignant process cannot be excluded and continued follow-up to ensure complete resolution recommended after appropriate therapy. 2. Ectatic ascending thoracic aorta. CT Abdomen And Pelvis With Contrast 1. Large volume stool burden throughout the colon suggesting constipation. 2. No findings to suggest metastatic disease in the abdomen or pelvis. Castro Mccann MD On 09/09/2022 00:09:06; [id number] [facility] PasoNext PointsCARDIAC [id number] 19:00:00 Test Item Value Reference Range Interpretation Comments Total CK (test code = Total CK) 19 12-191 [facility] CenterCARAC [id number] 19:00:00 Test Item Value Reference Range Interpretation Comments HS Troponin I (test code = HS Troponin 8 I) [facility]2022-10-08 19:00:00 Test Item Value Reference Range Interpretation Comments Glucose Lvl (test code = Glucose Lvl) 90 70-99 [facility]2022-10-08 19:00:00 Test Item Value Reference Range Interpretation Comments BUN (test code = BUN) 11 7-22 [facility] [id number] 19:00:00 Test Item Value Reference Range Interpretation Comments Creatinine Lvl (test code = Creatinine 0.50 0.50-1.40 Lvl) [facility] [id number] 19:00:00 Test Item Value Reference Range Interpretation Comments Sodium Lvl (test code = Sodium Lvl) 139 135-145 [facility] CenterHealthify [id number] 19:00:00 Test Item Value Reference Range Interpretation Comments Potassium Lvl (test code = Potassium 4.2 3.5-5.1 Lvl) [facility]2022-10-08 19:00:00 Test Item Value Reference Range Interpretation Comments Chloride Lvl (test code = Chloride Lvl) 102 95-109 [facility] PasoZin.gl [id number] 19:00:00 Test Item Value Reference Range Interpretation Comments CO2 (test code = CO2) 29 24-32 [facility] PasoNext PointsNOVANT HEALTH MED[facility] PARK [id number] 19:00:00 Test Item Value Reference Range Interpretation Comments Calcium Lvl (test code = Calcium Lvl) 9.1 8.5-10.5 [facility] PasoZin.gl [id number] 19:00:00 Test Item Value Reference Range Interpretation Comments Total Protein (test code = Total 7.3 6.4-8.4 Protein) [facility]2022-10-08 19:00:00 Test Item Value Reference Range Interpretation Comments Albumin Lvl (test code = Albumin Lvl) 2.3 3.5-5.0 [facility] PasoZin.gl [id number] 19:00:00 Test Item Value Reference Range Interpretation Comments ALT (test code = ALT) 20 See_Comment [Auto mated message] The system which ge nerated this result transmit mary reference range : <=65. The reference range was not used to interpr et this result as sp l/abnormal. [facility] PasoZin.gl [id number] 19:00:00 Test Item Value Reference Range Interpretation Comments AST (test code = AST) 14 See_Comment [Auto mated message] The system which ge nerated this result transmit mary reference range : <=37. The reference range was not used to interpr et this result as sp l/abnormal. [facility] PasoZin.gl [id number] 19:00:00 Test Item Value Reference Range Interpretation Comments Alk Phos (test code = Alk Phos) 176 39-136 [facility] PasoZin.gl [id number] 19:00:00 Test Item Value Reference Range Interpretation Comments Bili Total (test code = Bili Total) 0.3 0.2-1.3 [facility] CenterHealthify [id number] 19:00:00 Test Item Value Reference Range Interpretation Comments AGAP (test code = AGAP) 12.2 10.0-20.0 [facility] PasoZin.gl [id number] 19:00:00 Test Item Value Reference Range Interpretation Comments B/C Ratio (test code = B/C Ratio) 22 1 6-25 [facility]2022-10-08 19:00:00 Test Item Value Reference Range Interpretation Comments Globulin (test code = Globulin) 5.0 2.7-4.2 [facility]2022-10-08 19:00:00 Test Item Value Reference Range Interpretation Comments A/G Ratio (test code = A/G Ratio) 0.5 1 0.7-1.6 [facility]2022-10-08 19:00:00 Test Item Value Reference Range Interpretation Comments eGFR (test code = eGFR) 93 [facility] [id number] 19:00:00 Test Item Value Reference Range Interpretation Comments WBC (test code = WBC) 8.9 3.7-10.4 [facility] [id number] 19:00:00 Test Item Value Reference Range Interpretation Comments RBC (test code = RBC) 4.10 4.20-5.40 [facility] [id number] 19:00:00 Test Item Value Reference Range Interpretation Comments Hgb (test code = Hgb) 10.7 12.0-16.0 [place] [id number] 19:00:00 Test Item Value Reference Range Interpretation Comments Hct (test code = Hct) 33.3 36.0-48.0 [facility] [id number] 19:00:00 Test Item Value Reference Range Interpretation Comments MCV (test code = MCV) 81.1 80.0-98.0 [facility] CampusYzporzpZSKKDGTIFR8603-08-96 19:00:00 Test Item Value Reference Range Interpretation Comments MCH (test code = MCH) 26.0 pg 27.0-31.0 [facility] CampusOgtvlhnYFRENNHKVZ5199-23-16 19:00:00 Test Item Value Reference Range Interpretation Comments MCHC (test code = MCHC) 32.1 32.0-36.0 [facility] CampusDgtsypdETFPCMFCMZ4945-05-92 19:00:00 Test Item Value Reference Range Interpretation Comments RDW (test code = RDW) 16.5 11.5-14.5 [facility] [id number] 19:00:00 Test Item Value Reference Range Interpretation Comments Platelet (test code = Platelet) 521 133-450 [facility] CampusYustzoaLGFDGYFWNC9089-24-29 19:00:00 Test Item Value Reference Range Interpretation Comments MPV (test code = MPV) 7.0 7.4-10.4 [facility] CampusKxdjvykVYACSSXQVS4011-11-29 19:00:00 Test Item Value Reference Range Interpretation Comments Segs (test code = Segs) 72.6 45.0-75.0 [facility] Camp[id number] 19:00:00 Test Item Value Reference Range Interpretation Comments Lymphocytes (test code = Lymphocytes) 14.0 20.0-40.0 [facility] [id number] 19:00:00 Test Item Value Reference Range Interpretation Comments Monocytes (test code = Monocytes) 10.4 2.0-12.0 [facility] [id number] 19:00:00 Test Item Value Reference Range Interpretation Comments Eosinophils (test code = 2.1 See_Comment [A utomated message] The Eosinophils) system which ge nerated this result tra nsmitted reference range : <=4.0. The reference r aaron was not used to int erpret this result as normal/abnormal . [facility] [id number] 19:00:00 Test Item Value Reference Range Interpretation Comments Basophils (test code = 0.9 See_Comment [Aut omated message] The Basophils) system which ge nerated this result tra nsmitted reference range : <=1.0. The reference r aaron was not used to int erpret this result as normal/abnormal . [facility] [id number] 19:00:00 Test Item Value Reference Range Interpretation Comments Neutrophils # (test code = Neutrophils 6.5 1.5-8.1 #) [facility] [id number] 19:00:00 Test Item Value Reference Range Interpretation Comments Lymphocytes # (test code = Lymphocytes 1.2 1.0-5.5 #) [facility] [id number] 19:00:00 Test Item Value Reference Range Interpretation Comments Monocytes # (test code 0.9 See_Comment [Aut omated message] The = Monocytes #) system which generated this result tra nsmitted reference range : <=0.8. The reference r aaron was not used to int erpret this result as normal/abnormal . [facility] [id number] 19:00:00 Test Item Value Reference Range Interpretation Comments Eosinophils # (test code 0.2 See_Comment [A utomated message] The = Eosinophils #) system whic h generated this result tra nsmitted reference range : <=0.5. The reference r aaron was not used to int erpret this result as normal/abnormal . [facility] Ce[id number] 19:00:00 Test Item Value Reference Range Interpretation Comments Basophils # (test code 0.1 See_Comment [Aut omated message] The = Basophils #) system which generated this result tra nsmitted reference range : <=0.2. The reference r aaron was not used to int erpret this result as normal/abnormal . [facility] AND [id number] 19:00:00 Test Item Value Reference Range Interpretation Comments UA Color (test code = Yellow *NA*(09/02/22 UA Color) 2:00 PM) [facility] AND [id number] 19:00:00 Test Item Value Reference Range Interpretation Comments UA Turbidity (test code = Clear (09/02/22 2:00 UA Turbidity) PM) [facility] AND [id number] 19:00:00 Test Item Value Reference Range Interpretation Comments UA Spec Grav (test code *NA*(09/02/22 2:00 PM) = UA Spec Grav) [facility] AND [id number] 19:00:00 Test Item Value Reference Range Interpretation Comments UA pH (test code = UA pH) 7.0 1 5.0-8.0 [facility] AND [id number] 19:00:00 Test Item Value Reference Range Interpretation Comments UA Protein (test code Negative (09/02/22 2:00 = UA Protein) PM) [facility] [id number] 19:00:00 Test Item Value Reference Range Interpretation Comments UA Glucose (test code Negative (09/02/22 2:00 = UA Glucose) PM) [facility] [id number] 19:00:00 Test Item Value Reference Range Interpretation Comments UA Ketones (test code Negative *NA*(09/02/22 = UA Ketones) 2:00 PM) [facility] [id number] 19:00:00 Test Item Value Reference Range Interpretation Comments UA Bili (test code = Negative *NA*(09/02/22 UA Bili) 2:00 PM) [facility] AND [id number] 19:00:00 Test Item Value Reference Range Interpretation Comments UA Blood (test code = Trace *ABN*(09/02/22 UA Blood) 2:00 PM) [facility] AND [id number] 19:00:00 Test Item Value Reference Range Interpretation Comments UA Urobilinogen (test code = UA 0.2 0.1-1.0 Urobilinogen) [facility] AND [id number] 19:00:00 Test Item Value Reference Range Interpretation Comments UA Nitrite (test code Negative (09/02/22 2:00 = UA Nitrite) PM) [facility] AND [id number] 19:00:00 Test Item Value Reference Range Interpretation Comments UA Leuk Est (test code Trace *ABN*(09/02/22 = UA Leuk Est) 2:00 PM) [facility] AND [id number] 19:00:00 Test Item Value Reference Range Interpretation Comments UA Sq Epi (test code = UA Sq Occasional /LPF Epi) [facility] AND [id number] 19:00:00 Test Item Value Reference Range Interpretation Comments UA WBC (test code = 1 See_Comment [Automa mary message] The UA WBC) system which ge nerated this result transmit mary reference range : <=5. The reference range was not used to interpr et this result as sp l/abnormal. [facility] AND [id number] 19:00:00 Test Item Value Reference Range Interpretation Comments UA RBC (test code = 1 See_Comment [Automa mary message] The UA RBC) system which ge nerated this result transmit mary reference range : <=2. The reference range was not used to interpr et this result as sp l/abnormal. [facility] AND [id number] 19:00:00 Test Item Value Reference Range Interpretation Comments UA Trans Epi (test code = UA Trans Epi) 2 [facility] METABOLIC PANEL (NA, K, CL, CO2, GLUCOSE, BUN, CREATININE, CA)2022-05-06 10:53:23 Test Item Value Reference Range Interpretation Comments NA (test code = 138 mmol/L 135-145 9913687172) K (test code = 3.9 mmol/L 3.5-5.0 Slight 2980762572) hemolysis CL (test code = 107 mmol/L 98-108 7065398092) CO2 TOTAL (test code 26 mmol/L 23-31 = 8490201858) AGAP (test code = 2-16 9820134914) BUN (test code = 15 mg/dL 7-23 Slight 0458477387) hemolysis GLUCOSE (test code = 86 mg/dL 70-110 5578473823) CREATININE (test code 0.44 mg/dL 0.50-1.04 L = 9569351922) CALCIUM (test code = 8.6 mg/dL 8.6-10.6 4818272638) eGFR (test code = mL/min/1.73m2 2346039053) SHERON (test code = SHERON) Association of Glomerular Filtration Rate (GFR) and Staging of Kidney Disease* + -----+ --------+ +| GFR (mL/min/1.73 m2) ?| With Kidney Damage ?| ?Without Kidney Damage+ +------- +---- --+| ?>90 ?| ?Stage one ?| ? Normal ?+ ------+ ---------+--------- +| ?60-89 ?| ?Stage two ?| ? Decreased GFR ? + -----+ --------+ +| ?30-59 ?| ?Stage three ?| ? Stage three ? + -----+ --------+ +| ?15-29 ?| ?Stage four ? | ? Stage four ?+ ------+ ---------+--------- +| ?<15 (or dialysis) ? ?| ?Stage five ? | ? Stage five ?+ ------+ ---------+--------- + *Each stage assumes the associated GFR [...] tests). Lab Interpretation Abnormal (test code = 17425-6) [facility]23 Test Item Value Reference Range Interpretation Comments MAGNESIUM (test code = 7276307366) 1.8 mg/dL 1.7-2.4 Lab Interpretation (test code = Normal 80441-3) [facility]2022-05-06 06:09:23 Test Item Value Reference Range Interpretation Comments APTT Patient (test code See_Comment H [Au tomated message] = 3173-2) The system [employer] generated this result transmitted ref erence range: 26 - 36 Seconds. The reference range was not used to int erpret this result as normal/abnormal . Lab Interpretation (test Abnormal code = 50169-3) [facility]2022-05-05 23:46:22 Test Item Value Reference Range Interpretation Comments Height (test code = in 9103511070) Weight (test code = lbs 2037672401) Systolic BP (test code = mmHg 1510095489) Diastolic BP (test code mmHg = 7913851841) LVOT stroke volume (test 45.80 cm3 code = 8348167360) EF (HM) (test code = 57.00 % 2783019303) EF(Teich) (test code = 48.60 % 6976313188) LVIDD (test code = 3.20 cm 5167566390) LVIDS (test code = 2.41 cm 1130957318) IVS (test code = 1.30 cm 4017020373) LVPWD (test code = 1.39 cm 3925539055) LVOT diameter (test code 1.81 cm = 7786606522) FS (test code = 24 % 5827603687) MV Peak E Mack (test code 76.7 cm/s = 6243707006) MV Peak A Mack (test code 95.5 cm/s = 8268012684) E/A ratio (test code = ratio 9969122519) E wave decelartion time 0.17 s (test code = 4989217143) MV E/e' septal (test 5.4 cm/s code = 7647629127) LA Volume Index (BP) 34.4 mL/m2 (test code = 4278681129) LA volume (BP) (test 48.5 mL code = 7437703832) LVOT peak mack (test code 81.4 cm/s = 8272713748) LVOT mn grad (test code mmHg = 0407502212) Left Ventricular Cardiac 3.4 L/min Output (test code = 5436176) ED Current (HM) (test 60.00 % code = 8527986237) ED Default (HM) (test 60.00 % code = 2981589820) SV (HM) (test code = 47.00 mL 7969538960) BSA (test code = 1.41 m2 7251171198) LA size (test code = 4.2 cm 0064853848) LAV(MOD-sp2) (test code 68.10 mL = 3953220033) LAV(MOD-sp4) (test code 34.80 mL = 5283732008) Tapse (test code = 2.15 cm 1013152785) AV LVOT peak gradient mmHg (test code = 2922940662) LVOT peak VTI (test code 17.9 cm = 6882188484) Aortic HR (test code = BPM 9401048274) LV V1 mean (test code = 54.50 cm/s 8358049812) MV Prop V (test code = 43.60 cm/s 3809893771) TR Peak Mack (test code = 230.1 cm/s 5943966741) Triscuspid Valve mmHg Regurgitation Peak Gradient (test code = 1706252384) Ao root annulus (test 3.3 cm code = 3149968061) Ao root diam (test code 3.30 cm = 3875001537) Aortic root (test code = 3.3 cm 7780756529) PW (test code = 1.39 cm 0.6-1.1 9364358502) EF - 2D (test code = 48.60 % 71717860) Interventricular Septum 1.30 cm Diastolic Thickness by 2D (test code = 3320956) Aortic valve mean 58.9 cm/s velocity (test code = 5365699074) Ao peak mack (test code = 85.5 cm/s 6362150817) Ao VTI (test code = 18.7 cm 5337527663) AV area by cont VTI 2.5 cm2 (test code = 5458531734) AV area peak mack (test 2.4 cm2 code = 2079270923) Ao max PG (test code = 2.90 mm[Hg] 9053450442) AV peak gradient (test mmHg code = 8758897590) AV valve area (test code 2.46 cm2 = 3955729725) AV mean gradient (test mmHg code = 2256482754) Radiology Study observation (narrative) (test code = 39991-8) SHERON (test code = SHERON) ?Left?Ventricle: Left [...] calcification. No significant stenosis. [facility]id Hendricks [id number] 21:37:21 Test Item Value Reference Interpretation Comments Range TROPONIN I (test 0.142 ng/mL See_Comment H [Automated code = 8631689906) message] The system which generated this result [...] biotin. Lab Interpretation Abnormal (test code = 03080-1) [facility] 20:56:29 Test Item Value Reference Range Interpretation Comments APTT Patient (test code = See_Comment [ Automated message] 3173-2) The system [employer] generated this result transmitted ref erence range: 26 - 36 Seconds. The re ference range was not u sed to interpret this result as normal/abnor mal. Lab Interpretation (test Normal code = 15044-8) [facility] HospitalTROPONIN [id number] 17:01:12 Test Item Value Reference Interpretation Comments Range TROPONIN I (test 0.334 ng/mL See_Comment H [Automated code = 4030903203) message] The system which generated this result [...] biotin. Lab Interpretation Abnormal (test code = 16446-5) [facility] HospitalGLYCOSYLATED HEMOGLOBIN (A1C)2022-05-05 12:22:37 Test Item Value Reference Range Interpretation Comments HGB A1C (test code = 5.7 % 4.0-5.7 4548-4) SHERON (test code = SHERON) Reference RangesNormal: <5.7%Prediabetes: 5.7 - 6.4%Diabetes: > 6.5% Lab Interpretation (test Normal code = 37941-5) [facility] HospitalLIPID PANEL (01383)(TOTAL CHOLESTEROL, TRIGLYCERIDES, HDL)2022-05-05 12:05:05 Test Item Value Reference Range Interpretation Comments CHOL (test code = 138 mg/dL 120-200 7732735882) HDL (test code = 60 mg/dL >50 5245289463) HDLC RATIO (test code = See_Comment [Au tomated message] 7770129340) The system [employer] generated this result transmit mary reference range : <=4.5. The refe rence range was not u sed to interpret th is result as normal/abnormal . TRIG (test code = 41 mg/dL 30-170 8128445943) LDL CHOL (test code = 70 mg/dL See_Comment [Auto mated message] 11340-2) The system [employer] generated this result transmit mary reference range : <=160. The refe rence range was not u sed to interpret th is result as normal/abnormal . VLDL (test code = 8 mg/dL 5-60 4432510108) Lab Interpretation (test Normal code = 20527-0) [facility] METABOLIC PANEL (NA, K, CL, CO2, GLUCOSE, BUN, CREATININE, CA)2022-05-05 10:13:58 Test Item Value Reference Range Interpretation Comments NA (test code = 141 mmol/L 135-145 2886576180) K (test code = 3.3 mmol/L 3.5-5.0 L 4879260554) CL (test code = 105 mmol/L 98-108 9185537369) CO2 TOTAL (test code = 33 mmol/L 23-31 H 7680013169) AGAP (test code = 2-16 4108855622) BUN (test code = 20 mg/dL 7-23 8883004030) GLUCOSE (test code = 86 mg/dL 70-110 2317168373) CREATININE (test code = 0.66 mg/dL 0.50-1.04 1656500270) CALCIUM (test code = 8.5 mg/dL 8.6-10.6 L 8009277783) eGFR (test code = mL/min/1.73m2 3365930307) SHERON (test code = SHERON) Association of [...] tests). Lab Interpretation Abnormal (test code = 59214-3) [facility] HospitalMagnesium [id number] 10:13:58 Test Item Value Reference Range Interpretation Comments MAGNESIUM (test code = 1406193601) 2.1 mg/dL 1.7-2.4 Lab Interpretation (test code = Normal 04819-7) [facility] HospitalProthrombin Time / [id number] 09:37:34 Test Item Value Reference Range Interpretation Comments PROTIME PATIENT (test See_Comment [Auto mated message] code = 5964-2) The system [employer] generated this result transmitted ref erence range: 10.1 - 1 2.6 Seconds. The re ference range was not u sed to interpret this result as normal/abnor mal. INR (test code = 6301-6) Nor mal INR <1.1; Warfarin Therap eutic range 2.0 to 3. 0 or 2.5 to 3.5, dep ending upon the indica tions. Lab Interpretation (test Normal code = 09559-4) [facility] 09:37:34 Test Item Value Reference Range Interpretation Comments APTT Patient (test code = See_Comment [ Automated message] 3173-2) The system whic h generated this result transmitted ref erence range: 26 - 36 Seconds. The re ference range was not u sed to interpret this result as normal/abnor mal. Lab Interpretation (test Normal code = 92226-5) [facility] WITH [id number] 09:24:32 Test Item Value Reference Range Interpretation Comments WBC (test code = See_Comment [Automated 1490-2) message] The sy stem which generated this [...] (test code = 52.8 fL 39.0-49.9 H 72596-9) RDW-CV (test code = 17.2 % 12.0-15.5 H 788-0) PLT (test code = See_Comment [Automated 777-3) message] The sy stem which generated this result transmitted reference range : 166 - 358 10*3/ ?L. The reference r aaron was not used to interpret this result as normal/abnormal . MPV (test code = 10.1 fL 9.5-12.9 33586-4) NRBC/100 WBC (test See_Comment [Automat ed code = 2455665858) message] The system which generated this result transmitted reference range : 0.0 - 10.0 /100 WBCs. The refer ence range was not u sed to interpret th is result as normal/abnormal . NRBC x10^3 (test code <0.01 See_Comment [Auto mated = 6952772581) message] The s ystem which generated this result transmitted reference range : 10*3/?L. The reference range was not used to interpret this result as normal/abnormal . GRAN MAT (NEUT) % 66.6 % (test code = 770-8) IMM GRAN % (test code 0.20 % = 9791369630) LYMPH % (test code = 21.4 % 736-9) MONO % (test code = 10.3 % 5905-5) EOS % (test code = 1.1 % 713-8) BASO % (test code = 0.4 % 706-2) GRAN MAT x10^3(ANC) 5.71 10*3/uL 1.88-7.09 (test code = 5082361840) IMM GRAN x10^3 (test <0.03 0.00-0.06 code = 7864102647) LYMPH x10^3 (test code 1.83 10*3/uL 1.32-3.29 = 731-0) MONO x10^3 (test code 0.88 10*3/uL 0.33-0.92 = 742-7) EOS x10^3 (test code = 0.09 10*3/uL 0.03-0.39 711-2) BASO x10^3 (test code 0.03 10*3/uL 0.01-0.07 = 704-7) Lab Interpretation Abnormal (test code = 20558-0) [facility] [id number] 01:34:30 Test Item Value Reference Interpretation Comments Range TROPONIN I (test 0.005 ng/mL See_Comment [Automated code = 8762248009) message] The system which generated this result [...] biotin. Lab Interpretation Normal (test code = 02639-8) [facility] Hospital[facility]-TERMINAL DOM-[id number] 01:31:28 Test Item Value Reference Range Interpretation Comments NT-proBNP (test code 496 pg/mL See_Comment H [Autom ated = 6251230415) message] The system which generated this result transmitted reference range : <=450. The reference range was not used to interpret this result as normal/abnormal . SHERON (test code = SHERON) Biotin has been reported to cause a negative bias, interpret results relative to patient's use of biotin. Lab Interpretation Abnormal (test code = 12466-9) [facility] METABOLIC PANEL (45913)2022-05-05 01:22:49 Test Item Value Reference Range Interpretation Comments NA (test code = 137 mmol/L 135-145 1695818374) K (test code = 4.2 mmol/L 3.5-5.0 8828797286) CL (test code = 101 mmol/L 98-108 5078383573) CO2 TOTAL (test code = 28 mmol/L 23-31 6932818238) AGAP (test code = 2-16 3647990035) BUN (test code = 26 mg/dL 7-23 H 3343276886) GLUCOSE (test code = 187 mg/dL 70-110 H 8453081981) CREATININE (test code = 0.61 mg/dL 0.50-1.04 3244852976) TOTAL BILI (test code = 0.5 mg/dL 0.1-1.6 1687465679) CALCIUM (test code = 8.9 mg/dL 8.6-10.6 4064752923) T PROTEIN (test code = 6.8 g/dL 6.3-8.2 6477703491) ALBUMIN (test code = 3.9 g/dL 3.5-5.0 4577782223) ALK PHOS (test code = 46 U/L 34-122 9512643179) ALTv (test code = 23 U/L 5-35 2-6) AST(SGOT) (test code = 38 U/L 13-40 7232582216) eGFR (test code = mL/min/1.73m2 8967499475) SHERON (test code = SHERON) Association of [...] tests). Lab Interpretation Abnormal (test code = 49294-2) [facility] WITH [id number] 01:10:25 Test Item Value Reference Range Interpretation [...] (test code = 51.8 fL 39.0-49.9 H 66540-2) RDW-CV (test code = 17.0 % 12.0-15.5 H 788-0) PLT (test code = See_Comment [Automated 777-3) message] The sy stem which generated this result transmitted reference range : 166 - 358 10*3/ ?L. The reference r aaron was not used to interpret this result as normal/abnormal . MPV (test code = 10.4 fL 9.5-12.9 43403-9) NRBC/100 WBC (test See_Comment [Automat ed code = 5176894722) message] The system which generated this result transmitted reference range : 0.0 - 10.0 /100 WBCs. The refer ence range was not u sed to interpret th is result as normal/abnormal . NRBC x10^3 (test code <0.01 See_Comment [Auto mated = 9645973350) message] The s ystem which generated this result transmitted reference range : 10*3/?L. The reference range was not used to interpret this result as normal/abnormal . GRAN MAT (NEUT) % 76.8 % (test code = 770-8) IMM GRAN % (test code 0.40 % = 1953341152) LYMPH % (test code = 14.5 % 736-9) MONO % (test code = 7.8 % 5905-5) EOS % (test code = 0.1 % 713-8) BASO % (test code = 0.4 % 706-2) GRAN MAT x10^3(ANC) 5.87 10*3/uL 1.88-7.09 (test code = 5985445197) IMM GRAN x10^3 (test 0.03 10*3/uL 0.00-0.06 code = 8596162574) LYMPH x10^3 (test code 1.11 10*3/uL 1.32-3.29 L = 731-0) MONO x10^3 (test code 0.60 10*3/uL 0.33-0.92 = 742-7) EOS x10^3 (test code = <0.03 0.03-0.39 L 711-2) BASO x10^3 (test code 0.03 10*3/uL 0.01-0.07 = 704-7) Lab Interpretation Abnormal (test code = 29687-9) [facility] WITH [id number] 14:51:56 Test Item Value Reference Range Interpretation Comments WBC (test code = See_Comment [Automated 5590-2) message] The sy stem which generated this result transmitted reference range : 4.30 - 11.10 10*3/?L. The reference range was not used to interpret this result as normal/abnormal . RBC (test code = See_Comment [Automated 329-8) message] The sy stem which generated this [...] RDW-SD (test code = 49.2 fL 39.0-49.9 39554-5) RDW-CV (test code = 15.7 % 12.0-15.5 H 788-0) PLT (test code = See_Comment [Automated 777-3) message] The sy stem which generated this result transmitted reference range : 166 - 358 10*3/ ?L. The reference r aaron was not used to interpret this result as normal/abnormal . MPV (test code = 9.6 fL 9.5-12.9 29158-1) NRBC/100 WBC (test See_Comment [Automat ed code = 9576474834) message] The system which generated this result transmitted reference range : 0.0 - 10.0 /100 WBCs. The refer ence range was not u sed to interpret th is result as normal/abnormal . NRBC x10^3 (test code <0.01 See_Comment [Auto mated = 9350077566) message] The s ystem which generated this result transmitted reference range : 10*3/?L. The reference range was not used to interpret this result as normal/abnormal . GRAN MAT (NEUT) % 71.9 % (test code = 770-8) IMM GRAN % (test code 0.50 % = 9522902347) LYMPH % (test code = 17.0 % 736-9) MONO % (test code = 8.0 % 5905-5) EOS % (test code = 1.7 % 713-8) BASO % (test code = 0.9 % 706-2) GRAN MAT x10^3(ANC) 4.14 10*3/uL 1.88-7.09 (test code = 1368363242) IMM GRAN x10^3 (test 0.03 10*3/uL 0.00-0.06 code = 1537259546) LYMPH x10^3 (test code 0.98 10*3/uL 1.32-3.29 L = 731-0) MONO x10^3 (test code 0.46 10*3/uL 0.33-0.92 = 742-7) EOS x10^3 (test code = 0.10 10*3/uL 0.03-0.39 711-2) BASO x10^3 (test code 0.05 10*3/uL 0.01-0.07 = 704-7) Lab Interpretation Abnormal (test code = 66424-8) [facility] [id number] 18:15:00 Test Item Value Reference Range Interpretation Comments Troponin-I (test code no gt See_Comment [Auto mated message] The = Troponin-I) system which g enerated this result transmit mary reference range : <=0.40. The reference r aaron was not used to interpr et this result as sp l/abnormal. [facility] [id number] 18:15:00 Test Item Value Reference Range Interpretation Comments BNP (test code = BNP) 79 [facility] [employer] [id number] 18:15:00 Test Item Value Reference Range Interpretation Comments Glucose Lvl (test code = Glucose Lvl) 152 70-99 [facility] [employer] [id number] 18:15:00 Test Item Value Reference Range Interpretation Comments BUN (test code = BUN) 17 7-22 [facility] [id number] 18:15:00 Test Item Value Reference Range Interpretation Comments Creatinine Lvl (test code = Creatinine 0.77 0.50-1.40 Lvl) [facility] [id number] 18:15:00 Test Item Value Reference Range Interpretation Comments Sodium Lvl (test code = Sodium Lvl) 139 135-145 [facility] [id number] 18:15:00 Test Item Value Reference Range Interpretation Comments Potassium Lvl (test code = Potassium 3.9 3.5-5.1 Lvl) [facility] [id number] 18:15:00 Test Item Value Reference Range Interpretation Comments Chloride Lvl (test code = Chloride Lvl) 105 95-109 [facility] [id number] 18:15:00 Test Item Value Reference Range Interpretation Comments CO2 (test code = CO2) 31 24-32 [facility] [id number] 18:15:00 Test Item Value Reference Range Interpretation Comments Calcium Lvl (test code = Calcium Lvl) 9.0 8.5-10.5 [facility] [id number] 18:15:00 Test Item Value Reference Range Interpretation Comments Total Protein (test code = Total 7.1 6.4-8.4 Protein) [facility] [id number] 18:15:00 Test Item Value Reference Range Interpretation Comments Albumin Lvl (test code = Albumin Lvl) 3.4 3.5-5.0 [facility] [employer]2020-03-02 18:15:00 Test Item Value Reference Range Interpretation Comments ALT (test code = ALT) 18 See_Comment [Auto mated message] The system which ge nerated this result transmit mary reference range : <=65. The reference range was not used to interpr et this result as sp l/abnormal. [employer]2020-03-02 18:15:00 Test Item Value Reference Range Interpretation Comments AST (test code = AST) 18 See_Comment [Auto mated message] The system which ge nerated this result transmit mary reference range : <=37. The reference range was not used to interpr et this result as sp l/abnormal. [employer]-03-02 18:15:00 Test Item Value Reference Range Interpretation Comments Alk Phos (test code = Alk Phos) 59 39-136 [facility]2020-03-02 18:15:00 Test Item Value Reference Range Interpretation Comments Bili Total (test code = Bili Total) 0.3 0.2-1.3 [facility] [employer]-03-02 18:15:00 Test Item Value Reference Range Interpretation Comments AGAP (test code = AGAP) 6.9 10.0-20.0 [facility] [employer]-03-02 18:15:00 Test Item Value Reference Range Interpretation Comments B/C Ratio (test code = B/C Ratio) 22 1 6-25 [facility] [employer]-03-02 18:15:00 Test Item Value Reference Range Interpretation Comments Globulin (test code = Globulin) 3.7 2.7-4.2 [facility]2020-03-02 18:15:00 Test Item Value Reference Range Interpretation Comments A/G Ratio (test code = A/G Ratio) 0.9 1 0.7-1.6 [facility] [employer]-03-02 18:15:00 Test Item Value Reference Range Interpretation Comments eGFR (test code = eGFR) 73 [facility] SioqgfcQWWHWSHCDQ2617-15-89 18:15:00 Test Item Value Reference Range Interpretation Comments WBC (test code = WBC) 5.9 3.7-10.4 [facility] TssoeryDUFZGCHYSS8518-25-39 18:15:00 Test Item Value Reference Range Interpretation Comments RBC (test code = RBC) 4.50 4.20-5.40 [place] [address]-03-02 18:15:00 Test Item Value Reference Range Interpretation Comments Hgb (test code = Hgb) 12.8 12.0-16.0 [place] [address]-03-02 18:15:00 Test Item Value Reference Range Interpretation Comments Hct (test code = Hct) 39.4 36.0-48.0 [place] [address]-03-02 18:15:00 Test Item Value Reference Range Interpretation Comments MCV (test code = MCV) 87.6 80.0-98.0 [place] [address]-03-02 18:15:00 Test Item Value Reference Range Interpretation Comments MCH (test code = MCH) 28.5 pg 27.0-31.0 [place] [address]-03-02 18:15:00 Test Item Value Reference Range Interpretation Comments MCHC (test code = MCHC) 32.5 32.0-36.0 [place] [address]-03-02 18:15:00 Test Item Value Reference Range Interpretation Comments RDW (test code = RDW) 15.2 11.5-14.5 [place] [address]-03-02 18:15:00 Test Item Value Reference Range Interpretation Comments Platelet (test code = Platelet) 270 133-450 [place] [address]-03-02 18:15:00 Test Item Value Reference Range Interpretation Comments MPV (test code = MPV) 8.2 7.4-10.4 [place] [address]-03-02 18:15:00 Test Item Value Reference Range Interpretation Comments PT (test code = PT) 12.6 s 12.0-14.7 [place] [address]-03-02 18:15:00 Test Item Value Reference Range Interpretation Comments INR (test code = INR) 0.94 1 0.85-1.17 [place] [address]-03-02 18:15:00 Test Item Value Reference Range Interpretation Comments PTT (test code = PTT) 28.4 s 22.9-35.8 [place] [address]-03-02 18:15:00 Test Item Value Reference Range Interpretation Comments Segs (test code = Segs) 66.1 45.0-75.0 [place] 482220-03-02 18:15:00 Test Item Value Reference Range Interpretation Comments Lymphocytes (test code = Lymphocytes) 23.9 20.0-40.0 [facility]KbuijuqVZPXOPOGPS3238-73-19 18:15:00 Test Item Value Reference Range Interpretation Comments Monocytes (test code = Monocytes) 7.5 2.0-12.0 [facility] CampusKjhcqcyZBVZYNVZGI2485-47-36 18:15:00 Test Item Value Reference Range Interpretation Comments Eosinophils (test code = 1.5 See_Comment [A utomated message] The Eosinophils) system which ge nerated this result tra nsmitted reference range : <=4.0. The reference r aaron was not used to int erpret this result as normal/abnormal . [facility] CampusMzrfftrRQZKUMFBET8584-05-90 18:15:00 Test Item Value Reference Range Interpretation Comments Basophils (test code = 1.0 See_Comment [Aut omated message] The Basophils) system which ge nerated this result tra nsmitted reference range : <=1.0. The reference r aaron was not used to int erpret this result as normal/abnormal . [facility] CampusSfoektqDHFVMLMKRZ0689-46-17 18:15:00 Test Item Value Reference Range Interpretation Comments Neutrophils # (test code = Neutrophils 3.9 1.5-8.1 #) [facility] CampusJrkdtfsRVVOMLRFWO8390-82-55 18:15:00 Test Item Value Reference Range Interpretation Comments Lymphocytes # (test code = Lymphocytes 1.4 1.0-5.5 #) [facility] CampusOjbziyrPICVCYYUDV9306-81-83 18:15:00 Test Item Value Reference Range Interpretation Comments Monocytes # (test code 0.4 See_Comment [Aut omated message] The = Monocytes #) system which generated this result tra nsmitted reference range : <=0.8. The reference r aaron was not used to int erpret this result as normal/abnormal . [facility] Camp[id number] 18:15:00 Test Item Value Reference Range Interpretation Comments Eosinophils # (test code 0.1 See_Comment [A utomated message] The = Eosinophils #) system whic h generated this result tra nsmitted reference range : <=0.5. The reference r aaron was not used to int erpret this result as normal/abnormal . [place] [id number] 18:15:00 Test Item Value Reference Range Interpretation Comments Basophils # (test code 0.1 See_Comment [Aut omated message] The = Basophils #) system which generated this result tra nsmitted reference range : <=0.2. The reference r aaron was not used to int erpret this result as normal/abnormal . [facility] [id number] 21:56:00 Test Item Value Reference Range Interpretation Comments Troponin-I (test code no gt See_Comment [Auto mated message] The = Troponin-I) system which g enerated this result transmit mary reference range : <=0.40. The reference r aaron was not used to interpr et this result as sp l/abnormal. [facility] [id number] 21:56:00 Test Item Value Reference Range Interpretation Comments Total CK (test code = Total CK) 72 12-191 [facility] [id number] 21:56:00 Test Item Value Reference Range Interpretation Comments BNP (test code = BNP) 90 [facility]2019-10-03 21:56:00 Test Item Value Reference Range Interpretation Comments Glucose Lvl (test code = Glucose Lvl) 106 70-99 [facility] [id number] 21:56:00 Test Item Value Reference Range Interpretation Comments BUN (test code = BUN) 14 7-22 [facility]2019-10-03 21:56:00 Test Item Value Reference Range Interpretation Comments Creatinine Lvl (test code = Creatinine 0.68 0.50-1.40 Lvl) [facility]2019-10-03 21:56:00 Test Item Value Reference Range Interpretation Comments Sodium Lvl (test code = Sodium Lvl) 139 135-145 [facility] [id number] 21:56:00 Test Item Value Reference Range Interpretation Comments Potassium Lvl (test code = Potassium 3.8 3.5-5.1 Lvl) [facility]2019-10-03 21:56:00 Test Item Value Reference Range Interpretation Comments Chloride Lvl (test code = Chloride Lvl) 102 95-109 [facility] [id number] 21:56:00 Test Item Value Reference Range Interpretation Comments CO2 (test code = CO2) 31 24-32 [facility]2019-10-03 21:56:00 Test Item Value Reference Range Interpretation Comments Calcium Lvl (test code = Calcium Lvl) 8.5 8.5-10.5 [facility]2019-10-03 21:56:00 Test Item Value Reference Range Interpretation Comments Total Protein (test code = Total 6.8 6.4-8.4 Protein) [facility]2019-10-03 21:56:00 Test Item Value Reference Range Interpretation Comments Albumin Lvl (test code = Albumin Lvl) 3.0 3.5-5.0 [facility]2019-10-03 21:56:00 Test Item Value Reference Range Interpretation Comments ALT (test code = ALT) 17 See_Comment [Auto mated message] The system which ge nerated this result transmit mary reference range : <=65. The reference range was not used to interpr et this result as sp l/abnormal. [facility]2019-10-03 21:56:00 Test Item Value Reference Range Interpretation Comments AST (test code = AST) 16 See_Comment [Auto mated message] The system which ge nerated this result transmit mary reference range : <=37. The reference range was not used to interpr et this result as sp l/abnormal. [facility]2019-10-03 21:56:00 Test Item Value Reference Range Interpretation Comments Alk Phos (test code = Alk Phos) 68 39-136 [facility]2019-10-03 21:56:00 Test Item Value Reference Range Interpretation Comments Bili Total (test code = Bili Total) 0.4 0.2-1.3 [facility]2019-10-03 21:56:00 Test Item Value Reference Range Interpretation Comments eGFR (test code = eGFR) 83 [facility]2019-10-03 21:56:00 Test Item Value Reference Range Interpretation Comments AGAP (test code = AGAP) 9.8 10.0-20.0 [facility]2019-10-03 21:56:00 Test Item Value Reference Range Interpretation Comments B/C Ratio (test code = B/C Ratio) 21 1 6-25 [facility]2019-10-03 21:56:00 Test Item Value Reference Range Interpretation Comments Globulin (test code = Globulin) 3.8 2.7-4.2 [facility]2019-10-03 21:56:00 Test Item Value Reference Range Interpretation Comments A/G Ratio (test code = A/G Ratio) 0.8 1 0.7-1.6 [facility] CampusEisrvalYBXRCQRVIO5423-15-93 21:56:00 Test Item Value Reference Range Interpretation Comments WBC (test code = WBC) 5.8 3.7-10.4 [facility] CampusPbywoplMHIDDILRWC2699-65-60 21:56:00 Test Item Value Reference Range Interpretation Comments RBC (test code = RBC) 4.23 4.20-5.40 [facility] CampusHvfywqvLUPQLQVKHJ9110-28-92 21:56:00 Test Item Value Reference Range Interpretation Comments Hgb (test code = Hgb) 11.8 12.0-16.0 [facility] CampusQfrofwsBTCOWLHVIY4135-24-93 21:56:00 Test Item Value Reference Range Interpretation Comments Hct (test code = Hct) 35.6 36.0-48.0 [facility] CampusRnfdbgnMHZFQEAKWL8174-28-43 21:56:00 Test Item Value Reference Range Interpretation Comments MCV (test code = MCV) 84.1 80.0-98.0 [facility] CampusIiogtolFGXXCMLFFK5835-61-20 21:56:00 Test Item Value Reference Range Interpretation Comments MCH (test code = MCH) 27.9 pg 27.0-31.0 [facility] CampusKbnuecvIWLZBEPGIR0194-97-79 21:56:00 Test Item Value Reference Range Interpretation Comments MCHC (test code = MCHC) 33.2 32.0-36.0 [facility] CampusIqqjxqrPOBXHGGMEK1449-83-81 21:56:00 Test Item Value Reference Range Interpretation Comments RDW (test code = RDW) 15.1 11.5-14.5 [facility] CampusNhifqnwKHSMPKBVPF6580-02-11 21:56:00 Test Item Value Reference Range Interpretation Comments Platelet (test code = Platelet) 256 133-450 [facility] CampusUjlhbwvBQYUAHIFUW5695-92-43 21:56:00 Test Item Value Reference Range Interpretation Comments MPV (test code = MPV) 7.6 7.4-10.4 [facility] CampusDsmcfujMYYEREXSKK2700-86-62 21:56:00 Test Item Value Reference Range Interpretation Comments PT (test code = PT) 13.3 s 12.0-14.7 [facility] CampusHsonfneJZSQDMNNDZ8278-43-05 21:56:00 Test Item Value Reference Range Interpretation Comments INR (test code = INR) 1.03 1 0.85-1.17 [facility] CampusQkbydzbKWSPMIDARC8639-11-85 21:56:00 Test Item Value Reference Range Interpretation Comments PTT (test code = PTT) 31.7 s 22.9-35.8 [facility] CampusZgzhzcpAZMZTYFNVW2854-00-24 21:56:00 Test Item Value Reference Range Interpretation Comments Segs (test code = Segs) 55.6 45.0-75.0 [facility] CampusQpzsewlFBFYVTSOCA1258-97-64 21:56:00 Test Item Value Reference Range Interpretation Comments Lymphocytes (test code = Lymphocytes) 28.8 20.0-40.0 [facility] CampusHtijohaDHBITSDBQA2787-89-89 21:56:00 Test Item Value Reference Range Interpretation Comments Monocytes (test code = Monocytes) 9.9 2.0-12.0 [facility] CampusPmeaftnCUGRUUYZXV7132-20-47 21:56:00 Test Item Value Reference Range Interpretation Comments Eosinophils (test code = 4.5 See_Comment [A utomated message] The Eosinophils) system which ge nerated this result tra nsmitted reference range : <=4.0. The reference r aaron was not used to int erpret this result as normal/abnormal . [facility] CampusNectnlcZDXZEKPAEU6133-37-89 21:56:00 Test Item Value Reference Range Interpretation Comments Basophils (test code = 1.2 See_Comment [Aut omated message] The Basophils) system which ge nerated this result tra nsmitted reference range : <=1.0. The reference r aaron was not used to int erpret this result as normal/abnormal . [facility] CampusYijebpiQTEAMSGYDO8767-29-20 21:56:00 Test Item Value Reference Range Interpretation Comments Neutrophils # (test code = Neutrophils 3.2 1.5-8.1 #) [facility] CampusQcqrmrvEUXOMDUKOM1740-61-96 21:56:00 Test Item Value Reference Range Interpretation Comments Lymphocytes # (test code = Lymphocytes 1.7 1.0-5.5 #) [facility] CampusMnhmzxmKIGGVPUHVS0337-42-05 21:56:00 Test Item Value Reference Range Interpretation Comments Monocytes # (test code 0.6 See_Comment [Aut omated message] The = Monocytes #) system which generated this result tra nsmitted reference range : <=0.8. The reference r aaron was not used to int erpret this result as normal/abnormal . [facility]YadtorhDCIZICSPDO7300-64-20 21:56:00 Test Item Value Reference Range Interpretation Comments Eosinophils # (test code 0.3 See_Comment [A utomated message] The = Eosinophils #) system whic h generated this result tra nsmitted reference range : <=0.5. The reference r aaron was not used to int erpret this result as normal/abnormal . [facility] CampusNxxvtblYOSCZVTQDT4392-70-69 21:56:00 Test Item Value Reference Range Interpretation Comments Basophils # (test code 0.1 See_Comment [Aut omated message] The = Basophils #) system which generated this result tra nsmitted reference range : <=0.2. The reference r aaron was not used to int erpret this result as normal/abnormal . [facility] CenterCARDIAC [id number] 14:14:00 Test Item Value Reference Range Interpretation Comments Troponin-I (test code no gt See_Comment [Auto mated message] The = Troponin-I) system which g enerated this result transmit mary reference range : <=0.40. The reference r aaron was not used to interpr et this result as sp l/abnormal. [facility] CenterGprjcvoWLYNPXMZBS0777-58-78 14:14:00 Test Item Value Reference Range Interpretation Comments D-Dimer (test code = D-Dimer) 2.41 [facility] [id number] 20:50:00 Test Item Value Reference Range Interpretation Comments UA Sq Epi (test code = UA Sq Epi) None Seen [facility] [id number] 20:50:00 Test Item Value Reference Range Interpretation Comments UA Urobilinogen (test code = UA <=1.0 mg/dL 0.1-1.0 Urobilinogen) [facility] [id number] 20:50:00 Test Item Value Reference Range Interpretation Comments UA Color (test code = UA Color) Ltyellow [facility] [id number] 20:50:00 Test Item Value Reference Range Interpretation Comments UA Blood (test code = Negative (05/21/18 3:50 UA Blood) PM) [facility] [id number] 20:50:00 Test Item Value Reference Range Interpretation Comments UA Bili (test code = Negative *NA*(05/21/18 UA Bili) 3:50 PM) [facility] [id number] 20:50:00 Test Item Value Reference Range Interpretation Comments UA Glucose (test code = UA Negative mg/dL Glucose) [facility] [id number] 20:50:00 Test Item Value Reference Range Interpretation Comments UA Ketones (test code = UA Negative mg/dL Ketones) [facility] [id number] 20:50:00 Test Item Value Reference Range Interpretation Comments UA Nitrite (test code Negative (05/21/18 3:50 = UA Nitrite) PM) [facility] [id number] 20:50:00 Test Item Value Reference Range Interpretation Comments UA Leuk Est (test Negative (05/21/18 3:50 code = UA Leuk Est) PM) [facility] [id number] 20:50:00 Test Item Value Reference Range Interpretation Comments UA WBC (test code = no gt See_Comment [Automa mary message] The UA WBC) system which ge nerated this result transmit mary reference range : <=5. The reference range was not used to interpr et this result as sp l/abnormal. [facility] [id number] 20:50:00 Test Item Value Reference Range Interpretation Comments UA pH (test code = UA pH) 8.0 1 5.0-8.0 [facility] [id number] 20:50:00 Test Item Value Reference Range Interpretation Comments UA Protein (test code = UA Negative mg/dL Protein) [facility] [id number] 20:50:00 Test Item Value Reference Range Interpretation Comments UA Spec Grav (test code = UA Spec 1.003 1 Grav) [facility] [id number] 20:50:00 Test Item Value Reference Range Interpretation Comments UA Turbidity (test code = Clear (05/21/18 3:50 UA Turbidity) PM) [facility] [id number] 19:25:00 Test Item Value Reference Range Interpretation Comments Troponin-I (test code no gt See_Comment [Auto mated message] The = Troponin-I) system which g enerated this result transmit mary reference range : <=0.40. The reference r aaron was not used to interpr et this result as sp l/abnormal. [facility] [employer] [id number] 19:25:00 Test Item Value Reference Range Interpretation Comments Total CK (test code = Total CK) 64 12-191 [facility] [employer] [id number] 19:25:00 Test Item Value Reference Range Interpretation Comments CK MB (test code = CK MB) 1.5 0.5-3.6 [facility] [employer]annApex[employer]AC [id number] 19:25:00 Test Item Value Reference Range Interpretation Comments BNP (test code = BNP) 60 [facility] [id number] 19:25:00 Test Item Value Reference Range Interpretation Comments CK MB Index (test 2.3 1 See_Comment [Automate d message] The code = CK MB Index) system w [facility] generated this result transmit mary reference range : <=2.5. The reference range was not used to interpr et this result as sp l/abnormal. [employer] [id number] 19:25:00 Test Item Value Reference Range Interpretation Comments eGFR (test code = eGFR) 86 [facility] [employer] [id number] 19:25:00 Test Item Value Reference Range Interpretation Comments Calcium Lvl (test code = Calcium Lvl) 8.6 8.5-10.5 [facility] [employer] [id number] 19:25:00 Test Item Value Reference Range Interpretation Comments Total Protein (test code = Total 7.0 6.4-8.4 Protein) [facility] [employer] [id number] 19:25:00 Test Item Value Reference Range Interpretation Comments ALT (test code = ALT) 19 See_Comment [Auto mated message] The system which ge nerated this result transmit mary reference range : <=65. The reference range was not used to interpr et this result as sp l/abnormal. [employer] [id number] 19:25:00 Test Item Value Reference Range Interpretation Comments Albumin Lvl (test code = Albumin Lvl) 3.5 3.5-5.0 [facility] [employer] [id number] 19:25:00 Test Item Value Reference Range Interpretation Comments Alk Phos (test code = Alk Phos) 52 39-136 [facility]2018-06-26 19:25:00 Test Item Value Reference Range Interpretation Comments Bili Total (test code = Bili Total) 0.2 0.2-1.3 [facility]2018-06-26 19:25:00 Test Item Value Reference Range Interpretation Comments AST (test code = AST) 10 See_Comment [Auto mated message] The system which ge nerated this result transmit mary reference range : <=37. The reference range was not used to interpr et this result as sp l/abnormal. [facility]2018-06-26 19:25:00 Test Item Value Reference Range Interpretation Comments AGAP (test code = AGAP) 9.7 10.0-20.0 [facility]2018-06-26 19:25:00 Test Item Value Reference Range Interpretation Comments B/C Ratio (test code = B/C Ratio) 21 1 6-25 [facility]2018-06-26 19:25:00 Test Item Value Reference Range Interpretation Comments A/G Ratio (test code = A/G Ratio) 1.0 1 0.7-1.6 [facility]2018-06-26 19:25:00 Test Item Value Reference Range Interpretation Comments Globulin (test code = Globulin) 3.5 2.7-4.2 [facility]2018-06-26 19:25:00 Test Item Value Reference Range Interpretation Comments Glucose Lvl (test code = Glucose Lvl) 110 70-99 [facility]2018-06-26 19:25:00 Test Item Value Reference Range Interpretation Comments BUN (test code = BUN) 13 7-22 [facility]2018-06-26 19:25:00 Test Item Value Reference Range Interpretation Comments Potassium Lvl (test code = Potassium 3.7 3.5-5.1 Lvl) [facility]2018-06-26 19:25:00 Test Item Value Reference Range Interpretation Comments Creatinine Lvl (test code = Creatinine 0.61 0.50-1.40 Lvl) [facility]2018-06-26 19:25:00 Test Item Value Reference Range Interpretation Comments Sodium Lvl (test code = Sodium Lvl) 142 135-145 [facility]2018-06-26 19:25:00 Test Item Value Reference Range Interpretation Comments Chloride Lvl (test code = Chloride Lvl) 106 95-109 [facility]2018-06-26 19:25:00 Test Item Value Reference Range Interpretation Comments CO2 (test code = CO2) 30 24-32 [facility] [id number] 19:25:00 Test Item Value Reference Range Interpretation Comments MPV (test code = MPV) 7.9 7.4-10.4 [facility] CampusNakfbojCLBBZXOVPC6090-10-09 19:25:00 Test Item Value Reference Range Interpretation Comments Platelet (test code = Platelet) 255 133-450 [facility] Ca[id number] 19:25:00 Test Item Value Reference Range Interpretation Comments RDW (test code = RDW) 15.0 11.5-14.5 [facility] [id number] 19:25:00 Test Item Value Reference Range Interpretation Comments MCH (test code = MCH) 29.4 pg 27.0-31.0 [facility] Camp[id number] 19:25:00 Test Item Value Reference Range Interpretation Comments Hgb (test code = Hgb) 12.5 12.0-16.0 [facility] CampusHjmlpssACQQPDGCTR0329-76-49 19:25:00 Test Item Value Reference Range Interpretation Comments RBC (test code = RBC) 4.27 4.20-5.40 [facility] Camp[id number] 19:25:00 Test Item Value Reference Range Interpretation Comments MCHC (test code = MCHC) 33.3 32.0-36.0 [facility] CampusJemjybiRWSYPBIPFF7964-09-22 19:25:00 Test Item Value Reference Range Interpretation Comments MCV (test code = MCV) 88.3 80.0-98.0 [facility] C[id number] 19:25:00 Test Item Value Reference Range Interpretation Comments Hct (test code = Hct) 37.7 36.0-48.0 [facility] CampusHnfcqriGXBLHRJCUS9918-88-09 19:25:00 Test Item Value Reference Range Interpretation Comments WBC (test code = WBC) 6.6 3.7-10.4 [facility] Camp[id number] 19:25:00 Test Item Value Reference Range Interpretation Comments Monocytes # (test code 0.6 See_Comment [Aut omated message] The = Monocytes #) system which generated this result tra nsmitted reference range : <=0.8. The reference r aaron was not used to int erpret this result as normal/abnormal . [facility] Camp[id number] 19:25:00 Test Item Value Reference Range Interpretation Comments Eosinophils # (test code 0.2 See_Comment [A utomated message] The = Eosinophils #) system whic h generated this result tra nsmitted reference range : <=0.5. The reference r aaron was not used to int erpret this result as normal/abnormal . [facility] C[id number] 19:25:00 Test Item Value Reference Range Interpretation Comments Segs-Bands # (test code = Segs-Bands #) 4.3 1.5-8.1 [facility] CampusWgccrfkJOEEGDGJYL1056-61-75 19:25:00 Test Item Value Reference Range Interpretation Comments Basophils (test code = 0.6 See_Comment [Aut omated message] The Basophils) system which ge nerated this result tra nsmitted reference range : <=1.0. The reference r aaron was not used to int erpret this result as normal/abnormal . [facility] [id number] 19:25:00 Test Item Value Reference Range Interpretation Comments Lymphocytes # (test code = Lymphocytes 1.5 1.0-5.5 #) [facility] Camp[id number] 19:25:00 Test Item Value Reference Range Interpretation Comments Eosinophils (test code = 3.5 See_Comment [A utomated message] The Eosinophils) system which ge nerated this result tra nsmitted reference range : <=4.0. The reference r aaron was not used to int erpret this result as normal/abnormal . [facility] CampusNxvhlybUBNHZOVZOB4713-13-83 19:25:00 Test Item Value Reference Range Interpretation Comments Monocytes (test code = Monocytes) 9.7 2.0-12.0 [facility] Camp[id number] 19:25:00 Test Item Value Reference Range Interpretation Comments Segs (test code = Segs) 64.3 45.0-75.0 [facility] Camp[id number] 19:25:00 Test Item Value Reference Range Interpretation Comments Lymphocytes (test code = Lymphocytes) 21.9 20.0-40.0 [facility] [employer]annCARMTEM LimitedAC [id number] 01:44:00 Test Item Value Reference Range Interpretation Comments CK MB Index (test 3.1 1 See_Comment [Automate d message] The code = CK MB Index) system w [facility] generated this result transmit mary reference range : <=2.5. The reference range was not used to interpr et this result as sp l/abnormal. [facility] [employer] [id number] 01:44:00 Test Item Value Reference Range Interpretation Comments Troponin-I (test code no gt See_Comment [Auto mated message] The = Troponin-I) system which g enerated this result transmit mary reference range : <=0.40. The reference r aaron was not used to interpr et this result as sp l/abnormal. [facility] [employer]2018-03-22 01:44:00 Test Item Value Reference Range Interpretation Comments CK MB (test code = CK MB) 1.3 0.5-3.6 [facility] [employer] [id number] 01:44:00 Test Item Value Reference Range Interpretation Comments Total CK (test code = Total CK) 42 12-191 [facility]2018-03-22 01:44:00 Test Item Value Reference Range Interpretation Comments Globulin (test code = Globulin) 3.4 2.7-4.2 [facility]2018-03-22 01:44:00 Test Item Value Reference Range Interpretation Comments A/G Ratio (test code = A/G Ratio) 0.9 1 0.7-1.6 [facility] [employer] [id number] 01:44:00 Test Item Value Reference Range Interpretation Comments AGAP (test code = AGAP) 9.4 10.0-20.0 [employer]2018-03-22 01:44:00 Test Item Value Reference Range Interpretation Comments B/C Ratio (test code = B/C Ratio) 20 1 6-25 [employer]2018-03-22 01:44:00 Test Item Value Reference Range Interpretation Comments eGFR (test code = eGFR) 84 [facility]2018-03-22 01:44:00 Test Item Value Reference Range Interpretation Comments Bili Total (test code = Bili Total) 0.3 0.2-1.3 [facility]2018-03-22 01:44:00 Test Item Value Reference Range Interpretation Comments Alk Phos (test code = Alk Phos) 60 39-136 [facility]2018-03-22 01:44:00 Test Item Value Reference Range Interpretation Comments Creatinine Lvl (test code = Creatinine 0.66 0.50-1.40 Lvl) [facility]2018-03-22 01:44:00 Test Item Value Reference Range Interpretation Comments CO2 (test code = CO2) 32 24-32 [facility]2018-03-22 01:44:00 Test Item Value Reference Range Interpretation Comments ALT (test code = ALT) 27 See_Comment [Auto mated message] The system which ge nerated this result transmit mary reference range : <=65. The reference range was not used to interpr et this result as sp l/abnormal. [facility]2018-03-22 01:44:00 Test Item Value Reference Range Interpretation Comments Albumin Lvl (test code = Albumin Lvl) 3.0 3.5-5.0 [facility] [facility]00 Test Item Value Reference Range Interpretation Comments AST (test code = AST) 16 See_Comment [Auto mated message] The system which ge nerated this result transmit mary reference range : <=37. The reference range was not used to interpr et this result as sp l/abnormal. [facility]2018-03-22 01:44:00 Test Item Value Reference Range Interpretation Comments Total Protein (test code = Total 6.4 6.4-8.4 Protein) [facility]2018-03-22 01:44:00 Test Item Value Reference Range Interpretation Comments Calcium Lvl (test code = Calcium Lvl) 7.5 8.5-10.5 [facility]2018-03-22 01:44:00 Test Item Value Reference Range Interpretation Comments Potassium Lvl (test code = Potassium 3.4 3.5-5.1 Lvl) [facility]2018-03-22 01:44:00 Test Item Value Reference Range Interpretation Comments Chloride Lvl (test code = Chloride Lvl) 104 95-109 [facility]2018-03-22 01:44:00 Test Item Value Reference Range Interpretation Comments Sodium Lvl (test code = Sodium Lvl) 142 135-145 [facility]2018-03-22 01:44:00 Test Item Value Reference Range Interpretation Comments BUN (test code = BUN) 13 7-22 [facility]2018-03-22 01:44:00 Test Item Value Reference Range Interpretation Comments Glucose Lvl (test code = Glucose Lvl) 86 70-99 [id number] 01:44:00 Test Item Value Reference Range Interpretation Comments Basophils # (test code 0.1 See_Comment [Aut omated message] The = Basophils #) system which generated this result tra nsmitted reference range : <=0.2. The reference r aaron was not used to int erpret this result as normal/abnormal . [facility] CampusPsmfnvlNPMIVGGSEJ2432-41-86 01:44:00 Test Item Value Reference Range Interpretation Comments Eosinophils # (test code 0.3 See_Comment [A utomated message] The = Eosinophils #) system whic h generated this result tra nsmitted reference range : <=0.5. The reference r aaron was not used to int erpret this result as normal/abnormal . [facility] CampusPwojwnrITGQKPVAEV8892-09-31 01:44:00 Test Item Value Reference Range Interpretation Comments Eosinophils (test code = 6.6 See_Comment [A utomated message] The Eosinophils) system which ge nerated this result tra nsmitted reference range : <=4.0. The reference r aaron was not used to int erpret this result as normal/abnormal . [facility] CampusDerqmlwIGEETMUEXJ0796-16-54 01:44:00 Test Item Value Reference Range Interpretation Comments Monocytes (test code = Monocytes) 11.5 2.0-12.0 [facility] CampusAqlpacsBIORFHFNEM0192-60-54 01:44:00 Test Item Value Reference Range Interpretation Comments Segs-Bands # (test code = Segs-Bands #) 1.9 1.5-8.1 [facility] CampusNmvdrvgGNABCUWNID5251-31-45 01:44:00 Test Item Value Reference Range Interpretation Comments Basophils (test code = 1.3 See_Comment [Aut omated message] The Basophils) system which ge nerated this result tra nsmitted reference range : <=1.0. The reference r aaron was not used to int erpret this result as normal/abnormal . [facility] CampusVlexgpqCSYTJASHCD9922-30-59 01:44:00 Test Item Value Reference Range Interpretation Comments Monocytes # (test code 0.5 See_Comment [Aut omated message] The = Monocytes #) system which generated this result tra nsmitted reference range : <=0.8. The reference r aaron was not used to int erpret this result as normal/abnormal . [facility] CampusAjpervpPGGKMFZMGR1516-62-84 01:44:00 Test Item Value Reference Range Interpretation Comments Lymphocytes # (test code = Lymphocytes 1.8 1.0-5.5 #) [facility] CampusHlpbavsFHLYCEBTTD2128-86-53 01:44:00 Test Item Value Reference Range Interpretation Comments Lymphocytes (test code = Lymphocytes) 40.2 20.0-40.0 [facility] CampusZxjyvhhYIBCFCPRLG7392-06-85 01:44:00 Test Item Value Reference Range Interpretation Comments Segs (test code = Segs) 40.4 45.0-75.0 [facility] CampusDsblfubIUIGTXTWMK4906-16-57 01:44:00 Test Item Value Reference Range Interpretation Comments MPV (test code = MPV) 8.2 7.4-10.4 [facility] CampusHktjqzuRLURDXVAYJ6683-05-43 01:44:00 Test Item Value Reference Range Interpretation Comments Platelet (test code = Platelet) 205 133-450 [facility] CampusWrdzlfcLTITLSBGTM0045-25-73 01:44:00 Test Item Value Reference Range Interpretation Comments RDW (test code = RDW) 14.2 11.5-14.5 [facility] CampusPhtxzvvRYDKZTKLNE9490-54-91 01:44:00 Test Item Value Reference Range Interpretation Comments MCHC (test code = MCHC) 33.9 32.0-36.0 [facility] CampusJjjtsgeAGKRUXJGNM3196-53-03 01:44:00 Test Item Value Reference Range Interpretation Comments Hct (test code = Hct) 35.8 36.0-48.0 [facility] CampusCavnineRQFTCPOMXY4114-67-64 01:44:00 Test Item Value Reference Range Interpretation Comments MCV (test code = MCV) 90.2 80.0-98.0 [facility] CampusIjwhryvYFUKTTPKRW5952-13-14 01:44:00 Test Item Value Reference Range Interpretation Comments Hgb (test code = Hgb) 12.2 12.0-16.0 [facility] CampusYidsqowGBPCBXHDLY0569-54-09 01:44:00 Test Item Value Reference Range Interpretation Comments RBC (test code = RBC) 3.97 4.20-5.40 [facility] CampusPwlvvkyIINVMIOXPR8803-53-91 01:44:00 Test Item Value Reference Range Interpretation Comments WBC (test code = WBC) 4.6 3.7-10.4 [facility] CampusVedyudzOBQMOSSZIA8697-48-45 01:44:00 Test Item Value Reference Range Interpretation Comments MCH (test code = MCH) 30.6 pg 27.0-31.0 [facility] [id number] 01:44:00 Test Item Value Reference Range Interpretation Comments UA Urobilinogen (test code = UA <=1.0 mg/dL 0.1-1.0 Urobilinogen) [facility] [id number] 01:44:00 Test Item Value Reference Range Interpretation Comments UA Bili (test code = Negative *NA*(02/13/18 UA Bili) 8:44 PM) [facility] [id number] 01:44:00 Test Item Value Reference Range Interpretation Comments UA Ketones (test code = UA Negative mg/dL Ketones) [facility] [id number] 01:44:00 Test Item Value Reference Range Interpretation Comments UA WBC (test code = 3 See_Comment [Automa mary message] The UA WBC) system which ge nerated this result transmit mary reference range : <=5. The reference range was not used to interpr et this result as sp l/abnormal. [facility] [id number] 01:44:00 Test Item Value Reference Range Interpretation Comments UA Nitrite (test code Negative (02/13/18 8:44 = UA Nitrite) PM) [facility] [id number] 01:44:00 Test Item Value Reference Range Interpretation Comments UA Blood (test code = Negative (02/13/18 8:44 UA Blood) PM) [facility] [id number] 01:44:00 Test Item Value Reference Range Interpretation Comments UA Leuk Est (test Negative (02/13/18 8:44 code = UA Leuk Est) PM) [facility] [id number] 01:44:00 Test Item Value Reference Range Interpretation Comments UA Sq Epi (test code = UA Sq Epi) None Seen [facility] [id number] 01:44:00 Test Item Value Reference Range Interpretation Comments UA RBC (test code = 1 See_Comment [Automa mary message] The UA RBC) system which ge nerated this result transmit mary reference range : <=2. The reference range was not used to interpr et this result as sp l/abnormal. [facility] [id number] 01:44:00 Test Item Value Reference Range Interpretation Comments UA Turbidity (test code = Clear (02/13/18 8:44 UA Turbidity) PM) [facility] [id number] 01:44:00 Test Item Value Reference Range Interpretation Comments UA Color (test code = Yellow *NA*(02/13/18 UA Color) 8:44 PM) [facility] [id number] 01:44:00 Test Item Value Reference Range Interpretation Comments UA pH (test code = UA pH) 7.0 1 5.0-8.0 [facility] [id number] 01:44:00 Test Item Value Reference Range Interpretation Comments UA Spec Grav (test code = UA Spec 1.005 1 Grav) [facility] [id number] 01:44:00 Test Item Value Reference Range Interpretation Comments UA Protein (test code = UA Negative mg/dL Protein) [facility] [id number] 01:44:00 Test Item Value Reference Range Interpretation Comments UA Glucose (test code = UA Negative mg/dL Glucose) [facility]AznowkbGRFEKKMSAGLS0664-57-41 19:58:00 Test Item Value Reference Range Interpretation Comments AGAP (test code = AGAP) 7.0 10.0-20.0 [facility] HospitalAapndtxNXNGGDPOMPOC3820-60-20 19:58:00 Test Item Value Reference Range Interpretation Comments eGFR (test code = eGFR) 84 [facility] HospitalUfqyxvxKAMRNINDAOMN7550-14-85 19:58:00 Test Item Value Reference Range Interpretation Comments Potassium Lvl (test code = Potassium 5.0 3.5-5.1 Lvl) [facility] HospitalPkoqznsAELFPVFLRAMX4464-91-46 19:58:00 Test Item Value Reference Range Interpretation Comments Sodium Lvl (test code = Sodium Lvl) 137 135-145 [facility] HospitalAsnmsycKFMTEDWZAQRD2761-83-47 19:58:00 Test Item Value Reference Range Interpretation Comments Chloride Lvl (test code = Chloride Lvl) 103 95-109 [facility] HospitalXnorhqxTWYWSGMJRRTT8723-02-37 19:58:00 Test Item Value Reference Range Interpretation Comments Creatinine Lvl (test code = Creatinine 0.70 0.50-1.40 Lvl) [facility] HospitalVyoppvsVJXLOETXMFFQ4097-08-36 19:58:00 Test Item Value Reference Range Interpretation Comments Glucose Lvl (test code = Glucose Lvl) 101 70-99 [facility] HospitalNabardnDCJXFOGENAYD0312-41-65 19:58:00 Test Item Value Reference Range Interpretation Comments BUN (test code = BUN) 10 7-22 [facility] HospitalZcxbbjrCNXSXJVRAYCT5847-14-87 19:58:00 Test Item Value Reference Range Interpretation Comments Calcium Lvl (test code = Calcium Lvl) 8.9 8.5-10.5 [facility] HospitalQtwftdoCPZDALYLDDJG0715-59-28 19:58:00 Test Item Value Reference Range Interpretation Comments CO2 (test code = CO2) 32 24-32 [facility] CampusUthcxpqAOUXLPAETH4190-67-61 19:58:00 Test Item Value Reference Range Interpretation Comments Segs-Bands # (test code = Segs-Bands #) 5.6 1.5-8.1 [facility] CampusLoilcgcKZVBYPZIUY9341-30-80 19:58:00 Test Item Value Reference Range Interpretation Comments Basophils (test code = 1.1 See_Comment [Aut omated message] The Basophils) system which ge nerated this result tra nsmitted reference range : <=1.0. The reference r aaron was not used to int erpret this result as normal/abnormal . [facility] CampusVagdrfgPLRBQRTRGO2678-45-42 19:58:00 Test Item Value Reference Range Interpretation Comments Lymphocytes # (test code = Lymphocytes 1.9 1.0-5.5 #) [facility] CampusHwmhbeyHDCKQBWRPB1647-33-65 19:58:00 Test Item Value Reference Range Interpretation Comments Monocytes # (test code 0.8 See_Comment [Aut omated message] The = Monocytes #) system which generated this result tra nsmitted reference range : <=0.8. The reference r aaron was not used to int erpret this result as normal/abnormal . [facility] CampusWuxpaspRKZHSQLJPS9031-50-80 19:58:00 Test Item Value Reference Range Interpretation Comments Eosinophils # (test code 0.2 See_Comment [A utomated message] The = Eosinophils #) system whic h generated this result tra nsmitted reference range : <=0.5. The reference r aaron was not used to int erpret this result as normal/abnormal . [facility] CampusQsocyabAVAGTNSYCD5963-96-75 19:58:00 Test Item Value Reference Range Interpretation Comments Basophils # (test code 0.1 See_Comment [Aut omated message] The = Basophils #) system which generated this result tra nsmitted reference range : <=0.2. The reference r aaron was not used to int erpret this result as normal/abnormal . [facility] CampusRaphtuwPOPNVMTKYE2483-35-89 19:58:00 Test Item Value Reference Range Interpretation Comments Eosinophils (test code = 2.6 See_Comment [A utomated message] The Eosinophils) system which ge nerated this result tra nsmitted reference range : <=4.0. The reference r aaron was not used to int erpret this result as normal/abnormal . [facility] CampusBoirosvHHJTUTWOXP1901-94-31 19:58:00 Test Item Value Reference Range Interpretation Comments Monocytes (test code = Monocytes) 9.6 2.0-12.0 [facility] CampusRoqzkevQGQAOKMRXH2213-20-20 19:58:00 Test Item Value Reference Range Interpretation Comments Lymphocytes (test code = Lymphocytes) 21.6 20.0-40.0 [facility] CampusHpmrflnOKLMVOYYQR2755-87-18 19:58:00 Test Item Value Reference Range Interpretation Comments Segs (test code = Segs) 65.1 45.0-75.0 [facility] CampusLjkibouLEQSRJDBQB7289-85-62 19:58:00 Test Item Value Reference Range Interpretation Comments MPV (test code = MPV) 7.6 7.4-10.4 [facility] CampusKfopxhzIHZYYWRSOM0082-32-29 19:58:00 Test Item Value Reference Range Interpretation Comments RDW (test code = RDW) 13.7 11.5-14.5 [facility] CampusUfljyrvAUEJCMAERX4527-99-13 19:58:00 Test Item Value Reference Range Interpretation Comments Platelet (test code = Platelet) 343 133-450 [facility] CampusYprbvpdYETLGCMTRF9963-40-81 19:58:00 Test Item Value Reference Range Interpretation Comments WBC (test code = WBC) 8.6 3.7-10.4 [facility] CampusYgfjinzQNXHGBTPBA8518-25-81 19:58:00 Test Item Value Reference Range Interpretation Comments Hgb (test code = Hgb) 12.8 12.0-16.0 [facility] CampusHdpzohxSEHMOZDTUW2620-22-66 19:58:00 Test Item Value Reference Range Interpretation Comments RBC (test code = RBC) 4.53 4.20-5.40 [facility] CampusDmepzwnSHMLHHDRPJ6554-00-45 19:58:00 Test Item Value Reference Range Interpretation Comments MCV (test code = MCV) 87.8 80.0-98.0 [facility] CampusMpplinjBRPVZHOUQA3354-18-88 19:58:00 Test Item Value Reference Range Interpretation Comments Hct (test code = Hct) 39.7 36.0-48.0 [facility] CampusDuoslceNFRBICCZMI0944-42-07 19:58:00 Test Item Value Reference Range Interpretation Comments MCHC (test code = MCHC) 32.1 32.0-36.0 [facility] CampusJesoxvhAKGFFURRUQ6907-95-79 19:58:00 Test Item Value Reference Range Interpretation Comments MCH (test code = MCH) 28.2 pg 27.0-31.0 [facility] History and Physical Notes Date/Time Note Provider Source 2022-09-14 Shannan Bui MD: PERFORM, SIGN, VERI FYJyothient 21:17:00-0 Display: History and PhysicalAuthored Date: 0:00 [id number] of Present IllnessDat e of admission: 2Reason [facility] is an 81 y/o woman with mi ld aortic stenosis, hypertension, asthma who is mark ng admitted at the request of the her primary pulmo nary doctor for evaluation for possible pneumonia. Matt angel reports having pain in the right 'shoulder blade ' where the 'mass is'. She is also complaining of LE vero ma that has progressed during this time period. She repo rts also having a 'mass' in the 'right front lung'. Last week she has fever of 100.X. NO cough reported or any pay[place] st pain at this time. Has been on Augmentin, as outpatie nt, this has not helped with symptoms.Patient reports sig nificant weight loss from 118 to about 97 now unintention ally. Denies any blood in stool. Past colonoscopy was normal. Reports having distant history of tobacco in rolo rly 50 years.Review of SystemsCardiovascular: Negative.Gastrointestinal: Negative.Health StatusAllergies:Allergic Reactions (Selected)Sev erity Not DocumentedAlbuterol- No reactions were documented.Augmentin- No reactions were document ed.Dust- No reactions were documented.Iodine- No reaction s were documented.Levaquin- No reactions were documente d.Sulfa drugs- No reactions were documented.,Allergies ( 6) Active Severity Reactionalbuterol None DocumentedAugmentin None DocumentedDust None Documentediodine None DocumentedLevaquin None Documentedsulfa drugs None DocumentedCurrent medications: (Selected)Inpatient MedicationsOrderedAtivan: 0.5 mg, IV, Q6H, PRN: AgitationDextrose 50% Syringe (D50W): 25 mL, IVP , PRN, PRN: Blood Glucose ResultsDextrose 50% Syringe ( D50W): 50 mL, IVP, PRN, PRN: Blood Glucose ResultsLoven ox: 40 mg, SUB-Q, edhgN74OXzappxqc: 1 gm, IVPB, VYGP84Ylnesgtxzjflph: 650 mg, PO, Q4H, PRN: Pain 1-3/Temp > 100.4 Fazithromycin: 500 mg, IVPB, Dailydocusate: 100 mg, PO, BIDglucagon: 1 mg, IM , PRN, PRN: Blood Glucose Resultsnormal saline 0.9% IV 1,000 mL: 75 ml/hr, IV, Stop: 10/08/22 14:41:00 CSTondansetron: 4 mg, IVP, Q8H, PRN: Nausea and VomitingpredniSONE: 40 mg, PO, DailyPrescriptionsPrescribedXopenex HFA 45 mcg/i nh inhalation aerosol with adapter: 45 microgram, 1 puff, INHALATION, Q6H, PRN: Cough, wheezing, shortness of breath, 1 ea, 0 Refill(s)levalbuterol 0.63 mg/3 mL inhalation solution: 0.63 mg, 3 mL, NEB, PRN, OH N: Respiratory Pathway, 180 inhalation, 0 Refill(s)Documented MedicationsDocumentedVitamin B12 Methylcobalamin: 5000 mcg, SL, Daily, 0 Refill(s)aspirin: 81 mg, PO, Daily, 0 Refill(s)clonazePAM 100 microgram/ml cpmd oral suspension: 0.5 mg, 1 tab, PO, TID, PRN: Anxiety , 0 Refill(s)magnesium citrate: 800 mg, PO, TID, 0 Refill(s)multivitamin: otc, PO, Daily, 0 Refill( s),Home Medications (7) Activeaspirin 81 mg, PO, Dailycl onazePAM 100 microgram/ml cpmd oral suspension 0.5 mg = 1 tab, PRN, PO, TIDlevalbuterol 0.63 mg/3 mL inhalation solution 0.63 mg = 3 mL, PRN, NEB, PRNmagnesium citrate 800 mg, PO, TIDmultivitamin otc, PO, DailyVitami n B12 Methylcobalamin 5000 mcg, SL, DailyXopenex HFA 4 5 mcg/inh inhalation aerosol with adapter 45 micro gram = 1 puff, PRN, INHALATION, U2BTabnwfq list:All Probl emsNo Chronic Problems / Cerner NKPHistoriesPast Medic al History:ResolvedAsthma (128680711): Resolved.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.Shortness of breat h ([id number]): Resolved.Depression (747944795): Resolved.Cancer of skin ([id number]): Resolved .Family History:Breast cancerSisterTIAMotherStrokeFatherMotherBrotherPr ocedure history:Polypectomy (776244853).Lymph node opera tion (942503754).Uterine suspension without shortenin g of round ligaments or sacrouterine ligaments (184769603).Physical ExaminationImpression an d PlanAcute issues:*Lung mass, likely malignancy*P ossible community acquired pneumonia*Aortic stenosis*HTN*Asthma*Ramvbyo0009/08/2022--Admit to inpatient--Check CBC an BMP, check tumor markers--Reported history of iodine is only anxi ety per the patient--take clonazepam at home, will leave PRN Ativan--Rocephin/Azithromycin--Check Influenza, other viral studies, strep's urine antigen. Low suspic ion of COVID (history of COVID few months ago).--CT payton st abd pelvis (after one dose of prednisone) pt repo rts no true allergy to Iodine, reports that its mostly anxiety--Pulmonary consult--IVF and check jayson al function.DVT px: Lovenox.Shannan Bui MDElectronically Signed: 09/08/22 14:47 Notes Date/Time Note Provider Source 2023-06-12 [id number] [facility] 09:20:00-00:[address] [place] [address] PATIENT NAME: SIMONE PEREZ ADMIT DATE: 06/12 ACCOUNT NO: [id number] ROOM NO: [facility] AGE: 82 REPORT TYPE: eELECTROCARDIOGRAM REPORT SEX: F ADMITTING PHYSICIAN:Tobin Frazier MD ATTENDING PHYSICIAN:Tobin Frazier MD Order: [id number] Test Reason : POST WATCHMAN Test Date/Time Stamp: SunJun 12 2023 09:20:56 Blood Pressure : / mmHG Vent. Rate : 059 BPM Atrial Rate : 059 BPM P-R Int : 194 ms QRS Dur : 088 ms QT Int : 402 ms P-R-T Axes : 051 085 021 degree s QTc Int : 397 ms Sinus bradycardia with premature atrial complexe s Voltage criteria for left ventricular hypertroph y Abnormal ECG When compared with ECG of 08-JUN-2023 12:28, Significant changes have occurred Confirmed by CISCO CAGLE MD ([id number]) on 06/22/2023 9:50:42 PM Referred By: Tobin Frazier Confirmed by:CISCO SERNA MD Electronically Signed by Cisco Cagle MD on 05/27 07/18 at 2150 PATIENT NAME: SIMONE PEREZ [id number] [id number] [facility] 18:16:00-00:00 [facility] ([facility]) Consultation Note - Brief REPORT#:[id number] REPORT STATUS: Signed DATE:06/08/23 TIME: 1815 PATIENT: SIMONE PEREZ UNIT #: [id number] ROOM/BED: : 38 AGE: 82 SEX: F ATTEND: Ady Frazier MD ADM AUTHOR: Jose Juan Negro MD * ALL edits or amendments must be made on the [employer]/computer document * History of Present Illness HPI Requesting Clinician: Dr. Frazier Reason for consult: Patient here today for elective preop and shared decision for watchman insertion. Chief complaint: None PCP: PCP: Tobi Jasso MD History of present illness: 82-year-old woman with past medical history of atrial fibrillation, hypertension , dyslipidemia, CABG, obstructive sleep apnea, P lexiPulse pacemaker placement presented today for elective preop evaluation fo r watchman insertion. History - Adult longitudinal Past medical history: Reports: Atrial fibrillation, Coronary artery di sease, Hypertension, Dyslipidemia, Ischemic stroke. Additional medical history: Brain stem stroke multiple TIAs Past surgical history: Reports: CABG, Pacemaker. Alcohol use: Denies EtOH use Drug use: Denies recreational drugs Smoking status for patients 13 years old or olde r: Former Smoker Other social history: Local resident Allergies: Coded Allergies: levofloxacin (From LEVAQUIN) (Severe, MUSCLE TWI TCHING 08/12/17) Sulfa (Sulfonamide Antibiotics) (Mild, NAUSEA ) iodine (Mild, tremors 12/21/11) Unable to obtain: family history Brief Consult Note Physical Exam Vitals: Blood pressure 110/60, pulse of 69, respiratory rate of 12, temperature 98.6 General appearance: alert, awake, oriented HEENT: anicteric Neck: full range of motion, no bruit/NL carotids , no JVD Cardiovascular: regular rate rhythm, normal hear t sounds Respiratory: clear to auscultation, no d istress, no tenderness, aerating well, symmetric expansion Abdomen: soft, non-tender, no guarding, no rebou nd Genitourinary: not indicated, deferred Neuro/FILTER ASSEMBLER: alert, oriented X 3, normal speech, n o motor deficits Extremities: Bilat moves all, Bilat no edema Findings/Data: Recent Impressions: RADIOLOGY - XR CHEST 2 V 06/08 1155 Report Impression - Status: SIGNED Entered: 06/08/2023 1426 IMPRESSION: No acute cardiopulmonary findings Impression By: [email or web address] Katie Parada D.O. Laboratory Tests 06/08/23 1147: [Embedded Image Not Available] Free Text A P: 82-year-old woman here today for watchman preop evaluation and shared decision. Patient meets criteria for watchman insertion CHADS2 vascular score is 4 Has bled score is 2 Patient filled NICE questionnaire at 2949 RPT #:[id number] END OF REPORT 2023-06-08 [id number] [facility] 12:28:00-00:[address] [place] [address] PATIENT NAME: SIMONE PEREZ ADMIT DATE: 06/12 ACCOUNT NO: [id number] ROOM NO: [facility] AGE: 82 REPORT TYPE: eELECTROCARDIOGRAM REPORT SEX: F ADMITTING PHYSICIAN:Tobin Frazier MD ATTENDING PHYSICIAN:Tobin Frazier MD Order: [id number] Test Reason : PREOP Test Date/Time Stamp: SunJun 08 2023 12:28:56 Blood Pressure : / mmHG Vent. Rate : 062 BPM Atrial Rate : 062 BPM P-R Int : 206 ms QRS Dur : 084 ms QT Int : 420 ms P-R-T Axes : [id number] degree s QTc Int : 426 ms Normal sinus rhythm Possible Left atrial enlargement Left ventricular hypertrophy Abnormal ECG When compared with ECG of 13-FEB-2012 08:10, No significant change was found Confirmed by ELLI CAGLE ([id number]) on 06/15/2023 8: 53:42 AM Referred By: Tobin Frazier Confirmed by:ELLI Samano [facility] Electronically Signed by Elli Cagle MD on at 0813 PATIENT NAME: SIMONE PEREZ [id number] Radiation Dose CTDIVOL = 0 (mGy): DLP = 116.22 ( mGy-cm) [facility] 14:37:00-00:00 PROCEDURE INFORMATION: Exam: CT Chest Without Contrast; Diagnostic Exam date and time: 02/01/2023 3:41 PM Age: 82 years old Clinical indication: /r91.1 TECHNIQUE: Imaging protocol: Diagnostic computed tomography of the chest without contrast. Radiation optimization: All CT scans at this facility use at least one of these dose optimization techniques: automated exposure control; mA and/or kV adjustment per patient size (includes targeted e xams where dose is matched to clinical indication); or iterative reconstructio n. REPORTING DATA: Count of CT and Cardiac NM exams in prio r 12 months: This patient has received 2 known CTs and 0 known card iac nuclear medicine studies in the 12 months prior to the current study. COMPARISON: CHEST ABDOMEN PELVIS W CONTRAST CT 09/08/2022 11 :37 PM, CT lung biopsy 09/13/2022 RADIATION DOSE METRICS: Total DLP (mGy-cm): 116.22 FINDINGS: Lungs: Virtual resolution of multiple confluent bilateral pulmonary infiltrates noted previously, with residual linear scarring in each lobe. No mass or endobronchial obstructing lesion. No bronchiecta sis. Pleural spaces: No pleural effusion. Heart: Cardiomegaly, moderate coronary artery ca lcifications. No pericardial effusion. Lymph nodes: No gross adenopathy. Vasculature: Ectatic aorta with aneurysmal dilat ation of the ascending aorta, diameter approximately 4.4 cm, unchanged. Intraperitoneal space: Unenhanced upper abdominal images grossly unremarkable. Bones/joints: Kyphosis, dextroscoliosis, moderat e spondylosis and multilevel degenerative disc disease. Soft tissues: Unremarkable. IMPRESSION: 1. Virtual complete resolution of extensive conf luent bilateral pulmonary infiltrates noted previously, with residual line ar scarring. 2. Aneurysmal dilatation ascending aorta, diamet er approximately 4.4 cm, unchanged. 3. Cardiomegaly, moderate coronary artery calcif ications. 4. Dextroscoliosis with extensive spondylosis an d multilevel degenerative disc disease. Cyrus Nichols MD On 02/02/2023 15:10:59; MARGARITO [id number] 2022-10-04 PROCEDURE INFORMATION: CRISSY lou 14:18:00-00:00 Exam: XR Chest Exam date and time: 10/04/2022 2:06 PM Age: 81 years old Clinical indication: Shortness of breath; Additi onal info: /r06.02 TECHNIQUE: Imaging protocol: Radiologic exam of the chest. Views: 2 views. PA and Lateral COMPARISON: CHEST 1VIEW DX 09/13/2022 7:00 PM FINDINGS: Tubes, catheters and devices: Surgical clips ove rlie the right axilla region. Lungs: Pulmonary emphysema identified within the lungs. Linear density identified within the bilateral perihilar lungs. Linear densities extend into the upper lobes, worse on the right side. Bilate ral interstitial and alveolar opacities demonstrate improvement since August 2022. Pleural spaces: Pleural and lung parenchymal sca rring identified within right upper chest. No other pleural effusion or pneumo thorax identified. Heart/Mediastinum: Cardiac silhouette appears mi ec-ce-ddfofkqmix enlarged. Vasculature: Aayu-jk-wdihaqr e atherosclerotic calcification demonstrated within the aorta. Tortuous and ectatic aorta is demonst rated. Bones/joints: Dextroscoliosis of the tho racic spine is demonstrated. Diffusely decreased bone density. Generalized bony degener ative changes. IMPRESSION: 1. Tjrm-eh-zpjykwchpg enlarged cardiac silhouett e. 2. Pulmonary emphysema. 3. Linear bilateral perihilar and upper lobe pul monary atelectasis, scarring. Right greater than left. 4. Improvement of bilateral pneumonia versus pulmonary edema since prior study. 5. Chronic findings. Cheryl Hewitt MD On 10/05/2022 07:27:02; VR- [id number] 2022-09-13 PROCEDURE INFORMATION: CRISSY lou 19:05:00-00:00 Exam: XR Chest Exam date and time: 09/13/2022 7:00 PM Age: 81 years old Clinical indication: Shortness of breath; Additi onal info: Shortness of breath/sob, chest heaviness TECHNIQUE: Imaging protocol: Radiologic exam of the chest. Views: 1 view. COMPARISON: CHEST 1VIEW DX 09/13/2022 2:20 PM FINDINGS: Lungs: Lungs are adequately expanded. There is m ild to moderate streaky increased density in the right upper lung zone, mildly diminished now as compared to prior mild hazy increased density is present in the left upper lobe, unchanged. Pleural spaces: Unremarkable. No pleural effusio n. No pneumothorax. Heart/Mediastinum: There is moderate enlargement of the cardiac silhouette with tortuosity and calcification of the thoracic aor ta. Bones/joints: Gzxc-kp-megphktd S-shaped thoracol umbar scoliosis.. Soft tissues: Surgical clips are present in the right axilla. IMPRESSION: There are streaky increased densities in the upp er lung zones, greater on the right than the left, with mild improvement in th e right lung zone now as compared prior. Findings are otherwise stable. Uyen Marie MD On 09/13/2022 19:54:3 2; [id number] 2022-09-13 PROCEDURE INFORMATION: Dirk ast 14:21:00-00:00 Exam: XR Chest Exam date and time: 09/13/2022 2:20 PM Age: 81 years old Clinical indication: /mass, post lung biopsy pro cedure TECHNIQUE: Imaging protocol: Radiologic exam of the chest. Views: 1 view. COMPARISON: 1. CHEST ABDOMEN PELVIS W CONTRAST CT 09/08/2022 11:37 PM 2. CHEST 1VIEW DX 09/02/2022 12:25 PM FINDINGS: Lungs: Stable bilateral consolidative opacities more severe on the right. Pleural spaces: No pneumothorax or pleural effus ion. Heart/Mediastinum: Stable enlarged of the cardia c silhouette. Bones/joints: Dextroscoliosis of the thoracic sp ine. Soft tissues: Right axillary surgical clips. IMPRESSION: 1. No pneumothorax. 2. Stable bilateral consolidative opacities. 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 Percutaneous biopsy of a right lower lobe yogi g mass using CT guidance 2. Moderate Sedation CLINICAL INDICATION: 81-year-old female with mul tiple bilateral lung masses/consolidations COMPARISON: CT chest on 09/08/2022 CONSENT: The procedure, risks, benefits, and alt ernatives were discussed with the patient and written informed consent was obt ained. A 'timeout' performed per protocol prior to the procedure. TECHNIQUE: CT imaging performed at this location utilizes r adiation dose optimization techniques which include one or more of the foll owing: Automated exposure control, adjustment of the mA and/or kV accordin g to patient size, use of iterative reconstruction technique. forwarder operator: Dr. Jones Preoperative diagnosis: Right lower lobe lung ma ss Postoperative diagnosis: same Total radiation dose: 448.05 mGycm Estimated blood loss: Less than 10 cc Moderate sedation: I supervised moderate sedatio n during this procedure. Patient was continuously monitored by a nurse us ing automated blood pressure, electrocardiogram, and pulse oximetry. The moder ate sedation record is permanently stored in the hospital UserTesting system. The personal supervised moderate sedation time was 1 6 minutes. Medications administered: Versed 2 mg IV and Fentanyl 100 mcg IV. The patient was placed in a prone position on the CT table. Preprocedure CT was used to demarcate the right lower lobe m ass/consolidation. The posterior right chest wall of the patient was prepped and draped using sterile technique. The overlying skin was anesthetized with 1% lidocain e. Using CT guidance, a 17-gauge introducer needle was advanced into the right lower lobe mass/consolidation. Subsequently, 4 c ore biopsies (18-gauge x 2cm) were obtained of this mass using a coaxial techn ique. Samples were sent for both histopathology and microbial analysis. The needles were removed at the end of the procedure and sterile dressings appli ed. Postprocedure imaging demonstrated no immediate complication. The patient was stable throughout the procedure. IMPRESSION: Successful percutaneous biopsy of a right lower lobe lung mass using CT guidance. Kayla Jones MD On 09/13/2022 16:42:59; [id number] 2022-09-08 Radiation Dose CTDIVOL = 0 (mGy): DLP = 150.01 ( mGy-cm) [facility] 23:25:34-00:00 PROCEDURE INFORMATION: Exam: CT Chest With Contrast; Diagnostic Exam date and time: 09/08/2022 11:34 PM Age: 81 years old Clinical indication: Patient HX: /shortness of breath, right lung mass, concern for metastatic disease. ; Additional info: /shor tness of breath, right lung mass, concern for metastatic disease. TECHNIQUE: Imaging protocol: Diagnostic computed tomography of the chest with contrast. Radiation optimization: All CT scans at this facility use at least one of these dose optimization techniques: automated exposure control; mA and/or kV adjustment per patient size (includes targeted e xams where dose is matched to clinical indication); or iterative reconstructio n. Contrast material: OMNI; Contrast volume: 75 ml; Contrast route: INTRAVENOUS (IV); COMPARISON: CHEST WO CONTRAST CT 09/02/2022 3:48 PM RADIATION DOSE METRICS: Total DLP (mGy-cm): 150.01 FINDINGS: Lungs: Confluent, multifocal opacities preferent ially involving the superior segment right lower lobe and apical region of th e right upper lobe. Pleural spaces: Unremarkable. No pneumothorax. N o pleural effusion. Heart: Unremarkable. No cardiomegaly. No pericar dial effusion. Lymph nodes: No pathologic lymphadenopathy in th e chest by CT size criteria. Vasculature: Ectatic ascendi ng thoracic aorta measuring 4.4 x 4.3 cm. No aortic dissection. Bones/joints: Bones are osteopenic. No discrete lytic or blastic osseous lesions within the limitations of the extent of osteopenia. Soft tissues: Unremarkable. PROCEDURE INFORMATION: Exam: CT Abdomen And Pelvis With Contrast Exam date and time: 09/08/2022 11:34 PM Age: 81 years old Clinical indication: Patient HX: /shortness of breath, right lung mass, concern for metastatic disease. ; Additional info: /shor tness of breath, right lung mass, concern for metastatic disease. TECHNIQUE: Imaging protocol: Computed tomography of the abdomen and pelvis with contrast. Radiation optimization: All CT scans at this facility use at least one of these dose optimization techniques: automated exposure control; mA and/or kV adjustment per patient size (includes targeted e xams where dose is matched to clinical indication); or iterative reconstructio n. Contrast material: OMNI; Contrast volume: 75 ml; Contrast route: INTRAVENOUS (IV); COMPARISON: ABDOMEN/PELVIS WO IV CONTRAST CT 02/13/2018 10:55 PM RADIATION DOSE METRICS: Total DLP (mGy-cm): 150.01 FINDINGS: Liver: Normal. No mass. Gallbladder and bile ducts: Normal. No calcified stones. No ductal dilation. Pancreas: Normal. No ductal dilation. Spleen: Normal. No splenomegaly. Adrenal glands: Normal. No mass. Kidneys and ureters: Normal. No hydronephrosis. Stomach and bowel: Large volume stool burden thr oughout the colon suggesting constipation. Appendix: Appendix not clearly visualized. Intraperitoneal space: Unremarkable. No free air . No significant fluid collection. Vasculature: Mild aortoiliac calcific atheroscle rotic disease without aneurysmal dilatation. Lymph nodes: Unremarkable. No enlarged lymph nod es. Urinary bladder: No wall thickening. Reproductive: Unremarkable as visualized. Bones/joints: Bones are osteopenic. No discrete lytic or blastic osseous lesions within the limitations of the extent of osteopenia. Multilevel lumbar spine degenerative change. Soft tissues: No acute findings. IMPRESSION: CT Chest With Contrast; Diagnostic 1. Multifocal confluent opacities of the bilater al lungs appear relatively unchanged and are again favored represent pneumo reg. Malignant process cannot be excluded and continued follow-up to ensure co mplete resolution recommended after appropriate therapy. 2. Ectatic ascending thoracic aorta. CT Abdomen And Pelvis With Contrast 1. Large volume stool burden throughout the colo n suggesting constipation. 2. No findings to suggest metastatic disease in the abdomen or pelvis. Castro Mccann MD On 09/09/2022 00:09:06; [id number] 2022-09-02 Radiation Dose CTDIVOL = 0 (mGy): DLP = 167.44 ( mGy-cm) [facility] 16:02:13-00:00 PROCEDURE INFORMATION: Exam: CT Chest Without Contrast; Diagnostic Exam date and time: 09/02/2022 3:48 PM Age: 81 years old Clinical indication: /mass on cxr TECHNIQUE: Imaging protocol: Diagnostic computed tomography of the chest without contrast. Radiation optimization: All CT scans at this facility use at least one of these dose optimization techniques: automated exposure control; mA and/or kV adjustment per patient size (includes targeted e xams where dose is matched to clinical indication); or iterative reconstructio n. COMPARISON: 1. CHEST PULMONARY EMBOLISM CTA 01/26/2020 3:17 PM 2. CHEST 1VIEW DX 09/02/2022 12:25 PM RADIATION DOSE METRICS: Total DLP (mGy-cm): 167.44 FINDINGS: Lungs: Multifocal bilateral upper lobe g round-glass infiltrates concerning for pneumonia. Follow-up to document resolution afte r treatment is recommended to help exclude a more aggressive process. Pleural spaces: Unremarkable. No pneumothorax. N o pleural effusion. Heart: Cardiomegaly with coronary artery calcifi cations. Mediastinal space: Air-filled esophagus secondar y to dysmotility or reflux. Lymph nodes: Unremarkable. No enlarged lymph nod es. 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 Bones/joints: Rightward thoracic curvature. Soft tissues: Beam hardening artifact from the p atient's arms limits detail. IMPRESSION: 1. Multifocal bilateral upper lobe ground-glass infiltrates concerning for pneumonia. Follow-up to document resolution afte r treatment is recommended to help exclude a more aggressive process. 2. 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 3. Cardiomegaly with coronary artery calcificati ons. 4. Air-filled esophagus secondary to dysmotility or reflux. Daryl Ledbetter MD On 09/02/2022 16:32:46; [id number] 2022-09-02 PROCEDURE INFORMATION: [facility] 12:50:00-00:00 Exam: US Duplex Lower Extremity Veins, Bilateral Exam date and time: 09/02/2022 12:56 PM Age: 81 years old Clinical indication: /lower extremity swelling TECHNIQUE: Imaging protocol: Real-time Duplex ultrasound of the bilateral extremities with 2-D romero scale, color Doppler flow and spectral waveform analysis with image documentation. Complete exam focused on the bila teral lower extremity veins. COMPARISON: EXT LOWER VENOUS DOPPLER BILAT US 01/26/2020 1:40 PM FINDINGS: Right deep veins: Unremarkable. The comm on femoral, femoral, proximal profunda femoral and popliteal veins are patent without t hrombus. Normal Doppler waveforms. Normal compressibility and/or augment ation response. Right superficial veins: Saphenofemoral junction is patent without thrombus. Left deep veins: Unremarkable. The common femora l, femoral, proximal profunda femoral and popliteal veins are patent without t hrombus. Normal Doppler waveforms. Normal compressibility and/or augment ation response. Left superficial veins: Saphenofemoral junction is patent without thrombus. Soft tissues: Right popliteal fossa 7.8 x 1.6 x 1.6 cm heterogeneous echogenicity collection may represent Harrell's cy st. IMPRESSION: No evidence of deep vein thrombosis. Benjamin Chang MD On 09/02/2022 13:37:51; [id number] 2022-09-02 PROCEDURE INFORMATION: [facility] 12:42:55-00:00 Exam: XR Chest Exam date and time: 09/02/2022 12:25 PM Age: 81 years old Clinical indication: /chest pain TECHNIQUE: Imaging protocol: Radiologic exam of the chest. Views: 1 view. COMPARISON: CHEST 1VIEW DX 08/28/2019 4:47 PM FINDINGS: Lungs: Interval new right upper lobe masslike op acity and probable cavitary area are present. Mild patchy left upper lobe interstitial opacity is present. Pleural spaces: No significant pleural effusion. No significant pneumothorax. Heart/Mediastinum: Stable mildly enlarged cardia c silhouette. Vasculature is unremarkable. Bones/joints: No radiographically evident of dis placed rib fracture. Severe dextroscoliosis. IMPRESSION: Interval new right upper lobe masslike opacity a nd probable cavitary area are present. Differential includes pneumonia versus malignancy. Dedicated CT chest recommended for further evaluation. Sedrick Esparza MD On 09/02/2022 13:00:50; VR-CRM_ [id number] 2020-01-26 Radiation Dose CTDIVOL = 0 (mGy): DLP = 337.05 ( mGy-cm) [facility] 15:09:20-00:00 PROCEDURE INFORMATION: Exam: CT Angiography Chest With Contrast Exam date and time: 01/26/2020 3:17 PM Age: 79 years old Clinical indication: Pain; Patient HX: PT report s chronic SOB x 1 yr , pins needles to chest 'lungs feel irritated ', had nu c med test thinks to R/O pe sent here by Dr dutton after test; Additional inf o: /abnl vq scan TECHNIQUE: Imaging protocol: Computed tomographic angiograp hy of the chest with intravenous contrast. 3D rendering: MIP and/or 3D reconstructed images were created by the technologist. Total DLP: 337.05 mGy-cm Radiation optimization: All CT scans at this facility use at least one of these dose optimization techniques: automated exposure control; mA and/or kV adjustment per patient size (includes targeted e xams where dose is matched to clinical indication); or iterative reconstructio n. Contrast material: OMNIPAQUE; Contrast volume: 1 00 ml; Contrast route: IV; COMPARISON: CHEST CTA 05/23/2018 12:03 PM FINDINGS: Pulmonary arteries: Normal. No pulmonary emboli. Aorta: The abdominal aorta is enlarged measuring 4.5 x 4.2 cm which is unchanged. Lungs: Unremarkable. No consolidation. No masses . Pleural space: Unremarkable. No pneumothorax. No pleural effusion. Heart: Unremarkable. No cardiomegaly. No pericar dial effusion. Lymph nodes: Unremarkable. No enlarged lymph nod es. Bones/joints: Unremarkable. No acute fracture. Soft tissues: Unremarkable. IMPRESSION: 1. Stable ectasia/aneurysmal dilatation of the a scending thoracic aorta. 2. No evidence of pulmonary embolism. 3. No focal infiltrates or lymphadenopathy. Anshul Kimbrough MD On 01/26/2020 16:02:44; MARJAN [id number] 2020-01-26 PROCEDURE INFORMATION: Mitchel lou 13:55:00-00:00 Exam: US Duplex Lower Extremity Veins Exam date and time: 01/26/2020 1:53 PM Age: 79 years old Clinical indication: /eval for SOB and leg swell ing TECHNIQUE: Imaging protocol: Real-time duplex ultrasound of the Lower Extremities with 2-D romero scale, color Doppler flow and spectral wave form analysis with image documentation. Complete exam focused on the bila teral lower extremity veins. COMPARISON: No relevant prior studies available. FINDINGS: Right deep veins: Unremarkable. The common femor al, femoral, popliteal veins are patent without thrombus. Normal Dopp ler waveforms. Normal compressibility. Right superficial veins: Saphenofemoral junction is patent without thrombus. Left deep veins: Unremarkabl e. The common femoral, femoral, popliteal veins are patent without thrombus. Normal Doppler waveform s. Normal compressibility. Left superficial veins: Saphenofemoral junction is patent without thrombus. Soft tissues: Unremarkable. IMPRESSION: No acute findings. No evidence of deep vein thro mbosis. Tye Britt MD On 01/26/2020 14:34:18; TOMOOD [id number] PROCEDURE INFORMATION: CRISSY lou 11:04:00-00:00 Exam: XR Chest, 1 View Exam date and time: 01/26/2020 11:01 AM Age: 79 years old Clinical indication: Shortne ss of breath; Additional info: /r06.02 shortness of breath TECHNIQUE: Imaging protocol: XR of the chest Views: 1 view. COMPARISON: CHEST 1VIEW DX 08/28/2019 4:47 PM FINDINGS: Lungs: No acute airspace consolidation. Pleural space: No pleural effusion. No pneumotho rax. Heart/Mediastinum: No cardiomegaly. Vasculature: The aorta is tortuous and demonstra melody atherosclerotic calcifications. Bones/joints: Stable scoliosis. IMPRESSION: No acute cardiopulmonary process. 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 [facility] 10:30:00-00:00 patient is to be sent to the emergency room. Daryl Ledbetter MD On 01/26/2020 11:35:34; VR-SER PROCEDURE INFORMATION: Exam: NM Lung Ventilation and Perfusion Imaging Exam date and time: 01/26/2020 10:59 AM Age: 79 years old Clinical indication: Shortne ss of breath; Additional info: /r06.02 shortness of breath TECHNIQUE: Imaging protocol: Nuclear pulmonary ventilation with aerosol or gas was performed followed by perfusion. Views: Ventilation acquired with multipl e projections. Perfusion acquired with multiple projections. Radiopharmaceutical: 11.2 mCi xenon 133, inhalat ion. 6.5 mCi Tc 99m MAA right antecubital injection site. COMPARISON: CHEST 1VIEW DX 08/28/2019 4:47 PM FINDINGS: There is increased left lower lung zone perfusion defect relative to the right lower lung zone. There is mild retention of activity on the delayed sequences. IMPRESSION: Intermediate probability for pulmonary embolus. Daryl Ledbetter MD On 01/26/2020 11:29:54; VR-SER [id number] PROCEDURE INFORMATION: [facility]jap[facility] 11:28:00-00:00 Exam: MR Head Without Contrast Exam date and time: 11/08/2019 11:36 AM Age: 78 years old Clinical history: Other amne isaura; Additional info: R41.3 other amnesia/neuro rad TECHNIQUE: Imaging protocol: MR of the head without contras t. 3D rendering: MIP reconstructed images were jaxon hernandez and reviewed. COMPARISON: BRAIN WO CONTRAST CT 02/13/2018 4:54 PM FINDINGS: Brain: Significant periventricular and subcortic al areas of gliosis of the supratentorial brain is present. There is no acu te cortical infarct, parenchymal hemorrhage or an intra-axial mass. T here is minimal to moderate central and cortical atrophy. Hemosiderin deposi tion is present along with suspected calcification of 8 mm in the right cer ebellum likely representing a cavernous angioma. Ventricles: There is a cavum septum pellucidum a nd vergae. There is no obstructive hydrocephalus. Ventriculomegaly seco ndary to central atrophy. Bones/joints: Unremarkable. Soft tissues: Unremarkable. Sinuses: Normal as visualized. No acute sinusiti s. Mastoid air cells: Normal as visualized. No mast oid effusion. Orbits: The orbital lenses have been resected. T here is no retrobulbar abnormality. Sella: There is a partial empty sella. Nasopharynx: There is right nasal septal deviati on. Other vasculature: Normal flow is present from t he 4th portions of both vertebral arteries, the basi lar artery and intracranial carotid arteries. There are no extra-axial fluid collections. IMPRESSION: Significant myla ventricular and subcortical areas of gliosis of the supratentorial brain is present. There is no acu te cortical infarct, parenchymal hemorrhage or an intra-axial mass. T here is minimal to moderate central and cortical atrophy. Hemosiderin deposi tion is present along with suspected calcification of 8 mm in the right cer ebellum likely representing a cavernous angioma. Chava Baker MD On 11/08/2019 12:43:14; VR-BB [id number] 2019-09-12 PROCEDURE INFORMATION: CRISSY [facility] 16:17:00-00:00 Exam: MR Right Lower Extremity Without Contrast, Ankle Exam date and time: 09/12/2019 4:19 PM Clinical history: 78 years old, female; Stress f racture, right ankle, initial encounter for fracture; Ramiro tional info: M84.371a stress fracture, right ankle, initial encounter for fracture/m84.371a stress f racture, right ankle, initial encounter for fracture TECHNIQUE: Imaging protocol: MR of the Right ankle without contrast. COMPARISON: ANKLE WO CONTRAST CT, RIGHT 07/16/2019 11:41 AM FINDINGS: Alignment: Normal. MEDIAL COMPARTMENT: Posterior tibial, flexor hallucis longus, flexor digitorum longus tendons: There is a split tear of the posterior t ibial tendon with tenosynovitis. There is diffuse tenosynovitis of the medial flexor te ndons. Deltoid ligament complex (superficial/deep): Nor mal. Spring ligament: Normal. LATERAL COMPARTMENT: Peroneus longus and brevis tendons: Minimal teno synovitis of the peroneal tendons. Anterior inferior tibiofibular, posterior inferi or tibiofibular, anterior talofibular ligaments: Syndesmotic ligaments are intact. There is a partial tear of anterior talofibular ligament. Calcaneofibular ligament: Normal. ANTERIOR COMPARTMENT: Mild tendinosis of the tibialis anterior. GENERAL: Bones and joints: There is significant marrow ed mata and cystic change in the medial talar dome with an overlying chondral def ect. This is compatible with osteochondral injury. There is associated tibiot alar joint arthrosis. There is also subtalar joint arthrosis as well w ith associated subarticular marrow edema and cystic change in the talus and calcaneus. This is most prominent along the posterior subtalar facet. There is also marrow edema distal fibula and med ial malleolus. Muscles: Normal. Achilles: Intact. There is edema in the pre-Achi lles fat. Tarsal tunnel: The distended tendon sheaths of t he flexor tendons occupy the tarsal tunnel. Plantar fascia: Normal. Sinus tarsi: There is abnormal signal in the sin us tarsi. Correlate for sinus tarsi syndrome. Fluid: There are small ankle and subtalar joint effusions, or other significant internal debris and synovial thickening. This is compatible with synovitis. Hypointense debris noted in both the ankle and s ubtalar joint. IMPRESSION: 1. Split tear of the posterior tibial tendon. Di ffuse medial flexor tenosynovitis. 2. Partial tear of the anterior talofibular liga ment. 3. Osteochondral injury of the medial talar dome with associated marrow edema and cystic change. 4. Mild ankle and subtalar joint arthrosis. 5. Small ankle and subtalar joint effusions, how ever evidence of significant synovitis of both joints. 6. Mild tibialis anterior tendinosis. Given these findings, correlate clinically for i nflammatory arthropathy. Additional findings, as above. Tye Britt MD On 09/13/2019 17:37:26; -ERM [id number] Patient Name: SIMONE Vinson 16:50:00-00:00 : 1940; Age: 78 years Female MR: [id number] Study: Ext Lower Venous Doppler Unilat US 019 16:50 CDT CLINICAL INDICATION: - RLE swelling. COMPARISON: None TECHNIQUE: Sonographic evaluation of th e right lower extremity veins was performed using high resolution B-mode imaging, along with pulse and color Doppler imaging. FINDINGS: Right lower extremity: The common femoral vein, fem oral vein, popliteal vein and visualized posterior tibial/calf veins are patent and compressible. The saphenofemoral junction and visualized greater saphenous vein are patent and compressible. IMPRESSION: No evidence of deep venous thrombosis within the right lower extremity. SL: [id number] 2019-08-28 [facility] [place] 16:31:00-: HISTORY: 78 years old Female with - chest pain TECHNIQUE: A single AP view of the chest was obt ained. COMPARISON: Chest radiograph 04/25/2019 FINDINGS: The cardiomediastinal silhou ette is within normal limits. Aortic calcifications. Scarring in the left lung base. No focal consolidation or pleural effusion is seen. No definite pneumothorax is seen. No acute osseous abnormality is evident. Convex rig ht thoracic scoliosis. IMPRESSION: 1. No acute cardiopulmonary abnormality. SL: [id number] 2019-07-16 Study: Right Foot wo contrast CT, Right ankle wo contrast CT [facility] [place] 11:31:00-:00 Clinical Indication: - M25.5 71 Pain in right ankle and joints of right foot Comparison: Plain films of the right ankle from 12/19/2018 TECHNIQUE: Multiple axial CT images of the right ankle and right foot were acquired without the administration of intravenous contrast. Multiplanar reformatted images were performed. CT imaging performed at this location utilizes radiation dose optimization techniques which include one or more of the following: -Automated exposure control -Adjustment of the mA and/or kV according to pat ient size -Use of iterative reconstruction technique DLP= 141.89 mGy-cm FINDINGS: No acute bony frac ture, joint dislocation, or suspicious osseous lesion is seen. There is a large tibiotalar joint effusion. Subchondral cystic change along the medial talar dome is seen measu ring 8 mm AP dimension, 4 mm transverse dimension, and 6 mm craniocaudal dimension, compatible with cystic osteochondral lesion. Mild osteoarthrosis of the talonavicular joint is seen with mild joint sp christiana narrowing, marginal osse ous spurring, and subchondral cystic change. Bipartite tibial sesamoid bone is present. Os navicularis are noted. The Achilles tendon and plan tar fascia are grossly intact. The medial flexor, lateral, and anterior tendons about the ankle are grossly intact. The dorsal and plantar tendons across the foot are grossly intact. There is mild edema of the c ircumferential soft tissues about the ankle, nonspecific. Severe diffuse edema and stranding throughout the Kager's fat pad is noted, nonspecific. Arterial calcifications are present. IMPRESSION: 1. No acute bony abnormality of the right ankle or right foot. 2. Cystic osteochondral lesion of the medial eliana ar dome. 3. Large tibiotalar joint effusion. 4. Mild osteoarthrosis of the talonavicular join t. 5. Mild edema of the circumf erential soft tissues about the ankle, nonspecific. 6. Diffuse edema throughout the Kager's fat pad. Please correlate for Achilles peritendinitis. SL: MATIAS 2019-07-16 Study: Right Foot wo contrast CT, Right ankle wo contrast CT [facility] [place] 11:31:00-00:00 Clinical Indication: - M25.5 71 Pain in right ankle and joints of right foot Comparison: Plain films of the right ankle from 12/19/2018 TECHNIQUE: Multiple axial CT images of the right ankle and right foot were acquired without the administration of intravenous contrast. Multiplanar reformatted images were performed. CT imaging performed at this location utilizes radiation dose optimization techniques which include one or more of the following: -Automated exposure control -Adjustment of the mA and/or kV according to pat ient size -Use of iterative reconstruction technique DLP= 141.89 mGy-cm FINDINGS: No acute bony frac ture, joint dislocation, or suspicious osseous lesion is seen. There is a large tibiotalar joint effusion. Subchondral cystic change along the medial talar dome is seen measu ring 8 mm AP dimension, 4 mm transverse dimension, and 6 mm craniocaudal dimension, compatible with cystic osteochondral lesion. Mild osteoarthrosis of the talonavicular joint is seen with mild joint sp christiana narrowing, marginal osse ous spurring, and subchondral cystic change. Bipartite tibial sesamoid bone is present. Os navicularis are noted. The Achilles tendon and plan tar fascia are grossly intact. The medial flexor, lateral, and anterior tendons about the ankle are grossly intact. The dorsal and plantar tendons across the foot are grossly intact. There is mild edema of the c ircumferential soft tissues about the ankle, nonspecific. Severe diffuse edema and stranding throughout the Kager's fat pad is noted, nonspecific. Arterial calcifications are present. IMPRESSION: 1. No acute bony abnormality of the right ankle or right foot. 2. Cystic osteochondral lesion of the medial eliana ar dome. 3. Large tibiotalar joint effusion. 4. Mild osteoarthrosis of the talonavicular join t. 5. Mild edema of the circumf erential soft tissues about the ankle, nonspecific. 6. Diffuse edema throughout the Kager's fat pad. Please correlate for Achilles peritendinitis. SL: MATIAS 2019-06-12 Clinical Indication: abdominal pain - abd pain; [facility] [place] 15:54:00-00:00 Comparison: CT abdomen/pelvis from 02/13/2018. TECHNIQUE: Grayscale and limited color sonographic evaluation of the abdomen was performed with standard technique. FINDINGS: LIVER: The visualized liver shows n ormal contour, size, and morphology with normal parenchymal echo texture. The liver measures 11.2 cm in craniocaudal dimension. Limited visualized main port al vein is grossly patent. The main portal vein is mildly dilated, measuring 16.5 mm in diameter. Appropriate monophasic hepatopedal flow is noted in the main portal vein. BILE DUCTS: The intrahepatic and extrahe patic bile ducts are not dilated with the common bile duct measuring 2 mm. The distal common bile duct is not well seen. GALLBLADDER: There are no gallstones, gal lbladder sludge, pericholecystic fluid or wall thickening. Gallbladder wall measures 1 mm in thickness. PANCREAS: The visualized pancreas appears unremarkable. SPLEEN: The spleen is unremarkable and measures 6.9 cm i n maximal dimension. KIDNEY: The right kidney measures 10 .4 x 3.7 x 4.5 cm. Right renal cortex measures 1.1 cm in thickness. The left kidney measures 11. 0 x 5.9 x 4.6 cm. Left renal cortex measures 1.4 cm in thickness. Bilateral kidneys are somewh at echogenic in character. There is normal renal contour and morphology. There is no hydronephrosis. AORTA AND INFERIOR VENA CAVA: Visualized portions appear u nremarkable. Visualized portions of the abdominal aorta measure 2 cm in diameter. Scattered atherosclerotic burden is appreciated in portions of the visualized abdominal aorta. ASCITES: There is no right abdominal ascites. IMPRESSION: 1. Mildly dilated main marc l vein. As an isolated finding (without reversal of portal venous waveform or decreased portal venous velocity), this is of uncertain clinical significance. 2. Bilateral echogenic kidne ys, which can be seen in acute or long-standing medical renal disease, in the appropriate clinical setting. SL: [id number] 2019-04-25 Elbow 3 views DX, 04/25/2019 10:48 CDT CRISSY Foss 10:48:00-00:00 HISTORY: - M25.522 Pain in left elbow COMPARISON: None FINDINGS: There is severe ch ronic arthrosis of the left elbow. Marked deformity of the ulnotrochlear articulation with marked remodeling of the olecranon. . Alignment of the joint is difficult to assess though there appears to be some subluxation deformity of the ulnotrochlear. There is also marked deformity and erosions involving the radial head. Soft tissue swelling noted. 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 SL: [id number] 2019-04-25 PROCEDURE: Chest Radiograph. RAJIV [place] 10:48:00-00:00 Clinical Indication: Shortness of breath. Comparison: Chest radiograph 05/21/2018. FINDINGS: The chest shows normal lung volumes without interstitial or airspace opacities, pleural effusions or pneumothorax. The cardiac silhouette appea rs slightly enlarged. Degenerative change and dextroscoliosis involves the thoracic spine. IMPRESSION: 1. No chest radiographic evidence of acute cardi opulmonary disease. SL:[id number] 2019-01-20 3 VIEWS OF THE LEFT HAND CRISSY Foss 13:07:00-00:00 HISTORY: Left hand pain. COMPARISON: No priors. Bony structures are intact. Joint spaces of the hand maintained. Severe arthritic changes of the wrist with complete loss of joint space in some areas and erosive changes distal radius and ulna. 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 Remaining bones of the hand intact but osteopenic. END REPORT SL: [id number] 2019-01-20 Patient Name: SIMONE Foss 12:27:00-00:00 : 1940; Age: 78 years y/o Female MR: [id number] Physician: Barry Gates MD * ABDOMINAL SERIES, 2 views HISTORY: Acute generalized abdominal pain. COMPARISON: None TECHNIQUE: Supine and upright radiographs of the abdomen were obtained. FINDINGS: There is constipation. A mod erate amount of fecal material is noted throughout the colon. The soft tissue outlines and bowel gas pattern are otherwise unremarkable. There is no evidence of obstruction or ileus. There are no unusual intra-abdominal calcificati ons. There is mild to moderate th oracolumbar scoliosis. There are scattered degenerative changes in the visualized spine. The regional skeleton is otherwise unremarkable. IMPRESSION: 1. Constipation. 2. Benign appearance the abdomen. 3. Mild to moderate thoracol umbar scoliosis and degenerative changes involving the visualized spine. [facility] Exam: Right Hand 2 views DX Nancy Foss 12:17:00-00:00 Clinical Indication: Right hand pain. Comparison: None. FINDINGS: The AP and lateral views of the right hand show normal alignment without fractures or dislocations. The digit and thumb interphalangeal joints and MCP joints are mildly narrowed with mild periarticular soft tissue swelling. There is mild ulnar subluxation to the 1st MCP joint. The wrist show severe chronic changes of an erosive arthritis most likely rheumatoid arthritis. If there is further concern, recommend follow-up radiographs or bone scan for complete assessment. IMPRESSION: 1. 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 2. Mild narrowing and periar ticular soft tissue swelling to the MCP and interphalangeal joints. SL: [id number] 2019-01-20 Exam: Wrist complete Bilateral DX RAJIV [place] 12:17:00-00:00 Clinical Indication: Bilateral wrist pain.. Comparison: None. FINDINGS: The AP, oblique and lateral views of the right wrist show no acute fractures or dislocations. There is severe narrowing and remodeling of the radiocarpal joint with chronic erosion to the articular surf christiana of the distal radius and ulna. There is fusion of the carpal joints and 2nd through 4th carpometacarpal joints. There is proximal migration of the capitate. 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 There is moderate degenerative arthritis to the 1st CMC joint. There is mild wrist region soft tissue swelling. The AP, oblique and lateral views of the left wrist show no acute fractures or dislocations. There is severe narrowing and remodeling of the radiocarpal joint with chronic erosion to the articular surfa ce of the distal radius and ulna. There is fusion of the carpal joints carpometacarpal joints. There is proximal migration of the capitate. Overall findings consistent with Madelung deformity and chroni c SLAC wrist related to long -standing rheumatoid arthritis. There is mild degenerative arthritis to the 1st CMC joint. There is mild wrist region soft tissue swelling. If there is further concern, followup radiographs or MRI of the wrist may be performed for complete assessment. IMPRESSION: 1. 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 SL: [id number] 2018-12-19 Study: Right shoulder, 3 views [facility] 14:38:00-00:00 Clinical Indication: - m25.511 pain in right dominic ulder Comparison: None FINDINGS: Multiple views of the right shoulder show no acute bony fracture, joint dislocation, or suspicious osseous lesion. Mild to moderate AC joint osteoarthrosis is seen. Surgical clips in the axilla are noted. Bones are demineralized. IMPRESSION: 1. No acute bony abnormality of the right should er. 2. 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 SL: [id number] 2018-12-19 Study: Cervical spine, 5 views [facility] 14:38:00-00:00 Clinical Indication: - m54.2 cervicalgia Comparison: None FINDINGS: Multiple views of the cervical spine show visualization through the T1 vertebral body on the lateral view. No acute vertebral body height loss is seen. There is grade 1 anterolisthesis of C4 o kiersten C5 by 4.5 mm. Multilevel marginal osteophytes throughout cervical spine are seen. Severe disc height loss at C3-C4 and C5-C6 is seen, compatible with severe degenerative disc disease. Mild to modera te degenerative disc disease at C4-C5 and C6-C7 is seen. Moderate-severe facet arthrosis of the cervical spine is noted. Moderate right-sided neural foraminal narrowing from C3-C4 through C5-C6 is seen. Mild to moderate left-sided neural foraminal narrowing from C3-C4 through C5- C6 is also noted. Odontoid process is intact. Prevertebral soft tissues are unremarkable. IMPRESSION: Advanced multilevel degenerative tanesha nges of the cervical spine. : [id number] 2018-12-19 Study: Right ankle, 3 views Nancy [place] 14:38:00-00:00 Clinical Indication: - m25.5 71 pain in right ankle and joints of right foot Comparison: None FINDINGS: Multiple views of the right ankle show no acute bony fracture, joint location, or suspicious osseous lesion. Ankle mortise is congruent. Bones are demineralized. Mild medial soft tissue swelli ng is seen. Arterial calcifi cations are noted. Haziness throughout the Kager's fat pad is noted. IMPRESSION: No acute bony abnormality of the rig ht ankle. : [id number] 2018-12-19 Study: Right scapula, 2 views [facility] [place] 14:37:00-00:00 Clinical Indication: - m25.511 pain in right dominic ulder Comparison: None FINDINGS: Multiple views of the right scapula show no acute bony fracture, joint dislocation, or suspicious osseous lesion. Right axillary surgical clips are seen. Soft tissues are unremarkable. IMPRESSION: Normal exam of the right scapula. : [id number] 2018-05-23 Clinical Indication: - chest pain and shortness of breath; [facility] 11:55:00-00:00 Comparison: November 06, 2015 TECHNIQUE: Sequential trans- axial images were obtained with a multi-detector helical CT after iodinated contrast administration. Coronal and sagittal reconstructions were obtained. 3-D MIP reconstructions performed. 100 cc of omnipaque contrast material was used f or the exam. CT Radiation Dose DLP 112 mGy-cm FINDINGS: LUNG PARENCHYMA AND PLEURA: There are no lung nodules. There is no interstitial lung disease. There are no pleural effusions. There is no pneumothorax. AIRWAY: The central airway is normal. MEDIASTINUM: There is no mediastinal lymphadenop athy. HEART: The cardiac chambers appear unremarkable. There is no pericardial effusion. VASCULAR STRUCTURES: There a re no segmental pulmonary emboli noted. The main, right and left pulmonary arteries are normal. The great vessels are unremarkable. The thoracic aorta is unremarkable. There is no thoracic aortic dissec tion or aneurysm. The superior vena cava is unremarkable. OSSEOUS STRUCTURES: There ar e no definite significant osseous abnormalities seen. VISUALIZED UPPER ABDOMEN: The visualized upper a bdomen is unremarkable. IMPRESSION: 1. Stable ectasia of the ascending aorta. 2. No evidence of pulmonary embolism or aortic d issection.. SL: [id number] 2018-05-21 Patient Name: SIMONE PEREZ : 1940 [facility] 13:25:00-00:00 Age: 77 years, Female MR: [id number] Study: Chest 1view DX 05/21/2018 12:59 PM CDT Examination: Chest, PA. Indication: Shortness of breath. Clinical information: - sob. Comparison: Portable chest 02/13/2018 Findings: Lines/tubes: None. Heart: Normal cardiac silhouette. Vessels: The pulmonary vascu lature is within normal limits. Atherosclerotic calcifications of the aortic arch. Mediastinum: No mediastinal or hilar mass or lym phadenopathy. Lungs: No parenchymal mass. No focal consolidati on. Pleura: No pleural effusion. No pneumothorax. Soft tissues: Normal. No axillary mass or lympha denopathy. Bones: No acute osseous abno rmality. Degenerative changes of the thoracic spine. Scoliosis of the thoracolumbar spine. IMPRESSION: No acute radiographic abnormality. SL: [id number] 2018-02-13 Clinical Indication: Abdominal pain with diarrhe a. [facility] 23:59:02-00:00 Comparison: CT of the chest, abdomen and pelvis 11/06/2015. TECHNIQUE: Helical imaging w as performed without injection of IV contrast, from the diaphragm through the symphysis with multiplanar reformations obtained. IV CONTRAST: No IV contrast was administered. GI CONTRAST: No oral contrast was administered. DLP: 300 mGy-cm FINDINGS: LOWER CHEST: There is dependent atelecta sis versus scarring at the lung bases. LIVER: There are no gross ma sses or intrahepatic biliary ductal dilatation noted. BILIARY TREE: There is no significant biliary du ctal dilatation. GALLBLADDER: The gallbladder is present. PANCREAS: The pancreas is un remarkable. The pancreatic duct is normal in caliber. SPLEEN: The spleen is normal in size and there are no parenchymal abnormalities. ADRENALS: The right adrenal gland is unremarkable. The left adrenal gland is unremarkable. KIDNEYS: There is no evidenc e of renal or ureteral calculi. There is no evidence of hydronephrosis. BOWEL: A moderate to large a mount of fecal material is noted throughout the colon. There is no evidence of bowel obstruction. APPENDIX: The appendix is no t visualized, however there are no pericecal inflammatory changes to suggest appendicitis. PELVIS: The urinary bladder is unremarkable. There is no evidence of pelvic mass. PERITONEUM: There is no evidence for free intrap eritoneal fluid or air. SOFT TISSUES: The soft tissu es are unremarkable. There is no evidence of masses or hernias. LYMPH NODES: There are small bilateral inguinal and mesenteric lymph nodes, which are most likely reactive in etiology. VASCULATURE: Atherosclerotic calcifications are seen of the nonaneurysmal abdominal aorta and branching vessels. MUSCULOSKELETAL: There are degenerative changes within the visualized spine. IMPRESSION: A moderate to large amount o f fecal material throughout the colon. Correlate for constipation. No evidence of bowel obstruction. No evidence of obstructive uropathy. SL: SCOUT 2018-02-13 Clinical Indication: - synco pe. Loss of appetite and diarrhea x3 weeks [facility] 18:00:00-00:00 Comparison: 11/14/2017 chest radiograph Findings: Frontal view of the chest was obtained. The cardiac silhouette is normal. There is no lobar consolidation, effusion or vero ma. No pneumothorax. No acute osseous abnormality . There is chronic scoliosis. Surgical clips project over the right axilla. IMPRESSION: No acute cardiopulmonary abnormality. SL: ONEAL 2018-02-13 EXAM: CT BRAIN WITHOUT CONTRAST [facility] 17:54:46-00:00 DATE: 02/13/2018 5:41 PM CDT INDICATION: Syncope. COMPARISON: None. TECHNIQUE: CT images were ob tained from the foramen magnum to the vertex without intravenous contrast on a multidetector CT. Coronal and sagittal reconstructions were also provided for review. CT radiation dose DLP: 677 mGy-cm FINDINGS: No acute intracranial hemorr valencia, midline shift, or mass effect is identified. The romero-white matter differentiation is preserved. The ventricles and sulci are prominent, compatible with mild diffuse pa renchymal volume loss. Moderate chronic microang iopathic changes are noted. Bilateral intraocular lens r eplacements are identified. Mucosal thickening is noted within the paranasal sinuses. The mastoid air cells are clear. The calvarium and skull base are intact. There is atherosclerotic calcification of the carotid siphons. IMPRESSION: No acute intracranial abnormality. SL: [id number] 2017-11-14 Study: Chest 2 views DX [facility] 15:25:19-00:00 Clinical Indication: - SOB ASTHMA Comparison: Chest x-ray from 04/02/2017 FINDINGS: The cardiac silhou ette is normal in size. Mild tortuosity of the descending thoracic aorta is seen. The lungs are clear and without consolidation or congestion. No pleural effusion or pneumothorax is seen. Osseous structures are stable. IMPRESSION: No acute cardiopulmonary disease. SL: [id number] 2017-04-02 2-VIEW CHEST X-RAY. DATE: 04/02/2017 8:57 AM CDT [facility] 09:48:46-00:00 INDICATION: dyspnea TECHNIQUE: Frontal and lateral views of the ches t were performed. COMPARISON:CT chest dated 11/06/2015 FINDINGS: Mildly linear opac ity in the left lower lobe laterally. Otherwise, the lungs are clear. Tortuous mildly dilated aort a. Cardiac silhouette is within normal limits otherwise. Osseous structures demonstra te diffuse osteopenia with mild degenerative changes of the thoracic spine. IMPRESSION: Left lower lobe atelectasis or airspace disease. Recommend follow-up chest x- ray for 4-6 weeks. 2017-02-12 PROCEDURE: ABDOMEN ULTRASOUND [facility] 15:45:46-00:00 CLINICAL INDICATION: Abdominal pain. COMPARISON: Report of a ches t, abdomen and pelvis CT performed 11/06/2015 was reviewed. TECHNIQUE: Grayscale and german ited color sonographic evaluation of the abdomen was performed with standard technique. Static images are submitted. FINDINGS: LIVER: The visualized liver shows n ormal contour, size and morphology with normal parenchymal echotexture. The maximum craniocaudal dimension of the liver measures approximately 16 cm. Hepatopedal flow is demo nstrated in the main portal vein by spectral Dop pler analysis. BILE DUCTS: The intrahepatic and extrahe patic bile ducts are not dilated with the visualized common bile duct measuring 0.53 cm. GALLBLADDER: There are no gallstones, gal lbladder sludge, pericholecystic fluid or wall thickening. PANCREAS: The pancreas is partially obscured. The visualiz ed pancreas is unremarkable. SPLEEN: The spleen is unremarkable and measures 6.6 x 3. 8 x 3.9 cm. KIDNEYS: There is normal renal contou r and morphology with normal parenchymal echotexture. There is no hydronephrosis. The right kidney measures 9.2 x 3.1 x 5.2 cm. The left kidney measures 9.8 x 4.7 x 4.4 cm. AORTA AND INFERIOR VENA CAVA: There are aortic calcificati ons. The caliber of the visualized abdominal aorta is within normal limits. A segment of bowel is noted adjacent to the anterior margin of the distal abdominal aorta limiting evaluation in this location . The visualized inferior vena cava is unremarkable. ASCITES: There is no ascites. IMPRESSION: 1. Abdominal aortic calcifications witho ut demonstrable aneurysmal dilatation. 2. Otherwise unremarkable abdomen ultrasound. SL: 2015-11-06 CT CHEST ABDOMEN AND PELVIS WITHOUT CONTRAST: [facility] 09:12:45-00:00 HISTORY: Thoracic aortic aneurysm, follow-up. TECHNIQUE: Helical images of the chest, abdomen and pelvis were done with IV contrast. Oral contrast was also administered. FINDINGS: The ascending aort a is dilated, measuring 3.9 cm in transverse dimension. There is no evidence of dissection. The remainder of the thoracic aorta is slightly tortuous but otherwise normal radha sidra. No other focal aneurysm s in the chest, abdomen or pelvis are demonstrated. Mild calcified plaques in the aortic arch and abdominal aorta are seen. There is no significant aortoiliac stenosis. The s upraaortic trunks, SMA and c eliac artery show no significant stenoses. The renal arteries and ALVINA are patent although evaluation for stenosis is limited (the study is not a dedicated CTA). Mild scarring in the lung ba ses is noted. There are no other significant pulmonary or pleural abnormalities. There is no mediastinal mass or significant lymph node enlargement. The liver, spleen, pancreas, kidneys and adrenal glands show no significant abnormalities. There is no intra-abdominal mass, free fluid or significant retroperitoneal abnormality. The GI tract is unremarkable. The uterus is absent. There are diffuse degenerati ve changes in the spine with mild kyphosis in the thoracic region. No acute osseous abnormalities are demonstrated. IMPRESSION: 1. Dilated ascending aorta without evidence of d issection. 2. No other acute CT abnormalities in the chest, abdomen or pelvis. SL:13
[2023-07-06 14:14] LABS: Absolute Lymphocytes (CBC) 0.3 K/uL (0.7-4.9); Lymphocytes % 2.5 % (15.3-44.8); MCV 81.6 fL (80-100); MPV 7.7 fL (7.6-11.3); Platelets 208 thou/uL (152-406); RBC Red Blood Cell Count 4.78 M/uL (3.86-4.86)
[2023-07-06 14:36] LABS: Albumin 2.9 g/dL (3.4-5.0); Bilirubin Direct 0.1 mg/dL (0-0.2); Bilirubin Indirect, Calculated 0.3 mg/dL (0.2-0.8); Bilirubin Total 0.4 mg/dL (0.2-1.0); Magnesium 1.7 mg/dL (1.6-2.4); Potassium 3.5 mEq/L (3.5-5.1); Protein, Total 6.5 g/dL (6.4-8.2); Troponin High Sensitivity 14.9 pg/mL (<58.9)
--- NOTE | 2023-07-06 14:54 | RAD REPORT ---
EXAM DESCRIPTION: RAD - Chest Single View - 07/06/2023 2:45 pm CLINICAL HISTORY: CHEST PAIN Chest pain. COMPARISON: <Comparisons> FINDINGS: Portable technique limits examination quality. The lungs are grossly clear. The heart is normal in size. No displaced fractures.Advanced dextroscoli osis of the thoracic spine. IMPRESSION: No acute intrathoracic process suspected.
--- NOTE | 2023-07-06 15:00 | RAD REPORT ---
EXAM DESCRIPTION: CTAbdomen Pelvis W Contrast - 07/06/2023 2:51 pm CLINICAL HISTORY: Abdominal pain. ABD PAIN COMPARISON: <Comparisons> TECHNIQUE: Biphasic CT imaging of the abdomen and pelvis was performed with 100 ml non-ionic IV cont rast. All CT scans are performed using dose optimization technique as appropriate and may include automated exposure control or mA/KV adjustment according to patient size. FINDINGS: The lung bases are clear. The liver demonstrates diffuse fatty infiltration with small low-density cysts. Spleen, pancreas, adr enal glands and kidneys are within normal limits. No bowel obstruction, free air, or abscess. Mild pelvic free fluid. Significant enhancement is seen o f the wall of numerous small bowel loops. No pneumatosis or bowel obstruction. No evidence of signifi cant lymphadenopathy. No suspicious bony findings. IMPRESSION: Small bowel loops demonstrate wall thickening and mucosal enhancement. This is moderatel y severe diffuse in nature throughout the small bowel loops. Enteritis would be the most likely etiol ogy. However, the pattern is generally nonspecific. There is no finding to raise suspicion of ischemi c etiology. Mild pelvic free fluid.
[2023-07-06] MEDS ORDERED: ONDANSETRON 4 MG/2 ML VIAL ONE (15:59)
[2023-07-06 16:17] LABS: Urine Bacteria None Seen /HPF (<20); Urine Bilirubin NEGATIVE (Negative); Urine Blood Trace (Negative); Urine Clarity Clear (Clear); Urine Color Colorless (Yellow); Urine Glucose NEGATIVE (Negative); Urine Protein NEGATIVE (Negative); Urine RBC <5 /HPF (None Seen); Urine Urobilinogen Normal (Normal); Urine pH 6.5 (5.0-7.0)
[2023-07-06 16:28] LABS: Anisocytosis 2+; Blood Morphology Comment NOTED (NOT SEEN); Platelet Estimate ADEQ; White Blood Cell Scan OK (OK)
[2023-07-06 16:29] LABS: Specific Gravity > 1.030 (1.005-1.030)
[2023-07-06] MEDS ORDERED: NA CHLORIDE 0.9% 500 ML ONE (17:09)
--- NOTE | 2023-07-06 17:31 | ER ---
Nurse's Notes [facility] Name: Mikal Adams Age: 82 yrs Sex: Female : 1940 Arrival Date: 07/06/2023 Time: 13:52 Bed 2 Private MD: Diagnosis: Gastroenteritis;Atrial fibrillation with rapid ventricular rate Presentation: 07/06 13:57 Chief complaint: EMS states: n/v/abd pain since this morning, also has ongoing anterior iw wall chest pain since June 12 after Watchman procedure. Coronavirus screen: At this time, the client does not indicate any symptoms associated with coronavirus-19. Ebola Screen: Patient negative for fever greater than or equal to 101.5 degrees Fahrenheit, and additional compatible Ebola Virus Disease symptoms Patient denies exposure to infectious person. Patient denies travel to an Ebola-affected area in the 21 days before illness onset. No symptoms or risks identified at this time. Risk Assessment: Do you want to hurt yourself or someone else? Patient reports no desire to harm self or others. Onset of symptoms was July 06, 2023. 13:57 Method Of Arrival: EMS iw 13:57 Acuity: PEEWEE 3 iw 15:01 Initial Sepsis Screen: Does the patient meet any 2 criteria? No. Patient's initial iw sepsis screen is negative. Does the patient have a suspected source of infection? No. Patient's initial sepsis screen is negative. Care prior to arrival: Medication(s) given: zofran 4 mg, IV initiated. 20 GA, in the right antecubital area. Triage Assessment: 14:05 General: Behavior is calm, cooperative. iw Historical: - Allergies: 13:58 Eliquis; iw 13:58 Levaquin; iw 13:58 Sulfa (Sulfonamide Antibiotics); iw - Home Meds: 13:58 diltiazem HCl 120 mg Oral Capsule, ER 12 hr once [Active]; Eliquis 2.5 mg Oral tablet 2 iw times per day [Active]; - PMHx: 13:58 AAA; Atrial fibrillation; Hypertensive disorder; iw - Immunization history:: Adult Immunizations unknown. - Family history:: not pertinent. - Social history:: Smoking status: unknown. Screenin:13 [facility] ED Fall Risk Assessment (Adult) Score/Fall Risk Level 0 - 2 = Low Risk. Abuse iw screen: Denies threats or abuse. Denies injuries from another. Nutritional screening: No deficits noted. Tuberculosis screening: No symptoms or risk factors identified. Assessment: 14:05 General: Appears in no apparent distress. comfortable. Pain: Complains of pain in iw chest. Neuro: Level of Consciousness is awake, alert, obeys commands, Oriented to person, place, time, situation, Moves all extremities. Full function. Cardiovascular: Patient's skin is warm and dry. Respiratory: Respiratory effort is even, unlabored, Respiratory pattern is regular, symmetrical. GI: Abdomen is flat, non-distended, Reports nausea, vomiting. Derm: Skin is intact, is fragile, is thin. Musculoskeletal: Range of motion:. 16:13 Reassessment: Patient appears in no apparent distress at this time. Patient and/or iw family updated on plan of care and expected duration. Pain level reassessed. Patient is alert, oriented x 3, equal unlabored respirations, skin warm/dry/pink. 16:15 Reassessment: A-fib with RVR on monitor between 108 to 140bpm, Dr. Hernandez notified. aa5 . 16:20 Reassessment: Patient is alert, oriented x 3, equal unlabored respirations, skin aa5 warm/dry/pink. A-fib with RVR up to 177bpm at this time. Pt calm and only c/o nausea at this time, denies palpitations. Repeat EKG was completed. . 16:24 Reassessment: Dr. Hernandez at bedside. . aa5 16:25 Reassessment: Pt states "my heart rate does that at home, it goes fast sometimes and aa5 Dr. Jasso cut my Sotalol to 1/4 of a tab". Pt now takes Sotalol 20 mg instead of 80 mg, pt states "Dr. Jasso said the Sotalol 80 mg was too much". 16:35 Reassessment: Pt took Sotalol 20 mg PO from home medications, okay 'd by Dr. perry Hernanedz. Pt also took losartan, furosemide, potassium chloride, and xarelto from home medications. . 16:58 Reassessment: Patient is alert, oriented x 3, equal unlabored respirations, skin aa5 warm/dry/pink. Cardiovascular: Rhythm is atrial fibrillation. Vital Signs: 15:00 BP 126 / 84; Pulse 102; Resp 19 S; Temp 98.4; Pulse Ox 100% on R/A; iw 16:15 BP 118 / 72; Pulse 140; Resp 16 S; Pulse Ox 95% on R/A; aa5 16:20 BP 119 / 85; Pulse 177; Resp 16 S; Pulse Ox 95% on R/A; aa5 16:40 BP 129 / 81; Pulse 156; Resp 17 S; Pulse Ox 94% on R/A; aa5 16:58 Pulse 109; Resp 16 S; Pulse Ox 95% on R/A; aa5 16:20 HR fluctuating between 150 to 177bpm. aa5 ED Course: 13:55 Patient arrived in ED. eb 13:58 Osmin Hernandez MD is Attending Physician. rt 13:58 Triage completed. iw 13:59 Re Montano, RN is Primary Nurse. iw 13:59 Arm band placed on. iw 14:00 Maintain EMS IV. Dressing intact. Good blood return noted. Site clean \\T\\ dry. Gauge \\T\\ iw site: 20 RAC. 14:05 Initial lab(s) drawn, by me, sent to lab. iw 14:47 XRAY Chest (1 view) In Process Unspecified. EDMS 14:53 CT Abd/Pelvis - IV Contrast Only In Process Unspecified. EDMS 15:37 UAM Sent. iw 16:14 Patient has correct armband on for positive identification. iw 18:28 Provided Education on: . iw 18:28 No provider procedures requiring assistance completed. IV discontinued, intact, iw bleeding controlled, No redness/swelling at site. Pressure dressing applied. Administered Medications: 15:52 Drug: Ondansetron IVP 4 mg Route: IVP; Site: right antecubital; iw 18:27 Follow up: Response: No adverse reaction; Nausea is decreased iw 17:01 Drug: NS 0.9% IV 500 ml Route: IV; Rate: bolus; Site: right antecubital; aa5 18:27 Follow up: IV Status: Completed infusion iw Medication: 18:28 VIS not applicable for this client. iw Outcome: 17:31 Discharge ordered by MD. rt 18:28 Discharged to iw 18:45 Discharged to home via wheelchair, with family. hb 18:45 Condition: stable 18:45 Discharge instructions given to patient, family, Instructed on discharge instructions, follow up and referral plans. medication usage, Demonstrated understanding of instructions, follow-up care, medications, Prescriptions given X 2. 18:46 Patient left the ED. Signatures: Dispatcher [employer] EDRe Bucio RN RN Rosita Vizcaino RN RN aa5 Laurie Tate RN RN hb Botello, Elizabeth eb [place], Ryan, MD MD rt
--- NOTE | 2023-07-06 17:31 | EDPHYS ---
Physician Documentation [facility] Name: Mikal Adams Age: 82 yrs Sex: Female : 1940 Arrival Date: 07/06/2023 Time: 13:52 Bed 2 Private MD: ED Physician Osmin Hernandez HPI: 07/06 14:18 This 82 yrs old Female presents to ER via EMS with complaints of Nausea/Vomiting, rt Abdominal Pain, Chest Pain. 14:18 Patient had a Watchman procedure performed on June 12 [address] [facility]. The patient reports that she has had a chest pain since the procedure, is not appreciably worsened. He states that the main reason that she called EMS today was for nausea, vomiting, generalized abdominal pain that started today. Patient states that last night, she ate a hamburger that she believes that may have been bad. Another family member who ate the same meat has had similar symptoms. She denies other acute complaints at this time. Pain is aching nature, nonradiating, moderate severity, no other aggravating or alleviating factors. Patient did receive Zofran via EMS, she states that she no longer has any nausea or abdominal pain.. Historical: - Allergies: 13:58 Eliquis; iw 13:58 Levaquin; iw 13:58 Sulfa (Sulfonamide Antibiotics); iw - Home Meds: 13:58 diltiazem HCl 120 mg Oral Capsule, ER 12 hr once [Active]; Eliquis 2.5 mg Oral tablet 2 iw times per day [Active]; - PMHx: 13:58 AAA; Atrial fibrillation; Hypertensive disorder; iw - Immunization history:: Adult Immunizations unknown. - Family history:: not pertinent. - Social history:: Smoking status: unknown. ROS: 14:18 Constitutional: Negative for fever, chills, and weight loss. rt 14:18 Respiratory: Negative for shortness of breath, cough, wheezing, and pleuritic chest pain, MS/Extremity: Negative for injury and deformity, Skin: Negative for injury, rash, and discoloration, Neuro: Negative for headache, weakness, numbness, tingling, and seizure, Psych: Negative for depression, anxiety, suicide ideation, homicidal ideation, and hallucinations. 14:18 Cardiovascular: Positive for chest pain, Negative for edema. 14:18 Abdomen/GI: Positive for abdominal pain, nausea and vomiting. Exam: 14:18 Constitutional: This is a well developed, well nourished patient who is awake, alert, rt and in no acute distress. Head/Face: Normocephalic, atraumatic. Chest/axilla: Normal chest wall appearance and motion. Nontender with no deformity. No lesions are appreciated. Cardiovascular: Regular rate and rhythm with a normal S1 and S2. No gallops, murmurs, or rubs. Normal PMI, no JVD. No pulse deficits. Respiratory: Lungs have equal breath sounds bilaterally, clear to auscultation and percussion. No rales, rhonchi or wheezes noted. No increased work of breathing, no retractions or nasal flaring. Abdomen/GI: Soft, non-tender, with normal bowel sounds. No distension or tympany. No guarding or rebound. No evidence of tenderness throughout. Skin: Warm, dry with normal turgor. Normal color with no rashes, no lesions, and no evidence of cellulitis. MS/ Extremity: Pulses equal, no cyanosis. Neurovascular intact. Full, normal range of motion. Neuro: Awake and alert, GCS 15, oriented to person, place, time, and situation. Cranial nerves II-XII grossly intact. Motor strength 5/5 in all extremities. Sensory grossly intact. Cerebellar exam normal. Normal gait. Psych: Awake, alert, with orientation to person, place and time. Behavior, mood, and affect are within normal limits. 15:15 ECG was reviewed by the Attending Physician. rt 17:33 ECG was reviewed by the Attending Physician. rt Vital Signs: 15:00 BP 126 / 84; Pulse 102; Resp 19 S; Temp 98.4; Pulse Ox 100% on R/A; iw 16:15 BP 118 / 72; Pulse 140; Resp 16 S; Pulse Ox 95% on R/A; aa5 16:20 BP 119 / 85; Pulse 177; Resp 16 S; Pulse Ox 95% on R/A; aa5 16:40 BP 129 / 81; Pulse 156; Resp 17 S; Pulse Ox 94% on R/A; aa5 16:58 Pulse 109; Resp 16 S; Pulse Ox 95% on R/A; aa5 16:20 HR fluctuating between 150 to 177bpm. aa5 MDM: 13:58 Patient medically screened. rt 17:33 Differential diagnosis: Gastroenteritis, colitis, dehydration, A-fib. Data reviewed: rt vital signs, nurses notes, lab test result(s), EKG, radiologic studies. Consideration of Admission/Observation Escalation of care including admission/observation considered. Throughout her stay in the ED, the patient went from having a sinus tachycardia at a rate at about 100 to have an atrial fibrillation with rapid ventricular rate. Patient states that she is due to take her sotalol dose which was given to her. This did take her out of A-fib and did improve her rate to about 100 again. The patient had no worsening chest pain since then. She has had a chest pain that is unchanged for several weeks following a Watchman procedure. This was unchanged, her primary visit today was due to nausea, vomiting which she attributes to eating bad food, possibly food poisoning. The symptoms have significantly improved with antiemetics in the ED. CT scan does show findings consistent with an enteritis, will treat empirically for bacterial etiology given exposure to hamburger. I did offer patient admission to the hospital for observation due to the A-fib, she states that she is strongly desirous of discharge, states that her heart rate always increases when she is due for sotalol. Patient to follow-up with her primary care provider as an outpatient. Strict return precautions were given to patient. Labs are benign, not consistent with sepsis.. I considered the following discharge prescriptions or medication management in the emergency department Medications were administered in the Emergency Department. See MAR. Independent interpretation of the following test(s) in the Emergency Department CT Scan: My interpretation is No bowel obstruction seen on interpretation of the CT scan images. Care significantly affected by the following chronic conditions: Atrial fibrillation. Counseling: I had a detailed discussion with the patient and/or guardian regarding: the historical points, exam findings, and any diagnostic results supporting the discharge/admit diagnosis, lab results, radiology results, the need for outpatient follow up, to return to the emergency department if symptoms worsen or persist or if there are any questions or concerns that arise at home. Response to treatment: the patient's symptoms have markedly improved after treatment. 07/06 13:59 Order name: Basic Metabolic Panel; Complete Time: 15:01 rt 07/06 13:59 Order name: CBC with Diff; Complete Time: 16:33 rt 07/06 13:59 Order name: LFT's; Complete Time: 15:01 rt 07/06 13:59 Order name: Magnesium; Complete Time: 15:01 rt 07/06 13:59 Order name: Troponin HS; Complete Time: 15:01 rt 07/06 13:59 Order name: Lipase; Complete Time: 15:01 rt 07/06 13:59 Order name: UAM; Complete Time: 16:33 rt 07/06 16:28 Order name: CBC Smear Scan; Complete Time: 16:33 EDMS 07/06 13:59 Order name: XRAY Chest (1 view); Complete Time: 15:01 rt 07/06 13:59 Order name: CT Abd/Pelvis - IV Contrast Only; Complete Time: 15:01 rt 07/06 13:59 Order name: EKG; Complete Time: 13:59 rt 07/06 16:15 Order name: EKG; Complete Time: 16:16 rt 07/06 13:59 Order name: Cardiac monitoring; Complete Time: 15:37 rt 07/06 13:59 Order name: EKG - Nurse/Tech; Complete Time: 15:37 rt 07/06 13:59 Order name: IV Saline Lock; Complete Time: 15:37 rt 07/06 13:59 Order name: Labs collected and sent; Complete Time: 15:37 rt 07/06 13:59 Order name: O2 Per Protocol; Complete Time: 15:37 rt 07/06 13:59 Order name: O2 Sat Monitoring; Complete Time: 15:37 rt 07/06 16:15 Order name: EKG - Nurse/Tech; Complete Time: 16:24 rt EC:15 Rate is 103 beats/min. Rhythm is regular, Sinus tachycardia with No ectopy, LVH. QRS rt [place] is Normal. [place] interval is normal. QRS interval is normal. QT interval is normal. No Q waves. Clinical impression: NSR w/ Non-specific ST/T Changes. 17:33 Rate is 156 beats/min. Rhythm is irregularly irregular, A fib with No ectopy, Rate rt related ST and T wave change. QRS [place] is Normal. QRS interval is normal. QT interval is normal. No Q waves. Administered Medications: 15:52 Drug: Ondansetron IVP 4 mg Route: IVP; Site: right antecubital; iw 18:27 Follow up: Response: No adverse reaction; Nausea is decreased iw 17:01 Drug: NS 0.9% IV 500 ml Route: IV; Rate: bolus; Site: right antecubital; aa5 18:27 Follow up: IV Status: Completed infusion iw Disposition Summary: 07/06/23 17:31 Discharge Ordered Location: Home rt Problem: new rt Symptoms: have improved rt Condition: Stable rt Diagnosis - Gastroenteritis rt - Atrial fibrillation with rapid ventricular rate rt Followup: rt - With: Private Physician - When: 2 - 3 days - Reason: Followup: rt - With: Emergency Department - When: As needed - Reason: Worsening of condition Discharge Instructions: - Discharge Summary Sheet rt - Atrial Fibrillation rt - Viral Gastroenteritis, Adult rt - Left Atrial Appendage Closure Device Implantation, Care After rt Forms: - Medication Reconciliation Form rt - Thank You Letter rt - Antibiotic Education rt - Prescription Opioid Use rt - Patient Portal Instructions rt - Leadership Thank You Letter rt Prescriptions: - Augmentin 875-125 mg Oral Tablet - take 1 tablet by ORAL route every 12 hours for 10 days; 20 tablet; Refills: 0, rt Product Selection Permitted - promethazine 25 mg Oral Tablet - take 1 tablet by ORAL route every 6 hours As needed; 15 tablet; Refills: 0, rt Product Selection Permitted Signatures: Dispatcher [employer] Re Stevenson RN RN iw Calderon, Audri, RN RN aa5 Osmin Hernandez MD MD rt
[2023-07-06 18:50] VITALS: TEMP 98.4
[2023-07-06 18:55] VITALS: BP 129/81
[2023-07-06 18:57] VITALS: O2SAT 95
--- NOTE | 2023-07-08 15:31 | EKG ---
Test Date: 2023-07-06 Test Time: 15:08:32 Risk Management Analyst: DAI MEASUREMENT RESULTS: Intervals: Rate: 103 OK: 182 QRSD: 80 QT: 338 QTc: 442 Flora: P: 62 OK: 182 QRS: 40 T: -29 INTERPRETIVE STATEMENTS: Sinus tachycardia Left ventricular hypertrophy with repolarization abnormality Abnormal ECG Compared to ECG 05/18/2023 11:05:51 Left ventricular hypertrophy now present Early repolarization now present Atrial fibrillation no longer present Electronically Signed On 07-08-23 15:30:11 CDT by Tobin Frazier
--- NOTE | 2023-07-08 15:31 | EKG ---
Test Date: 2023-07-06 Test Time: 16:19:58 Fruit Cutter: DAI MEASUREMENT RESULTS: Intervals: Rate: 156 OK: QRSD: 76 QT: 268 QTc: 431 Slater: P: OK: QRS: 40 T: 257 INTERPRETIVE STATEMENTS: Atrial fibrillation Voltage criteria for left ventricular hypertrophy Marked ST abnormality, possible inferolateral subendocardial injury Abnormal ECG Compared to ECG 07/06/2023 15:08:32 ST (T wave) deviation now present Sinus tachycardia no longer present Early repolarization no longer present Electronically Signed On 07-08-23 15:30:06 CDT by Tobin Frazier
== END 2023-07-06 18:46 | disposition home or self-care (01) ==
LOC: ER 13:52
DX: K52.9 Noninfective gastroenteritis and colitis, unspecified (principal); I48.19 Other persistent atrial fibrillation; R11.2 Nausea with vomiting, unspecified; I10 Essential (primary) hypertension; Z79.01 Long term (current) use of anticoagulants; Z88.1 Allergy status to other antibiotic agents; Z88.2 Allergy status to sulfonamides; Z88.8 Allergy status to other drugs, medicaments and biological substances
CPT/HCPCS: 96361; 93005 ×2; 85025; 81001; 80048; 36415; 83735; 80076; 84484; 83690; 74177; 71045; 96374; 99284; Q9967; J2405; J7040

== ENCOUNTER → 2023-07-27 | Day surgery (SDC) | payer OTHER, MEDICARE ==
[~2023-07-27] MED LIST: ATROPINE SULF 1 MG/10 ML SYR IV ONE; FLUMAZENIL 0.1 MG/ML (5 mL VIAL) IV ONE; MIDAZOLAM HCL 5 ML ONE; NA CHLORIDE 0.9% 500 ML ONE; SIMPLE SYRUP 20 ML, LIDOCAINE 2% VISCOUS ORAL 20 ML MM ONE
--- NOTE | 2023-07-27 09:46 | OP ---
Date of Procedure: 07/27/2023 Surgeon: AKSHAT CABAN Procedure Performed: Transesophageal echocardiogram. Indication: Atrial fibrillation, post Watchman placement. Description Of Procedure: After risks, benefits, and alternatives were explained, patient agreed to procedure and signed informed consent. Patient was brought to the cardiac catheterization laboratory . After proper time-out, the back of the throat was numbed using viscous lidocaine and then the SHANELLE probe was inserted without difficulty and Watchman seated well. No leak. No thrombus. SHANELLE probe wa s removed. The patient was sent to recovery in stable condition. Conclusion: Successful transesophageal echocardiogram with the Watchman seated well and no thrombus or leak. SR/MODL Voice ID: [id number] Report ID: [id number]
--- NOTE | 2023-07-31 09:04 | TEE ---
TRANSESOPHAGEAL ECHOCARDIOGRAM REPORT CARDIOLOGY DEPARTMENT DATE OF STUDY: 07/27/2023 HEIGHT: 5'1" WEIGHT: 98 lbs DIAGNOSIS: POST WATCHMAN REFERENCE DATA EXPERT COMMENTS: SHANELLE CARDIAC HISTORY: CATHERIZATION: NO SURGERY: NO PROSTHETIC VALVE: NO PACEMAKER: NO 2 DIMENSIONAL ASSESSMENT: RIGHT ATRIUM: LEFT ATRIUM: RIGHT VENTRICLE: LEFT VENTRICLE: TRICUSPID VALVE: MITRAL VALVE: PULMONIC VALVE: AORTIC VALVE: PERICARDIAL EFFUSION: AORTIC ROOT: EJECTION FRACTION: % LEFT VENTRICULAR WALL MOTION: DOPPLER/COLOR FLOW: COMMENTS: 1. TRANSESOPHAGEAL PROBE WAS INSERTED, NO DIFFICULTY 2. WATCHMAN DEVICE IS SEATED WELL, NO LEAK AND NO THROMBUS TECHNOLOGIST: RADHIKA TONG
== END ==
LOC: EKG 07:47
PROVIDERS: ATTEND Internal Medicine
DX: I48.91 Unspecified atrial fibrillation (principal); Z98.890 Other specified postprocedural states; I11.0 Hypertensive heart disease with heart failure; I50.9 Heart failure, unspecified; I35.0 Nonrheumatic aortic (valve) stenosis; I71.21 Aneurysm of the ascending aorta, without rupture; Z88.2 Allergy status to sulfonamides; Z88.3 Allergy status to other anti-infective agents; Z88.8 Allergy status to other drugs, medicaments and biological substances
CPT/HCPCS: 93312; J2250; J7040; J0461

== ENCOUNTER 2024-07-26 16:22 | Emergency (ER) | payer OTHER, MEDICARE ==
[2024-07-26] MEDS ORDERED: ONDANSETRON 4 MG/2 ML VIAL ONE (16:47)
[2024-07-26] MEDS ORDERED: MORPHINE 4 MG/ML SYR ONE (16:48)
--- NOTE | 2024-07-26 17:32 | RAD REPORT ---
EXAM DESCRIPTION: CT - Chest Abd Pelvis Wo Con - 07/26/2024 5:10 pm CLINICAL HISTORY: Fall with chest and abdominal pain COMPARISON: 2022 TECHNIQUE: Computed axial tomography of the chest, abdomen and pelvis was obtained. Oral contrast wa s given. IV contrast was not requested. All CT scans are performed using dose optimization technique as appropriate and may include automated exposure control or mA/KV adjustment according to patient size. FINDINGS: The evaluation of mediastinum, alfonso, vessels and solid organs is limited secondary to the lack of IV contrast administration A lung contusion is not present. Mildly displaced fracture 6 lateral left rib. Markedly displaced fracture seventh and in date lateral right rib Mildly displaced fracture posterior left ninth rib Subcutaneous emphysema left lateral chest wall. No pneumothorax Small left pleural. A pericardial effusion is not seen. A mediastinal hematoma is not seen. Watchmen device within the heart 4.8 centimeter aneurysm ascending thoracic aorta mildly increased size from the prior exam which it m easured 4.6 centimeters. The liver, spleen, pancreas, adrenals, kidneys and bladder do not demonstrate a traumatic injury. There is no evidence of diverticulitis. IMPRESSION: Fractures sixth through ninth left ribs with small pleural effusion 4.8 centimeter aneurysm extending thoracic aorta
[2024-07-26] MEDS ORDERED: FENTANYL CITR 100 MCG/2 ML ONE (18:06)
--- NOTE | 2024-07-26 18:50 | EDPHYS ---
Physician Documentation [facility] Name: Mikal Adams Age: 83 yrs Sex: Female : 1940 Arrival Date: 07/26/2024 Time: 16:22 Bed 5 Private MD: ED Physician Osmin Hernandez HPI: 07/26 19:42 This 83 yrs old Female presents to ER via EMS with complaints of Back Injury. rt 19:42 Patient presents to the ED with pain to the left lateral chest wall. Patient states rt that her with dementia through her against a table, causing pain to that area. She denies difficulty breathing,, she denies other acute complaints at this time, symptoms are moderate in severity, no other aggravating or elevating factors.. Historical: - Allergies: 16:25 Eliquis; hb 16:25 Levaquin; hb 16:25 Sulfa (Sulfonamide Antibiotics); hb - Home Meds: 16:25 diltiazem HCl 120 mg Oral capsule once [Active]; Eliquis 2.5 mg Oral tablet 2 times per hb day [Active]; - PMHx: 16:25 AAA; Atrial fibrillation; Hypertensive disorder; hb - Immunization history:: Adult Immunizations up to date. - Infectious Disease History:: Denies. - Social history:: Smoking status: Patient denies any tobacco usage or history of. - Family history:: not pertinent. ROS: 19:42 Constitutional: Negative for fever, chills, and weight loss, Respiratory: Negative for rt shortness of breath, cough, wheezing, and pleuritic chest pain, Abdomen/GI: Negative for abdominal pain, nausea, vomiting, diarrhea, and constipation, MS/Extremity: Negative for injury and deformity, Skin: Negative for injury, rash, and discoloration, Neuro: Negative for headache, weakness, numbness, tingling, and seizure, 19:42 Cardiovascular: Positive for chest pain, Negative for edema, 19:42 Back: Positive for pain at rest, pain with movement, Exam: 19:42 Constitutional: This is a well developed, well nourished patient who is awake, alert, rt and in no acute distress. Head/Face: Normocephalic, atraumatic. Cardiovascular: Regular rate and rhythm with a normal S1 and S2. No gallops, murmurs, or rubs. Normal PMI, no JVD. No pulse deficits. Respiratory: Lungs have equal breath sounds bilaterally, clear to auscultation and percussion. No rales, rhonchi or wheezes noted. No increased work of breathing, no retractions or nasal flaring. Abdomen/GI: Soft, non-tender, with normal bowel sounds. No distension or tympany. No guarding or rebound. No evidence of tenderness throughout. Skin: Warm, dry with normal turgor. Normal color with no rashes, no lesions, and no evidence of cellulitis. MS/ Extremity: Pulses equal, no cyanosis. Neurovascular intact. Full, normal range of motion. Neuro: Awake and alert, GCS 15, oriented to person, place, time, and situation. Cranial nerves II-XII grossly intact. Motor strength 5/5 in all extremities. Sensory grossly intact. Cerebellar exam normal. Normal gait. 19:42 Chest/axilla: Tenderness to the left lateral lower chest wall, no crepitus felt, no lacerations, bruising, underlying skin changes. Vital Signs: 16:23 BP 167 / 89; Pulse 68; Resp 20; Temp 97.7; Pulse Ox 100% on R/A; Weight 46.72 kg; hb Height 5 ft. 0 in. ; Pain 10/10; 17:01 BP 155 / 81; Pulse 74; Resp 17; Pulse Ox 97% on R/A; rs5 18:35 BP 158 / 93; Pulse 85; Resp 16; Pulse Ox 96% ; ko1 19:25 BP 162 / 91; Pulse 91; Resp 17; Temp 97.7; Pulse Ox 98% on R/A; Pain 8/10; bm8 16:23 Body Mass Index 20.12 (46.72 kg, 152.4 cm) hb 16:23 Pain Scale: Adult hb 19:25 Pain Scale: Adult bm8 [place] Coma Score: 19:25 Eye Response: spontaneous(4). Motor Response: obeys commands(6). Verbal Response: bm8 oriented(5). Total: 15. MDM: 16:29 Patient medically screened. rt 19:42 Differential diagnosis: Contusion, rib fracture, splenic laceration. Data reviewed: rt vital signs, nurses notes, radiologic studies. Consideration of Admission/Observation Escalation of care including admission/observation considered. Discussed with patient's primary care provider, Dr. Jasso, states no indications for admission at this time, will follow-up patient on Sunday, will call in pain medications.. I considered the following discharge prescriptions or medication management in the emergency department Medications were administered in the Emergency Department. See MAR. Independent interpretation of the following test(s) in the Emergency Department CT Scan: My interpretation is Rib fracture syndrome interpretation of CT scan images. Test considered but Not performed: EKG: Pain is clearly traumatic in nature, EKG not indicated. Care significantly affected by the following chronic conditions: Thoracic aortic aneurysm. Counseling: I had a detailed discussion with the patient and/or guardian regarding the historical points, exam findings, and any diagnostic results supporting the discharge/admit diagnosis, radiology results, the need for outpatient follow up, to return to the emergency department if symptoms worsen or persist or if there are any questions or concerns that arise at home. Response to treatment: the patient's symptoms have mildly improved after treatment. 07/26 16:38 Order name: CT Chest Abdomen Pelvis W/O Contrast; Complete Time: 17:39 rt 07/26 18:46 Order name: INCENTIVE SPIROMETRY rt Administered Medications: 16:40 Drug: morphine IVP or IV 4 mg IVP once over 4 mins Route: IVP; Infused Over: 4 mins; rs5 Site: right antecubital; 17:02 Follow up: Response: No adverse reaction; Pain is decreased rs5 16:40 Drug: Ondansetron IVP 4 mg IVP once; over 2 minutes Route: IVP; Site: right antecubital;rs5 17:02 Follow up: Response: No adverse reaction rs5 18:07 Drug: fentaNYL (PF) IVP 75 mcg IVP once Route: IVP; Site: right antecubital; rs5 19:25 Follow up: Response: No adverse reaction bm8 19:00 Drug: HYDROcodone-acetaminophen PO 5 mg-325 mg 1 tabs PO once Route: PO; bm8 19:25 Follow up: Response: No adverse reaction bm8 Disposition Summary: 07/26/24 18:49 Discharge Ordered Notes: Location: Home rt Problem: new rt Symptoms: have improved rt Condition: Stable rt Diagnosis - Multiple left-sided rib fractures rt Followup: rt - With: Private Physician - When: 2 - 3 days - Reason: Discharge Instructions: - Discharge Summary Sheet rt - Rib Fracture rt - How to Use an Incentive Spirometer rt Forms: - Medication Reconciliation Form rt - Antibiotic Education rt - Prescription Opioid Use rt - Patient Portal Instructions rt - Leadership Thank You Letter rt Prescriptions: - Ultram 50 mg Oral Tablet - take 1 tablet ORAL route every 6 hours As needed; 12 tablet; Refills: 0, rt Product Selection Permitted Signatures: Dispatcher [employer] Laurie Taylor RN RN Osmin Hernandez MD MD rt Jeffry Grande RN RN rs5 Donnell Taylor RN RN bm8
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
[2024-07-26] MEDS ORDERED: HYDROCODONE/APAP 5/325 MG TAB ONE (19:02)
[2024-07-26 19:48] VITALS: TEMP 97.7
[2024-07-26 19:53] VITALS: BP 162/91; O2SAT 98
== END 2024-07-26 19:26 | disposition home or self-care (01) ==
LOC: ER 16:22
DX: S22.42XA Multiple fractures of ribs, left side, initial encounter for closed fracture (principal); I10 Essential (primary) hypertension; I48.91 Unspecified atrial fibrillation; Z79.01 Long term (current) use of anticoagulants
CPT/HCPCS: 71250; 74176; 96375; 96374; 99285; J3010; J2405